=== PATIENT | male | born 1985 | race Caucasian/White ===

== ENCOUNTER 2016-05-07 09:52 | Observation (INO) ==
--- NOTE | 2016-05-07 10:03 | Emergency Department Note ---
Disposition Clinical Impression: Priapism Disposition: Admitted As Inpatient Condition: Good Referrals: Ramon Perry MD [Non-Partnered Physician] - Forms: ED Satisfaction Letter Male Urogenital HPI - General Chief complaint: ED Urogenital-Male Stated complaint: priapism Time Seen by Provider: 05/07/16 10:01 Source: patient Mode of arrival: ambulatory Limitations: no limitations Nursing Notes Reviewed: Yes Vital Signs Reviewed: Yes - History of Present Illness Pt Subjective Complaint: other (priapism) Duration: constant Location: penis Severity scale (1-10): 10 Improves with: none Worsens with: none other (multiple prior episodes) Reports: denies other symptoms - Related Data Home Medications Medication Instructions Recorded Confirmed Aripiprazole [Abilify] 15 mg PO DAILY 10/12/15 10/12/15 CarBAMazepine [Carbamazepine ER] 600 mg PO BID 10/12/15 10/12/15 Gabapentin [Neurontin] 600 mg PO TID 10/12/15 10/12/15 Ibuprofen [Motrin] 200 mg PO Q6HR PRN 10/12/15 10/12/15 Previous Rx's Medication Instructions Recorded Docusate [Colace] 100 mg PO BID #30 capsule 10/12/15 OxyCODONE/APAP 10/325 [Percocet 1 each PO Q4HR PRN #30 tablet 10/12/15 10/325 MG] Amoxicillin/Clavulanate [Augmentin] 875 mg PO BIDWM 14 Days 10/15/15 Ibuprofen [Motrin] 800 mg PO Q8HR #90 tablet 10/16/15 Ondansetron HCl [Zofran] 4 mg PO 1-3XD PRN #10 tablet 10/16/15 HYDROcodone/Acet 5/325 mg [[place] 1 tab PO Q6H PRN #12 tab 12/14/15 5-325 mg] Hydrocodone/Acetaminophen [[place] 1 tab PO Q6H PRN #10 tab 01/05/16 7.5-325 Tablet] Ibuprofen [Motrin] 600 mg PO Q8HR PRN #20 tab 02/28/16 Penicillin VK 500 mg PO QID #40 tablet 02/28/16 Tramadol HCl [Ultram] 50 mg PO TID PRN #20 tab 03/06/16 Allergies Allergy/AdvReac Type Severity Reaction Status Date / Time Bee Pollen Allergy Anaphylaxis Verified 03/06/16 08:39 All systems ED: reviewed and negative except as stated. Constitutional: Denies: fever, chills, weakness Gastrointestinal: Denies: nausea, vomiting Past Medical History - Past Medical History Source: patient, old records reviewed, nursing notes reviewed Medical history: Reports: hepatitis, hyperlipidemia, hypertension, other Surgical history: Reports: other (Priapism correction, R. wrist tendon replacement) Psychiatric history: Reports: anxiety, bipolar, depression - Social History Smoking Status: Current every day smoker Smokeless Tobacco Status: No Alcohol use: Reports: rarely Drug use: Reports: other Physical Exam - General Limitations: no limitations General appearance: alert, in no apparent distress - Head Head exam: normal inspection - Eye Eye exam: Present: normal appearance - ENT ENT exam: normal exam, normal oropharynx, mucous membranes moist, normal external ear exam - Neck Neck exam: Present: normal inspection, full ROM, trachea midline - Chest Chest inspection: Present: normal inspection, symmetric chest wall rise - Respiratory Respiratory exam: Present: normal lung sounds bilaterally - Cardiovascular Cardiovascular exam: Present: regular rate, normal rhythm, normal heart sounds - Male exam: Present: priapism - Extremities Exam Extremities exam: Present: normal inspection, full ROM - Back Exam Back exam: Present: normal inspection, full ROM - Neurological Exam Neurological exam: Present: alert, oriented X3, normal gait - Psychiatric Psychiatric exam: Present: normal affect, normal mood - Skin Skin exam: Present: warm, dry, intact, normal color Course - Reevaluation(s) Reevaluation #1: Dr. Montalvo to take him to the OR Time: 10:53 Vital Signs Temperature 97.8 F 05/07/16 10:01 Pulse Rate 92 05/07/16 10:01 Respiratory Rate 12 05/07/16 10:01 Blood Pressure 134/68 05/07/16 10:01 O2 Sat by Pulse Oximetry 100 05/07/16 10:01 Temperature 97.8 F 05/07/16 10:01 Pulse Rate 92 05/07/16 10:01 Respiratory Rate 12 05/07/16 10:01 Blood Pressure 134/68 05/07/16 10:01 O2 Sat by Pulse Oximetry 100 05/07/16 10:01 Oxygen Delivery Oxygen Delivery Room Air Urogenital-Male - Differential Diagnosis Likely: urinary tract infection, priapism, epididymitis, prostatitis, acute urinary retention, sexually tramsmitted disease - Medical Records Medical records reviewed: Yes I reviewed the patient's medical records.
[2016-05-07] MEDS ORDERED: Ondansetron 4 MG/2 ML VIAL IV ONE (10:09)
[2016-05-07] MEDS ORDERED: *HR* HYDROmorphone (PF) 1 MG/ML SYRINGE IV ONE (10:09)
[2016-05-07] MEDS ORDERED: *HR* LORazepam 2 MG/ML VIAL IVP ONE (10:39)
[2016-05-07] MEDS ORDERED: *HR* LORazepam 2 MG/ML VIAL ONE (10:40)
[2016-05-07] MEDS ORDERED: Ondansetron 4 MG/2 ML VIAL IVP ONE ×2 (10:50→12:38)
[2016-05-07] MEDS ORDERED: *HR* HYDROmorphone (PF) 1 MG/ML SYRINGE IVP ONE (10:50)
--- NOTE | 2016-05-07 11:00 | Urology History & Physical ---
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 He requires aspiration and phenylephrine injections. He states that the degree of pain at this time is too severe to proceed at the bedside. We'll proceed in the operating room within 1 hour. We discussed the risks of the procedure which includes injury to the penis, injury to the urethra, recurrent priapism, permanent erectile dysfunction, hematoma or bleeding, need for further surgery. We also discussed that he may require a distal shunt in the operating room and he accepts this possibility. History of Present Illness Chief complaint: priapism HPI: Mr. Sarabia is a 31 year old male well-known to urology service for recurrent priapism. He's had painful, 100% erection for the last 10 hours. Urinated this morning but has not urinated since. No relief in pain or decrease in the rigidity of the erection. He denies any new medications or illicit drugs Past Med Surg Social Fam HX - Past Medical History Medical history: hepatitis, hyperlipidemia, hypertension, other Psychiatric history: anxiety, bipolar, depression - Past Surgical History Surgical History: other (Priapism correction, R. wrist tendon replacement) - Social History Smoking Status: Current every day smoker Smokeless Tobacco Status: No Alcohol use: rarely Drug use: other - Family History Mother Living Status: Still Living Hx Family Cardiac Disorders: Yes Grandfather Hx Family Cardiac Disorders: Yes ([place]) Medications and Allergies Aripiprazole [Abilify] 15 mg PO DAILY 10/12/15 [History] CarBAMazepine [Carbamazepine ER] 600 mg PO BID 10/12/15 [History] Docusate [Colace] 100 mg PO BID #30 capsule 10/12/15 [Rx] Gabapentin [Neurontin] 600 mg PO TID 10/12/15 [History] Ibuprofen [Motrin] 200 mg PO Q6HR PRN 10/12/15 [History] OxyCODONE/APAP 10/325 [Percocet 10/325 MG] 1 each PO Q4HR PRN #30 tablet [Rx] Amoxicillin/Clavulanate [Augmentin] 875 mg PO BIDWM 14 Days 10/15/15 [Rx] Ibuprofen [Motrin] 800 mg PO Q8HR #90 tablet 10/16/15 [Rx] Ondansetron HCl [Zofran] 4 mg PO 1-3XD PRN #10 tablet 10/16/15 [Rx] HYDROcodone/Acet 5/325 mg [[place] 5-325 mg] 1 tab PO Q6H PRN #12 tab 12/14/15 [Rx ] Hydrocodone/Acetaminophen [[place] 7.5-325 Tablet] 1 tab PO Q6H PRN #10 tab [Rx] Ibuprofen [Motrin] 600 mg PO Q8HR PRN #20 tab 02/28/16 [Rx] Penicillin VK 500 mg PO QID #40 tablet 02/28/16 [Rx] Tramadol HCl [Ultram] 50 mg PO TID PRN #20 tab 03/06/16 [Rx] Allergies Bee Pollen Allergy (Verified 03/06/16 08:39) Anaphylaxis Review of Systems - Constitutional no fever(s) - EENT Nose, mouth and throat: no dizziness - Cardiovascular no chest pain - Respiratory no cough - Gastrointestinal abdominal pain, nausea - Genitourinary other - Musculoskeletal no back pain - Integumentary no erythema - Neurological no confusion - Psychiatric no anxiety - Hematologic/Lymphatic no easy bleeding - Allergic/Immunologic no throat swelling Exam Initial Vital Signs Temp Pulse Resp BP Pulse Ox 97.8 F 92 12 134/68 100 05/07/16 10:01 05/07/16 10:01 05/07/16 10:01 05/07/16 10:01 05/07/16 10:01 - General physical appearance Present: severe pain - Eyes Present: PERRL - ENT Present: normal nares - Neck Present: no masses - Respiratory Present: normal respiratory effort - Cardiovascular Cardiovascular exam IM: RRR - Abdomen Abdomen: Present: soft - Integumentary Present: no rash - Neurologic Present: normal coordination - Additional Findings 100% erection. No abnormal ecchymosis on the skin. Very tender to touch Urology Results - Labs All other labs normal.
--- NOTE | 2016-05-07 11:20 | Anesthesia Evaluation PreOp ---
Date of Encounter: 05/07/16 Time of Encounter: 11:18 - Past History Planned Operation: drainage priapism Cardiac History: HTN, Hyperlipidemia Pulmonary History: Smoker [employer] History: Other (anxiety, bipolar depression) Other Medical History: Hepatic (hcv), Other (h/o recurrent priapism, crohn's) Anesthesia History: No Prior Anesthetic Complications, Past Anesthesia (priapism , wrist, cholecys) Alcohol Use: rarely Drug use: other Medications and Allergies Aripiprazole [Abilify] 15 mg PO DAILY 10/12/15 [History] CarBAMazepine [Carbamazepine ER] 600 mg PO BID 10/12/15 [History] Docusate [Colace] 100 mg PO BID #30 capsule 10/12/15 [Rx] Gabapentin [Neurontin] 600 mg PO TID 10/12/15 [History] Ibuprofen [Motrin] 200 mg PO Q6HR PRN 10/12/15 [History] OxyCODONE/APAP 10/325 [Percocet 10/325 MG] 1 each PO Q4HR PRN #30 tablet [Rx] Amoxicillin/Clavulanate [Augmentin] 875 mg PO BIDWM 14 Days 10/15/15 [Rx] Ibuprofen [Motrin] 800 mg PO Q8HR #90 tablet 10/16/15 [Rx] Ondansetron HCl [Zofran] 4 mg PO 1-3XD PRN #10 tablet 10/16/15 [Rx] HYDROcodone/Acet 5/325 mg [[place] 5-325 mg] 1 tab PO Q6H PRN #12 tab 12/14/15 [Rx ] Hydrocodone/Acetaminophen [[place] 7.5-325 Tablet] 1 tab PO Q6H PRN #10 tab [Rx] Ibuprofen [Motrin] 600 mg PO Q8HR PRN #20 tab 02/28/16 [Rx] Penicillin VK 500 mg PO QID #40 tablet 02/28/16 [Rx] Tramadol HCl [Ultram] 50 mg PO TID PRN #20 tab 03/06/16 [Rx] Allergies Bee Pollen Allergy (Verified 03/06/16 08:39) Anaphylaxis - Meds/Allergy Pre-op Review Medications Reviewed: Yes Allergies Reviewed: Yes Beta Blockers on Current Med List: No Anesthesia Results - Labs Laboratory Tests 01/05/16 01/05/16 08:40 08:40 Hgb 15.6 Hct 45.2 Plt Count 271 Sodium 139 Potassium 4.4 Carbon Dioxide 25 Creatinine 0.73 Anesthesia Exam Vital Signs/O2 Sat/Glucose, Most Current Temp Pulse Resp BP Pulse Ox 05/07/16 11:07 0 132/73 05/07/16 10:01 97.8 F 92 12 134/68 100 Height: 1.88 Weight: 84 NPO (# of Hours): >8 - HEENT Pupil (Motor): Pupils equal, EOMI Mallampati: II Teeth: Poor dentition Oral Opening: Greater than 3 - [employer] LOC: Oriented [employer] Motor: Normal RUE, Normal LUE, Normal RLE, Normal LLE, Normal Face [employer] Sensory: Normal: RUE, LUE, RLE, LLE, Face - Cardiac Rhythm: Regular Murmur: None - Pulmonary Breath Sounds: bilateral Clear Respiratory Effort: Symmetrical Anesthesia Assess/Plan ASA Score: 2, E Modified [place] Scale for Level of Consciousness: Cooperative, oriented, and tranquil Anesthetic Plan: General Monitoring Plan: Standard Monitors Recovery Plan: PACU
[2016-05-07] MEDS ORDERED: *HR* Midazolam HCl 5 MG/5 ML VIAL IVP ONE (11:26)
[2016-05-07] MEDS ORDERED: Ringers Solution, Lactated 1,000 ML IVC SCH ×2 (11:30→12:45)
[2016-05-07] MEDS ORDERED: *HR* FentaNYL (PF) 100 MCG/2 ML VIAL ONE ×2 (12:00→12:10)
[2016-05-07] MEDS ORDERED: Lidocaine -MPF 2% 2 ML VIAL ONE (12:00)
[2016-05-07] MEDS ORDERED: *HR* Phenylephrine 10 MG/ML VIAL ONE (12:00)
[2016-05-07] MEDS ORDERED: *HR* Propofol 200 MG/20 ML VIAL IVP ONE (12:00)
[2016-05-07] MEDS ORDERED: Dexamethasone 4 MG/ML VIAL ONE (12:04)
[2016-05-07] MEDS ORDERED: Ondansetron 4 MG/2 ML VIAL ONE (12:04)
[2016-05-07] MEDS ORDERED: Bupivacaine-MPF 0.25% 10 ML VIAL ONE (12:35)
[2016-05-07] MEDS ORDERED: *HR* Meperidine 25 MG/ML SYRINGE IVP PRN (12:38)
[2016-05-07] MEDS ORDERED: Naloxone 0.4 MG/ML INJ IVP PRN ×3 (12:38→15:19)
[2016-05-07] MEDS ORDERED: *HR* HYDROmorphone (PF) 1 MG/ML SYRINGE IVP PRN ×3 (12:38→15:18)
[2016-05-07] MEDS ORDERED: Albuterol 2.5 MG/3 ML NEBULIZER IH ONE (12:38)
[2016-05-07] MEDS ORDERED: *HR* Labetalol 100 MG/20 ML MDV IVP PRN (12:38)
--- NOTE | 2016-05-07 13:23 | Anesthesia Evaluation Post Op ---
Date of Encounter: 05/07/16 Time of Encounter: 13:24 - Vital Signs Vital Signs: vss - Lungs Lungs: Clear Ascult./Percussion - Airway Airway: Non-obstructed - Cardiovascular Regular Rate - Mental Status Mental Status: Asleep with brisk response to light stimulation - Pain Pain Scale used: Rober (Faces) - Nausea Vomiting Nausea Vomiting: Not Present
--- NOTE | 2016-05-07 13:34 | Operative Note ---
Date of procedure: 05/07/16 Pre-op diagnosis: priapism for 10 hours Post-op diagnosis: same Procedure: aspiration and irrigation of priapism phenylephrine injection distal penile shunt Anesthesia: BENA Surgeon: Mohan Montalvo Estimated blood loss (cc): 100 Specimen: none Condition: stable Disposition: PACU Procedure in Detail: Patient was brought to the operating room position supine on the operating table. Anesthesia was applied without complication. He was noted to have 100% erection. He is prepped and draped sterile fashion. I performed a dorsal penile block using 1% lidocaine without epi. Stephenson catheter placed with return of clear urine. Butterfly needle placed in right penile shaft and a total of 1000mcg (2 separate 500mcg doses) of phenylephrine was injected with temporary reduction of the priapism. I then elected to place 2 14 gauge angiocaths through the glans penis into the tips of the corporal bodies crating a dorsal shunt. Moderate volume of dark blood was returned. Soon after began to appear more chanel red in appearance. The erection was down to 25% and not recurring. Angiocaths were removed and after observing the patient for 5 minutes there was no recurrence of the priapism. Xeroform gauze and Kerlix were placed. Catheter was left in position. No complications were noted.
[2016-05-07] MEDS ORDERED: *HR* Promethazine 25 MG/ML VIAL IVP PRN ×2 (13:40→15:20)
[2016-05-07] MEDS ORDERED: 0.9 % Sodium Chloride 1,000 ML IVC SCH ×2 (13:40→15:30)
[2016-05-07] MEDS ORDERED: *HR* Morphine 2 MG/ML SYRINGE IVP PRN ×2 (13:40→15:20)
[2016-05-07] MEDS ORDERED: Ondansetron 4 MG/2 ML VIAL IVP PRN ×2 (13:40→15:19)
[2016-05-07] MEDS ORDERED: Levofloxacin 500 MG/100 ML 500 MG/100 ML BAG IVPB SCH ×2 (13:40→16:00)
[2016-05-07] MEDS ORDERED: *HR* HYDROmorphone (PF) 1 MG/ML SYRINGE ONE (14:24)
[2016-05-07] MEDS ORDERED: *HR* HYDROcodone/Acet 5/325 mg TABLET PO SCH ×2 (16:00)
[2016-05-07 16:30] VITALS: BP 134/72
--- NOTE | 2016-05-07 16:37 | Discharge Summary ---
Date of Encounter: 05/07/16 Time of Encounter: 16:34 - Discharge Diagnosis (1) Priapism Priority: Primary Status: Resolved - Discharge Medications Prescriptions: OxyCODONE/APAP 10/325 [Percocet 10/325 MG] 1 each PO Q4HR PRN #30 tablet PRN Reason: Pain Home Medications: Aripiprazole [Abilify] 15 mg PO DAILY 10/12/15 [History] CarBAMazepine [Carbamazepine ER] 600 mg PO BID 10/12/15 [History] Docusate [Colace] 100 mg PO BID #30 capsule 10/12/15 [Rx] Gabapentin [Neurontin] 600 mg PO TID 10/12/15 [History] Ibuprofen [Motrin] 200 mg PO Q6HR PRN 10/12/15 [History] Ibuprofen [Motrin] 800 mg PO Q8HR #90 tablet 10/16/15 [Rx] Ondansetron HCl [Zofran] 4 mg PO 1-3XD PRN #10 tablet 10/16/15 [Rx] Ibuprofen [Motrin] 600 mg PO Q8HR PRN #20 tab 02/28/16 [Rx] Tramadol HCl [Ultram] 50 mg PO TID PRN #20 tab 03/06/16 [Rx] OxyCODONE/APAP 10/325 [Percocet 10/325 MG] 1 each PO Q4HR PRN #30 tablet [Rx] Allergies/Adverse Reactions: Allergies Bee Pollen Allergy (Verified 03/06/16 08:39) Anaphylaxis Date of admission: 05/07/16 13:50 Primary care physician: PCP JEANNA Discharging clinician: Mohan Montalvo Anticipated date of discharge: 05/07/16 - Patient Status Disposition: Home, Self-Care Condition: Good Functional capacity at discharge: independent ambulation Overall status at discharge: patient is progressing back to baseline - Discharge Instructions Follow Up With: JEANNA,PCP [Primary Care Provider] - Mohan Montalvo MD [Partnered Physician] - (pt needs to follow with either Alexy or Selvin in 2-4 weeks. ) Additional Instructions: ok to shower tomorrow apply antibiotic ointment to head of penis call or go to ER if recurrent priapism - Diet and Activity Activity: increase activity as tolerated Diet: advance to your usual diet - Hospital Course Hospital course: Mr. Sarabia is a 31 year old male priapism for 10 hours. s/p distal shunt and phenylephrine. complete resolution of erection postoperatively on 3a. pt wants to go home. I recommended staying overnight to monitor erection but pt declines and accepts risk of recurrent priapism. - Time Spent with Patient Total time spent providing and/or coordinating discharge services: Less than 30 minutes Exam Initial Vital Signs Temp Pulse Resp BP Pulse Ox 97.8 F 92 12 134/68 100 05/07/16 10:01 05/07/16 10:01 05/07/16 10:01 05/07/16 10:01 05/07/16 10:01 - General physical appearance Present: no distress - Additional Findings howard with clear urine. 0% erection. minimal bruising. - VTE Documentation of Mechanical Device: Intermittent pneumatic compression device
== END 2016-05-07 17:52 | disposition home or self-care (01) ==
LOC: 3ANU 09:52 → EMEROO 09:52 → 3ANU 14:30
PROVIDERS: ADMIT Urology; ATTEND Urology

== ENCOUNTER 2017-06-15 10:35 | Inpatient (IN) ==
--- NOTE | 2017-06-15 10:57 | Emergency Department Note ---
Disposition Clinical Impression: Suicidal ideations, Substance abuse Disposition: Admitted As Inpatient Condition: Fair Referrals: NONE,PCP [Primary Care Provider] - Forms: ED Satisfaction Letter Time of Disposition: 14:18 Psych HPI - General Chief Complaint: ED Psychiatric Symptoms Stated Complaint: SI Time Seen by Provider: 06/15/17 10:43 Source: patient Mode of arrival: ambulatory Limitations: no limitations Nursing Notes Reviewed: Yes Vital Signs Reviewed: Yes - History of Present Illness HPI Narrative: 32-year-old male with a history of psychiatric issues presents for evaluation of suicidal ideations. Patient states that he has a history of drug use with recent methamphetamine Suboxone use yesterday. States he has been off his psych meds for proximally 6 months. Patient does have a plan of your walking out from a traffic or using a gun or cutting his wrist. Patient denies any homicidal ideations. Patient states sometimes sees things that are not there and describes visual hallucinations. Patient states that his depression stems from his history of drug use as well as his family history and relationships. States that he cannot see his kids. States that he is from his . - Related Data Home Medications Medication Instructions Recorded Confirmed Aripiprazole [Abilify] 15 mg PO DAILY 10/12/15 10/12/15 CarBAMazepine [Carbamazepine ER] 600 mg PO BID 10/12/15 10/12/15 Gabapentin [Neurontin] 600 mg PO TID 10/12/15 10/12/15 Ibuprofen [Motrin] 200 mg PO Q6HR PRN 10/12/15 10/12/15 Previous Rx's Medication Instructions Recorded Docusate [Colace] 100 mg PO BID #30 capsule 10/12/15 Ibuprofen [Motrin] 800 mg PO Q8HR #90 tablet 10/16/15 Ondansetron HCl [Zofran] 4 mg PO 1-3XD PRN #10 tablet 10/16/15 Ibuprofen [Motrin] 600 mg PO Q8HR PRN #20 tab 02/28/16 Tramadol HCl [Ultram] 50 mg PO TID PRN #20 tab 03/06/16 OxyCODONE/APAP 10/325 [Percocet 1 each PO Q4HR PRN #30 tablet 05/07/16 10/325 MG] Oxycodone HCl/Acetaminophen 1 each PO Q4H PRN #20 tablet 05/19/16 [Percocet 10-325 mg Tablet] Oxycodone HCl/Acetaminophen 1 each PO Q6-8H PRN #10 tablet 05/25/16 [Percocet 5-325 mg Tablet] Naproxen [Naprosyn] 500 mg PO BID PRN #20 tablet 06/19/16 Cyclobenzaprine [Flexeril] 10 mg PO TID #15 tablet 07/15/16 Tramadol HCl [Ultram] 50 mg PO Q6HR PRN #20 tab 07/15/16 Naproxen [EC-Naprosyn] 500 mg PO BID #10 tablet. 07/18/16 diazePAM [Valium] 5 mg PO BID #10 tablet 07/18/16 predniSONE [PredniSONE] 60 mg PO NOW 5 Days tablet 07/18/16 OxyCODONE/APAP 5/325 [Percocet 1 each PO Q4HR PRN #30 tablet 07/25/16 5/325 MG] Penicillin VK 500 mg PO TID 7 Days tablet 03/30/17 Allergies Allergy/AdvReac Type Severity Reaction Status Date / Time Bee Pollen Allergy Anaphylaxis Verified 12/16/16 07:30 All systems ED: reviewed and negative except as stated. Constitutional: Denies: fever Cardiovascular: Denies: chest pain Respiratory: Denies: cough, dyspnea Gastrointestinal: Denies: abdominal pain, nausea, vomiting Neurological: Reports: headache Past Medical History - Past Medical History Source: patient Medical history: Reports: hepatitis, hypertension, other Surgical history: Reports: cholecystectomy, other Psychiatric history: Reports: anxiety, bipolar, depression - Social History Smoking Status: Current every day smoker Smokeless Tobacco Status: No Alcohol use: Reports: none, recent Drug use: Reports: opiates, methamphetamine, prescription drug abuse, other Physical Exam - General Limitations: no limitations General appearance: alert, in no apparent distress, other (appears unkept with poor hygiene) - Head Head exam: atraumatic, normocephalic, normal inspection - Eye Eye exam: Present: normal appearance, PERRL, EOMI. Absent: miosis, mydriasis - ENT ENT exam: normal exam - Neck Neck exam: Present: normal inspection - Chest Chest inspection: Present: normal inspection, symmetric chest wall rise - Respiratory Respiratory exam: Present: normal lung sounds bilaterally. Absent: respiratory distress - Cardiovascular Cardiovascular exam: Present: regular rate, normal rhythm. Absent: systolic murmur - Abdominal Exam Abdominal exam: Present: soft, Non-Tender - Extremities Exam Extremities exam: Present: normal inspection. Absent: pedal edema - Back Exam Back exam: Present: normal inspection - Neurological Exam Neurological exam: Present: alert, oriented X3, CN II-XII intact - Skin Skin exam: Present: warm, dry, intact, normal color Course Course Narrative: Patient will be medically cleared and disposition per psych. - Consultations Consultation #1: 1 A called. Time: 13:12 Vital Signs Temperature 97.8 F 06/15/17 10:38 Pulse Rate 93 06/15/17 10:38 Respiratory Rate 18 06/15/17 10:38 Blood Pressure 151/102 06/15/17 10:38 O2 Sat by Pulse Oximetry 99 06/15/17 10:38 Temperature 97.8 F 06/15/17 10:38 Pulse Rate 93 06/15/17 10:38 Respiratory Rate 18 06/15/17 10:38 Blood Pressure 151/102 06/15/17 10:38 O2 Sat by Pulse Oximetry 99 06/15/17 10:38 Oxygen Delivery Oxygen Delivery Room Air Psych - Lab Data Result diagrams: 06/15/17 10:52 06/15/17 10:52 Lab Results 06/15/17 06/15/17 06/15/17 Range/Units 10:52 10:52 12:46 WBC 7.4 (4.3-11.1) K/mcL RBC 5.18 (4.19-5.50) M/mcL Hgb 15.6 (12.9-16.9) g/dL Hct 47.1 (37.5-50.1) % MCV 90.9 (83.0-100.0) fL MCH 30.1 (28.0-33.3) pg MCHC 33.1 (31.6-35.5) g/dL RDW 13.1 (11.5-14.5) % Plt Count 261 (140-400) K/mcL MPV 8.9 L (9.4-12.4) fL Immature Gran % 0.3 (0-4) % Seg Neutrophils % 49.0 % Lymphocytes % 38.1 % Monocytes % 9.7 % Eosinophils % 2.4 % Basophils % 0.5 % Neutrophils # 3.6 (1.6-8.9) K/mcL Lymphocytes # 2.8 (0.6-4.6) K/mcL Monocytes # 0.7 (0.0-1.3) K/mcL Eosinophils # 0.2 (0.0-0.6) K/mcL Basophils # 0.0 (0.0-0.2) K/mcL Sodium 135 L (136-145) mEq/L Potassium 3.9 (3.5-5.1) mEq/L Chloride 101 (98-107) mEq/L Carbon Dioxide 30 H (23-29) mEq/L BUN 15 (6-20) mg/dL Creatinine 0.80 (0.70-1.30) mg/dL Est GFR ( Amer) > 60 (> 60) Est GFR (Non-Af Amer) > 60 (> 60) BUN/Creatinine Ratio 19 (6-26) Glucose 85 (70-105) mg/dL Calculated Osmolality 280 (280-300) Calcium 9.4 (8.6-10.3) mg/dL Urine Color Yellow (Yellow) Urine Clarity Clear (Clear) Urine pH 6.0 (5.0-8.0) pH Units Ur Specific Mize 1.026 H (1.010-1.025) Urine Protein Negative (Neg-Trace) mg/dL Urine Glucose (UA) Normal (Normal) mg/dL Urine Ketones Negative (Negative) mg/dL Urine Blood Negative (Negative) Urine Nitrite Negative (Negative) Urine Bilirubin Negative (Negative) Urine Urobilinogen Normal (Normal) mg/dL Ur Leukocyte Esterase Negative (Negative) Salicylates < 5.0 L (15.0-30.0) mg/dL Urine Opiates Screen (Uezxms=995) ng/mL Acetaminophen < 1.0 L (10-30) mcg/mL Ur Barbiturates Screen (Pwmjik=416) ng/mL Ur Phencyclidine Scrn (Cutoff=25) ng/mL Ur Amphetamines Screen (Urgzqy=9808) ng/mL U Benzodiazepines Scrn (Cxmiqo=167) ng/mL Urine Cocaine Screen (Cutoff= 300) ng/mL U Marijuana (THC) Screen (Cutoff = 50) ng/mL Ethyl Alcohol < 10 (0-10) mg/dL 06/15/17 Range/Units 12:46 WBC (4.3-11.1) K/mcL RBC (4.19-5.50) M/mcL Hgb (12.9-16.9) g/dL Hct (37.5-50.1) % MCV (83.0-100.0) fL MCH (28.0-33.3) pg MCHC (31.6-35.5) g/dL RDW (11.5-14.5) % Plt Count (140-400) K/mcL MPV (9.4-12.4) fL Immature Gran % (0-4) % Seg Neutrophils % % Lymphocytes % % Monocytes % % Eosinophils % % Basophils % % Neutrophils # (1.6-8.9) K/mcL Lymphocytes # (0.6-4.6) K/mcL Monocytes # (0.0-1.3) K/mcL Eosinophils # (0.0-0.6) K/mcL Basophils # (0.0-0.2) K/mcL Sodium (136-145) mEq/L Potassium (3.5-5.1) mEq/L Chloride (98-107) mEq/L Carbon Dioxide (23-29) mEq/L BUN (6-20) mg/dL Creatinine (0.70-1.30) mg/dL Est GFR ( Amer) (> 60) Est GFR (Non-Af Amer) (> 60) BUN/Creatinine Ratio (6-26) Glucose (70-105) mg/dL Calculated Osmolality (280-300) Calcium (8.6-10.3) mg/dL Urine Color (Yellow) Urine Clarity (Clear) Urine pH (5.0-8.0) pH Units Ur Specific Mize (1.010-1.025) Urine Protein (Neg-Trace) mg/dL Urine Glucose (UA) (Normal) mg/dL Urine Ketones (Negative) mg/dL Urine Blood (Negative) Urine Nitrite (Negative) Urine Bilirubin (Negative) Urine Urobilinogen (Normal) mg/dL Ur Leukocyte Esterase (Negative) Salicylates (15.0-30.0) mg/dL Urine Opiates Screen Negative (Huksdv=953) ng/mL Acetaminophen (10-30) mcg/mL Ur Barbiturates Screen Negative (Eatvai=925) ng/mL Ur Phencyclidine Scrn Negative (Cutoff=25) ng/mL Ur Amphetamines Screen Positive H (Qqlseh=4596) ng/mL U Benzodiazepines Scrn Negative (Nrbepm=529) ng/mL Urine Cocaine Screen Negative (Cutoff= 300) ng/mL U Marijuana (THC) Screen Positive H (Cutoff = 50) ng/mL Ethyl Alcohol (0-10) mg/dL Psychiatric Medical Clearance - Medical Clearance Checklist Does the patient have a NEW psychiatric condition?: No Any abnormalities indicating possible medical illness?: No Any history of medical issues?: No Medical History: Depressive disorder (Acute) Priapism (Resolved) Abdominal pain (Acute) Cholecystitis (Acute) Cholelithiasis (Acute) Hepatitis C (Chronic) Leukocytosis (Acute) Suicidal ideations (Acute) Substance abuse (Acute) Abdominal pain (Inactive) Abdominal pain (Inactive) Acute infective gastroenteritis (Inactive) Acute otitis externa (Inactive) Alcohol intoxication (Inactive) Alcohol intoxication (Inactive) Alcoholism (Inactive) Anxiety disorder (Inactive) Biliary colic (Inactive) Bipolar 1 disorder, depressed (Inactive) Bulging disc (Inactive) Cellulitis (Inactive) Closed nondisplaced fracture of fifth metacarpal bone of right hand (Inactive) Contusion of left hand (Inactive) Decreased responsiveness (Inactive) Dental caries (Inactive) Dental cavity (Inactive) Depression (Inactive) Hand fracture, right (Inactive) Hepatitis C (Inactive) History of elopement from health care facility (Inactive) History of priapism (Inactive) Induration of skin (Inactive) Lumbar radiculopathy (Inactive) Medical clearance for psychiatric admission (Inactive) Poisoning by opiate or related narcotic (Inactive) Postoperative abdominal pain (Inactive) Postoperative pain (Inactive) Priapism (Inactive) Priapism (Inactive) Priapism (Inactive) Priapism (Inactive) Priapism (Inactive) Priapism (Inactive) Priapism (Inactive) Priapism (Inactive) Priapism (Inactive) Priapism (Inactive) Priapism (Inactive) Priapism (Inactive) Priapism (Inactive) Priapism (Inactive) Radial head fracture, closed (Inactive) Strain of lumbar region (Inactive) Testicular pain (Inactive) Thoracic back pain (Inactive) Toothache (Inactive) Toothache (Inactive) Toothache (Inactive) Vision loss (Inactive) No Social History Section defined Any abnormal vital signs prior to transfer?: No Current Vitals: Last Vital Signs Temp 97.8 F 06/15/17 10:38 Pulse 93 06/15/17 10:38 Resp 18 06/15/17 10:38 BP 151/102 06/15/17 10:38 Pulse Ox 99 06/15/17 10:38 Is the patient intoxicated or cognitively impaired?: No Psychiatric Lab Panel: Drug Levels and Toxicity 06/15/17 06/15/17 10:52 12:46 Urine Opiates Screen Negative Acetaminophen < 1.0 L Ur Barbiturates Screen Negative Ur Phencyclidine Scrn Negative Ur Amphetamines Screen Positive H U Benzodiazepines Scrn Negative Urine Cocaine Screen Negative U Marijuana (THC) Screen Positive H Ethyl Alcohol < 10 Any abnormalities on the physical exam?: No Any abnormal labs?: No Abnormal Labs: Abnormal lab results MPV 8.9 fL (9.4-12.4) L 06/15/17 10:52 Sodium 135 mEq/L (136-145) L 06/15/17 10:52 Carbon Dioxide 30 mEq/L (23-29) H 06/15/17 10:52 Ur Specific Mize 1.026 (1.010-1.025) H 06/15/17 12:46 Salicylates < 5.0 mg/dL (15.0-30.0) L 06/15/17 10:52 Acetaminophen < 1.0 mcg/mL (10-30) L 06/15/17 10:52 Ur Amphetamines Screen Positive ng/mL (Dixptm=9417) H 06/15/17 12:46 U Marijuana (THC) Screen Positive ng/mL (Cutoff = 50) H 06/15/17 12:46 Does the patient require durable medical equiptment?: No Is the patient ambulatory?: No Is the patient a fall risk?: No Has the patient been medically cleared?: Yes Any acute medical condition require Tx prior to transfer?: No Attestation Statement - Attestation Attestation: Patient was seen with resident physician. I reviewed the history, physical, assessment and plan, and agree with the findings. I also personally evaluated this patient and had [id number] time with this patient. 32-year-old male presents to the emergency Department chief complaint suicidal ideation plan is to either cut wrists or step in front of a car, his been contemplating this report approximately 6 months, it has been worse over the last 2 days. Patient states that he stopped all of his psych medicines sometime ago because he did not think they are working, he is still taking however and amphetamines which have not been prescribed to him. Denies fevers or chills. He has of a headache does note that his last use of amphetamines yesterday. Also some mild abdominal discomfort. Remainder review of systems was completely and negative except as indicated above. Physical exam area vital signs are stable. ENT is unremarkable. Heart and lungs are normal. Abdomen is soft and nontender. Extremities are largely unremarkable. Neurologically alert and oriented no focal deficits. Psych patient appears depressed. ED course. We will do standard labs for medical clearance for psych department. We will contact one a and they will come do an evaluation of the patient. Ultimately his disposition will depend on their findings and treatment plan. Psych did agree that the patient required inpatient hospitalization. He is placed on an involuntary admission. Hemodynamically he remained stable and cleared to go to the psychiatry floor. I agree with the resident physician assessment and plan.
[2017-06-15 11:07] LABS: Basophils % 0.5 %; Eosinophils # 0.2 K/mcL (0.0-0.6); Eosinophils % 2.4 %; Hematocrit 47.1 % (37.5-50.1); Hemoglobin 15.6 g/dL (12.9-16.9); Immature Granulocytes % 0.3 % (0-4); Lymphocytes # 2.8 K/mcL (0.6-4.6); Lymphocytes % 38.1 %; Mean Corpuscular HGB Conc 33.1 g/dL (31.6-35.5); Mean Corpuscular Hemoglobin 30.1 pg (28.0-33.3); Mean Corpuscular Volume 90.9 fL (83.0-100.0); Mean Platelet Volume 8.9 fL (9.4-12.4); Monocytes # 0.7 K/mcL (0.0-1.3); Monocytes % 9.7 %; Neutrophils # 3.6 K/mcL (1.6-8.9); Platelet Count 261 K/mcL (140-400); Red Blood Count 5.18 M/mcL (4.19-5.50); Red Cell Distribution Width 13.1 % (11.5-14.5)
[2017-06-15 11:20] LABS: Acetaminophen < 1.0 mcg/mL (10-30); Ethanol < 10 mg/dL (0-10); Salicylate < 5.0 mg/dL (15.0-30.0)
[2017-06-15 11:22] LABS: BUN/Creatinine Ratio 19 (6-26); Blood Urea Nitrogen 15 mg/dL (6-20); Calcium 9.4 mg/dL (8.6-10.3); Carbon Dioxide 30 mEq/L (23-29); Chloride 101 mEq/L (98-107); Glucose 85 mg/dL (70-105); Osmolality,Calculated 280 (280-300); Potassium 3.9 mEq/L (3.5-5.1); Sodium 135 mEq/L (136-145); eGFR For African Americans > 60 (> 60); eGFR For Non-African Americans > 60 (> 60)
[2017-06-15 12:56] LABS: Bilirubin,Urine Negative (Negative); Blood,Urine Negative (Negative); Clarity,Urine Clear (Clear); Color,Urine Yellow (Yellow); Glucose,Urine (UA) Normal (Normal); Ketones,Urine Negative (Negative); Leukocyte Esterase,Urine Negative (Negative); Nitrite,Urine Negative (Negative); Protein,Urine Negative (Neg-Trace); Specific Gravity,Urine 1.026 (1.010-1.025); Urobilinogen,Urine Normal (Normal)
[2017-06-15 13:06] LABS: Amphetamine Screen,Urine Positive ng/mL (Cutoff=1000); Barbiturate Screen,Urine Negative ng/mL (Cutoff=200); Benzodiazepines Screen,Urine Negative ng/mL (Cutoff=200); Cannabinoid Screen,Urine Positive ng/mL (Cutoff = 50); Cocaine Screen,Urine Negative ng/mL (Cutoff= 300); Opiate Screen,Urine Negative ng/mL (Cutoff=300); Phencyclidine Screen,Urine Negative ng/mL (Cutoff=25)
[2017-06-15] MEDS ORDERED: *HR* LORazepam 2 MG/ML VIAL IM PRN (15:17)
[2017-06-15] MEDS ORDERED: hydrOXYzine pamoate 25 MG CAPSULE PO PRN (15:17)
[2017-06-15] MEDS ORDERED: Mag Hydrox/Al Hydrox/Simeth 30 ML UDC PO PRN (15:17)
[2017-06-15] MEDS ORDERED: Nicotine 2 MG GUM BC PRN (15:17)
[2017-06-15] MEDS ORDERED: MOM Conc 10 ML UD.LIQ PO PRN (15:17)
[2017-06-15] MEDS ORDERED: *HR* LORazepam 1 MG TABLET PO PRN (15:17)
[2017-06-15] MEDS ORDERED: Haloperidol Lactate 5 MG/ML VIAL IM PRN (15:17)
[2017-06-15] MEDS ORDERED: traZODone 50 MG TABLET PO PRN (15:17)
[2017-06-15] MEDS ORDERED: Ibuprofen 400 MG TABLET PO PRN (15:17)
--- NOTE | 2017-06-16 14:13 | Psychiatry History & Physical ---
Date of Encounter: 06/16/17 Time of Encounter: 14:00 History of Present Illness Patient Stated Chief Complaint: I have been off of my meds, and I was suicidal Medicare Admission Attestation: For traditional Medicare patients the provided hospital inpatient services are reasonable and necessary and in the case of services not specified as inpatient -only under 42 CFR 419.22 (n), that they are appropriately provided as inpatient services in accordance 42 CFR 412.3. For Critical Access Hospital the patient may reasonably be expected to be discharged or transferred to a hospital within 96 hours after admission to the Critical Access Hospital. Admitted From: Emergency Dept Plans for Post Hospital Care: Transfer Other History of Present Illness: Mr. Sarabia is a 32 year old male reports that he is single. The patient is unable to provide extensive history with elaboration. Chief complaint history followed at [facility] been off those medicines. History of present illness": The patient was not taking his psychiatric medicines. He had been using drugs over the 6 month period of time. He reports running and gunning. This for first to the continuous use primarily of methamphetamine. At the time of admission the patient was suicidal with an intent to shoot himself if he got a gun. run out in traffic ,or stab self. The patient had not been seen at the [facility] clinic by Dr. Pineda about 6- 7 months ago. He had done some rehabilitation by going for 1 month at [facility]. Currently he has no home he has no friends he can stay with and reports no family close by. The patient presented in a agitated state with muscle jerks and reported significant irritability he also reports some withdrawal symptoms. The patient's psychiatric history has been significant for treatment for bipolar disorder. The patient's treating medicines were probably Abilify 15 mg every morning carbamazepine 600 mg twice a day Neurontin 600 mg 3 times a day The patient is not sure that these worked very well. The patient has an extensive psychiatric history for substance abuse. He was last treated by Dr. Lon burdick in 2016 with Suboxone. The patient reports that he uses Suboxone in this 2 year period of time mostly to help calm down denies abusing alcohol. And says he has not used heroin enough to get him withdrawal. Rather he is switched to methamphetamine. He has been rather consistent. The drug screen at the time of admission was positive for marijuana and amphetamines. Past psychiatric history includes a hospitalization on 1 and a period of not been able to review this record. The patient reports currently that in addition to the mood and irritability he has visual and auditory hallucinations. He sees people that are not there and knows that they cannot be there looks away and another on. At other times he hears voices talking to him. Past medical history significant for surgery for the condition of priapism. This is include Cole. Priapism continues to occur in the past is been treated with for this. Illnesses none allergies bee stings no known drug allergies NKDA. Family history is significant for a father and a paternal uncle both by suicide. The patient's father had an alcohol problem the patient's paternal uncle and father had a drug problem. 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 Full social history could not be obtained. Review of systems significant for muscle jerks visual hallucinations headache tendinitis lungs are clear. No heart problems his muscles hurt he has no history of seizures. He has dental problems and tooth pain. The patient has a skin condition called ichthyosis Patient has no insurance and is a resident of [facility] HX - Past Medical History Source: patient Medical history: hepatitis, hypertension, other - Past Psychiatric History Psychiatric history: Reports: previous psychiatric hospitalization Family psychiatric history: Yes Family History of Suicide: Completed - Past Surgical History Surgical History: cholecystectomy, other - Social History Smoking Status: Current every day smoker Smokeless Tobacco Status: No Alcohol use: none, recent Drug use: opiates, methamphetamine, prescription drug abuse, other Occupational status: unemployed Current living situation: Homeless Activity Level: Independent ambulation Recent Out of Country Travel Within the Last 8 Weeks: No Exposure or Possible Exposure to Illness During Travel: Yes - Family History Mother Living Status: Still Living Hx Family Cardiac Disorders: Yes Grandfather Hx Family Cardiac Disorders: Yes ([place]) Medications & Allergies No Known Home Drugs 06/15/17 [History] 3 Allergy/AdvReac Type Severity Reaction Status Date / Time Bee Pollen Allergy Anaphylaxis Verified 06/15/17 14:27 Review of Systems Constitutional: Reports: weight change Ears, Nose, Throat: Reports: other Cardiovascular: Denies: chest pain, palpitations, dyspnea on exertion Respiratory: Denies: cough, dyspnea, wheezes Gastrointestinal: Reports: nausea Genitourinary male: Reports: other Musculoskeletal: Reports: myalgia Integumentary: Reports: other Neurological: Denies: headache, weakness, numbness, memory loss Psychiatric: Reports: depression, auditory hallucinations, visual hallucinations , difficulty concentrating, irritability Endocrine: Denies: fatigue, heat or cold intolerance Hematologic/Lymphatic: Reports: other Allergic/Immunologic: Reports: urticaria Exam - HEENT Head exam IM: Present: normal inspection, normocephalic Eye exam IM: Present: conjunctival injection, EOMI ENT exam IM: Present: mucous membranes dry - Neurological Neurological exam: Present: CN II-XII intact, alert, reflexes normal - Respiratory Respiratory exam IM: Present: CTAB - GI/Abdominal GI/Abdominal exam IM: Present: normal bowel sounds - Extremities Extremities exam IM: Present: joint swelling - Skin Skin exam IM: Present: dry - Constitutional Vitals: Temp Pulse Resp BP Pulse Ox 97.2 F L 103 18 136/99 99 06/16/17 08:58 06/16/17 08:58 06/16/17 08:58 06/16/17 08:58 06/15/17 10:38 General appearance: age & developmentally appropriate, thin - Musculoskeletal Gait: brisk Station: shaky Strength & Tone: normal for patient - Psychiatric Patient Orientation: Yes Person, Yes Time, Yes Place, Yes Circumstance Level of alertness: Alert Behavior: nervous, anxious Psychomotor activity: Abnormal movements Eye Contact: Minimal Contact Mood Description: Depressed, Irritable Affect description: full range Speech Volume: Normal Speech pattern: limited Language & Vocabulary: consistent with education Thought Process: Intact, Goal Oriented Thought Content: Yes Suicidal ideation, Yes Obsessive thoughts Perceptual Disturbances: Yes Auditory hallucinations, Yes Visual hallucinations Attention Span Ability: Unable to Focus Memory Description: Immediate Intact, Recent Intact, Remote Intact Patient Reliability: Questionable Historian Fund of knowledge: Yes above average Intelligence Estimate: Average Judgment: Limited Insight: Minimal Results - Labs Labs: Laboratory Last Values WBC 7.4 K/mcL (4.3-11.1) 06/15/17 10:52 RBC 5.18 M/mcL (4.19-5.50) 06/15/17 10:52 Hgb 15.6 g/dL (12.9-16.9) 06/15/17 10:52 Hct 47.1 % (37.5-50.1) 06/15/17 10:52 MCV 90.9 fL (83.0-100.0) 06/15/17 10:52 MCH 30.1 pg (28.0-33.3) 06/15/17 10:52 MCHC 33.1 g/dL (31.6-35.5) 06/15/17 10:52 RDW 13.1 % (11.5-14.5) 06/15/17 10:52 Plt Count 261 K/mcL (140-400) 06/15/17 10:52 MPV 8.9 fL (9.4-12.4) L 06/15/17 10:52 Immature Gran % 0.3 % (0-4) 06/15/17 10:52 Seg Neutrophils % 49.0 % 06/15/17 10:52 Lymphocytes % 38.1 % 06/15/17 10:52 Monocytes % 9.7 % 06/15/17 10:52 Eosinophils % 2.4 % 06/15/17 10:52 Basophils % 0.5 % 06/15/17 10:52 Neutrophils # 3.6 K/mcL (1.6-8.9) 06/15/17 10:52 Lymphocytes # 2.8 K/mcL (0.6-4.6) 06/15/17 10:52 Monocytes # 0.7 K/mcL (0.0-1.3) 06/15/17 10:52 Eosinophils # 0.2 K/mcL (0.0-0.6) 06/15/17 10:52 Basophils # 0.0 K/mcL (0.0-0.2) 06/15/17 10:52 Sodium 135 mEq/L (136-145) L 06/15/17 10:52 Potassium 3.9 mEq/L (3.5-5.1) 06/15/17 10:52 Chloride 101 mEq/L (98-107) 06/15/17 10:52 Carbon Dioxide 30 mEq/L (23-29) H 06/15/17 10:52 BUN 15 mg/dL (6-20) 06/15/17 10:52 Creatinine 0.80 mg/dL (0.70-1.30) 06/15/17 10:52 Est GFR ( Amer) > 60 (> 60) 06/15/17 10:52 Est GFR (Non-Af Amer) > 60 (> 60) 06/15/17 10:52 BUN/Creatinine Ratio 19 (6-26) 06/15/17 10:52 Glucose 85 mg/dL (70-105) 06/15/17 10:52 Calculated Osmolality 280 (280-300) 06/15/17 10:52 Calcium 9.4 mg/dL (8.6-10.3) 06/15/17 10:52 Urine Color Yellow (Yellow) 06/15/17 12:46 Urine Clarity Clear (Clear) 06/15/17 12:46 Urine pH 6.0 pH Units (5.0-8.0) 06/15/17 12:46 Ur Specific Mobile 1.026 (1.010-1.025) H 06/15/17 12:46 Urine Protein Negative mg/dL (Neg-Trace) 06/15/17 12:46 Urine Glucose (UA) Normal mg/dL (Normal) 06/15/17 12:46 Urine Ketones Negative mg/dL (Negative) 06/15/17 12:46 Urine Blood Negative (Negative) 06/15/17 12:46 Urine Nitrite Negative (Negative) 06/15/17 12:46 Urine Bilirubin Negative (Negative) 06/15/17 12:46 Urine Urobilinogen Normal mg/dL (Normal) 06/15/17 12:46 Ur Leukocyte Esterase Negative (Negative) 06/15/17 12:46 Salicylates < 5.0 mg/dL (15.0-30.0) L 06/15/17 10:52 Urine Opiates Screen Negative ng/mL (Iustpg=377) 06/15/17 12:46 Acetaminophen < 1.0 mcg/mL (10-30) L 06/15/17 10:52 Ur Barbiturates Screen Negative ng/mL (Xmcukw=233) 06/15/17 12:46 Ur Phencyclidine Scrn Negative ng/mL (Cutoff=25) 06/15/17 12:46 Ur Amphetamines Screen Positive ng/mL (Xtwthx=8502) H 06/15/17 12:46 U Benzodiazepines Scrn Negative ng/mL (Gssbig=558) 06/15/17 12:46 Urine Cocaine Screen Negative ng/mL (Cutoff= 300) 06/15/17 12:46 U Marijuana (THC) Screen Positive ng/mL (Cutoff = 50) H 06/15/17 12:46 Ethyl Alcohol < 10 mg/dL (0-10) 06/15/17 10:52 Assessment and Plan (1) Suicidal ideations Current visit: Yes Status: Acute Estimated Length of Stay (Days): 14 (2) Other bipolar disorder Current visit: Yes Status: Acute Plan: Admit inpatient for safety and stabilization, Close observation, Suicide Precautions per unit protocol Risks, benefits, side effects, alternatives discussed w/pt: Yes Patient agreeable to treatment: Yes Plans for Post Hospital Care: Transfer Other Estimated Length of Stay (Days): 14 (3) Other stimulant dependence with stimulant-induced mood disorder Current visit: Yes Status: Acute Plan: Admit inpatient for safety and stabilization, Group Therapy Risks, benefits, side effects, alternatives discussed w/pt: Yes Patient agreeable to treatment: Yes Plans for Post Hospital Care: Transfer Other Estimated Length of Stay (Days): 14 (4) 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 Current visit: Yes Status: Acute Plan: Admit inpatient for safety and stabilization, Close observation Risks, benefits, side effects, alternatives discussed w/pt: Yes Patient agreeable to treatment: Yes Plans for Post Hospital Care: Transfer Other (5) 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 Current visit: Yes Status: Acute Plan: Close observation Risks, benefits, side effects, alternatives discussed w/pt: Yes Patient agreeable to treatment: Yes Plans for Post Hospital Care: Transfer Other Estimated Length of Stay (Days): 14 (6) Other stimulant dependence with withdrawal Current visit: Yes Status: Acute Plan: Monitor sleep, Monitor appetite Risks, benefits, side effects, alternatives discussed w/pt: Yes Patient agreeable to treatment: Yes Plans for Post Hospital Care: Transfer Other Estimated Length of Stay (Days): 14 (7) Hepatitis C Current visit: No Status: Chronic Plan: Encourage participation in unit milieu Risks, benefits, side effects, alternatives discussed w/pt: Yes Patient agreeable to treatment: Yes Plans for Post Hospital Care: Transfer Other Estimated Length of Stay (Days): 14 Qualifiers: Viral hepatitis chronicity: chronic Qualified Code(s): B18.2 - Chronic viral hepatitis C (8) Priapism Current visit: No Status: Resolved Plan: Close observation Risks, benefits, side effects, alternatives discussed w/pt: Yes Patient agreeable to treatment: Yes Plans for Post Hospital Care: Transfer Other Estimated Length of Stay (Days): 14
[2017-06-16] MEDS ORDERED: Ondansetron ODT 4 MG TAB.RAPDIS SL PRN (14:36)
[2017-06-16] MEDS: Baclofen 10 MG TABLET PO SCH ×2 (14:57→21:12)
[2017-06-16] MEDS: Gabapentin 300 MG CAPSULE PO SCH ×2 (14:57→21:12)
[2017-06-16] MEDS ORDERED: hydrOXYzine pamoate 25 MG CAPSULE PO PRN (15:24)
[2017-06-16] MEDS ORDERED: Pseudoephedrine Oral Soln 30 MG/5 ML UDC PO SCH (18:00)
[2017-06-16] MEDS ORDERED: OLANZapine 10 MG TAB.RAPDIS PO SCH (21:00)
[2017-06-16] MEDS: ARIPiprazole 5 MG TABLET PO SCH (21:11)
[2017-06-17] MEDS: Gabapentin 300 MG CAPSULE PO SCH ×2 (08:03→14:38)
[2017-06-17] MEDS: Baclofen 10 MG TABLET PO SCH ×2 (08:03→14:38)
--- NOTE | 2017-06-17 12:01 | Psychiatry Progress Note ---
Date of Encounter: 06/17/17 Time of Encounter: 12:00 Subjective Interval history: The patient has been on the unit. He has dissipated in some groups. The patient is interested in rehabilitation but has limited insurance coverage. Options include [place] and a rehabilitation in [facility]. The patient has told others that he would like to leave [facility] as he has many contacts here. The patient is tolerated the medicine Abilify but he continues to see images of his children he knows that they are not real but they are distressing to him. The patient has had myoclonic jerks and restlessness. He is been irritable. The patient is also heard voices. Nonetheless he has insight into these he would like to get better. The patient is tolerated the medication thus far. When we discussed this he was willing to take additional Vistaril 25 mg 3 times a day Review of Systems Psychiatric: Reports: depression, suicidal ideation, auditory hallucinations, visual hallucinations, difficulty concentrating, irritability Results - Vital Signs Vital Signs: Temp Pulse Resp BP Pulse Ox 98.2 F 94 16 124/91 99 06/17/17 08:32 06/17/17 08:32 06/17/17 08:32 06/17/17 08:32 06/15/17 10:38 Assessment and Plan (1) Suicidal ideations Current visit: Yes Status: Acute Plan: Continue hospitalization, Close observation, Encourage participation in unit milieu (2) Other bipolar disorder Current visit: Yes Status: Acute Plan: Suicide Precautions per unit protocol, Monitor sleep, Monitor appetite Risks, benefits, side effects, alternatives discussed w/pt: Yes Patient agreeable to treatment: Yes (3) Other stimulant dependence with stimulant-induced mood disorder Current visit: Yes Status: Acute Plan: Continue hospitalization, Group Therapy, Monitor appetite Risks, benefits, side effects, alternatives discussed w/pt: Yes Patient agreeable to treatment: Yes (4) 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 Current visit: Yes Status: Acute Plan: Continue hospitalization, Close observation, Monitor sleep Risks, benefits, side effects, alternatives discussed w/pt: Yes Patient agreeable to treatment: Yes (5) 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 Current visit: Yes Status: Acute Plan: Continue hospitalization, Encourage participation in unit milieu Risks, benefits, side effects, alternatives discussed w/pt: Yes Patient agreeable to treatment: Yes (6) Other stimulant dependence with withdrawal Current visit: Yes Status: Acute Plan: Continue hospitalization, Suicide Precautions per unit protocol Risks, benefits, side effects, alternatives discussed w/pt: Yes Patient agreeable to treatment: Yes (7) Hepatitis C Current visit: No Status: Chronic Risks, benefits, side effects, alternatives discussed w/pt: Yes Patient agreeable to treatment: Yes Qualifiers: Viral hepatitis chronicity: chronic Qualified Code(s): B18.2 - Chronic viral hepatitis C (8) Priapism Current visit: No Status: Resolved Plan: Continue hospitalization Risks, benefits, side effects, alternatives discussed w/pt: Yes Patient agreeable to treatment: Yes Consult Discharge Plan - Plan Referrals: NONE,PCP [Primary Care Provider] - Psychiatry Exam - Constitutional Vitals: Temp Pulse Resp BP Pulse Ox 98.2 F 94 16 124/91 99 06/17/17 08:32 06/17/17 08:32 06/17/17 08:32 06/17/17 08:32 06/15/17 10:38 General appearance: age & developmentally appropriate, thin - Musculoskeletal Gait: brisk Station: shaky Strength & Tone: normal for patient - Psychiatric Patient Orientation: Yes Person, Yes Time, Yes Place, Yes Circumstance Level of alertness: Alert Behavior: anxious, impulsive Psychomotor activity: Increased Eye Contact: Maintains Eye Contact Affect description: full range Speech Volume: Normal Speech pattern: pressured Language & Vocabulary: consistent with education, high school level Thought Process: Intact Thought Content: Yes Suicidal ideation Perceptual Disturbances: Yes Auditory hallucinations, Yes Visual hallucinations Attention Span Ability: Capable of Sustained Attention Memory Description: Grossly Intact Patient Reliability: Questionable Historian Fund of knowledge: Yes average Intelligence Estimate: Average Judgment: Limited Insight: Minimal
[2017-06-17] MEDS: hydrOXYzine pamoate 25 MG CAPSULE PO SCH (14:38)
[2017-06-18] MEDS: Gabapentin 300 MG CAPSULE PO SCH ×4 (00:50→21:25)
[2017-06-18] MEDS: hydrOXYzine pamoate 25 MG CAPSULE PO SCH ×4 (00:50→21:25)
[2017-06-18] MEDS: Baclofen 10 MG TABLET PO SCH ×4 (00:50→21:25)
[2017-06-18] MEDS: ARIPiprazole 5 MG TABLET PO SCH ×2 (00:50→21:25)
[2017-06-18] MEDS: ARIPiprazole 10 MG TABLET PO SCH (08:35)
--- NOTE | 2017-06-18 09:17 | Psychiatry Progress Note ---
Date of Encounter: 06/18/17 Time of Encounter: 09:15 Subjective Interval history: The patient and I spoke. He has been on a 72 hour hold which will today. The patient has been irritable. He has not wanted to speak in groups. He is refused some activities. Currently the patient is resting in his room and does not wish to get out to socialize. I spoke to him about the need to continue hospitalization. He agreed that continuing is a voluntary patient will be helpful. He agreed that his rehabilitation from drugs and alcohol would be helpful for his mood. He agreed that his medicines were helpful although they did not alleviate all mood symptoms. The patient's previously stated that he had thought about suicide while on the psychiatric unit but did not name a specific plan did not take any specific actions therefore continued hospitalization as a voluntary patient was recommended. The patient agreed to sign voluntary form and participate in milieu therapy Review of Systems Psychiatric: Reports: depression, suicidal ideation, auditory hallucinations, visual hallucinations, difficulty concentrating, irritability Results - Vital Signs Vital Signs: Temp Pulse Resp BP Pulse Ox 98.2 F 127 16 142/91 99 06/17/17 21:00 06/17/17 21:00 06/17/17 21:00 06/17/17 21:00 06/15/17 10:38 Assessment and Plan (1) Suicidal ideations Current visit: Yes Status: Acute Plan: Continue hospitalization, Close observation, Suicide Precautions per unit protocol, Encourage participation in unit milieu, Secure weapons Risks, benefits, side effects, alternatives discussed w/pt: Yes Patient agreeable to treatment: Yes (2) Other bipolar disorder Current visit: Yes Status: Acute Plan: Continue hospitalization, Monitor sleep, Monitor appetite Risks, benefits, side effects, alternatives discussed w/pt: Yes Patient agreeable to treatment: Yes (3) Other stimulant dependence with stimulant-induced mood disorder Current visit: Yes Status: Acute Plan: Continue hospitalization, Group Therapy, Monitor appetite Risks, benefits, side effects, alternatives discussed w/pt: Yes Patient agreeable to treatment: Yes (4) 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 Current visit: Yes Status: Acute Plan: Continue hospitalization, Close observation Risks, benefits, side effects, alternatives discussed w/pt: Yes Patient agreeable to treatment: Yes (5) 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 Current visit: Yes Status: Acute Plan: Continue hospitalization, Close observation, Monitor appetite Risks, benefits, side effects, alternatives discussed w/pt: Yes Patient agreeable to treatment: Yes (6) Other stimulant dependence with withdrawal Current visit: Yes Status: Acute Plan: Continue hospitalization, Close observation, Monitor sleep Risks, benefits, side effects, alternatives discussed w/pt: Yes Patient agreeable to treatment: Yes (7) Hepatitis C Current visit: No Status: Chronic Plan: Monitor appetite Risks, benefits, side effects, alternatives discussed w /pt: Yes Patient agreeable to treatment: Yes Qualifiers: Viral hepatitis chronicity: chronic Hepatic coma status: without hepatic coma Qualified Code(s): B18.2 - Chronic viral hepatitis C (8) Priapism Current visit: No Status: Chronic Plan: Monitor appetite Risks, benefits, side effects, alternatives discussed w /pt: Yes Patient agreeable to treatment: Yes Consult Discharge Plan - Plan Referrals: NONE,PCP [Primary Care Provider] - Psychiatry Exam - Constitutional Vitals: Temp Pulse Resp BP Pulse Ox 98.2 F 127 16 142/91 99 06/17/17 21:00 06/17/17 21:00 06/17/17 21:00 06/17/17 21:00 06/15/17 10:38 General appearance: age & developmentally appropriate - Musculoskeletal Station: relaxed Strength & Tone: normal for patient - Psychiatric Patient Orientation: Yes Person, Yes Time, Yes Place, Yes Circumstance Level of alertness: Sedated Behavior: impulsive Psychomotor activity: Slowed Eye Contact: Minimal Contact Mood Description: Irritable Affect description: congruent with mood Speech Volume: Soft/Quiet Speech pattern: normal rate Language & Vocabulary: consistent with education Thought Process: Evasive Thought Content: Yes Preoccupation Perceptual Disturbances: Yes Auditory hallucinations, Yes Visual hallucinations Attention Span Ability: Capable of Focused Attention Memory Description: Grossly Intact Patient Reliability: Questionable Historian Fund of knowledge: Yes average Intelligence Estimate: Average Judgment: Limited Insight: Minimal
[2017-06-19] MEDS: Gabapentin 300 MG CAPSULE PO SCH ×2 (08:59→15:39)
[2017-06-19] MEDS: Baclofen 10 MG TABLET PO SCH ×3 (08:59→22:02)
[2017-06-19] MEDS: ARIPiprazole 10 MG TABLET PO SCH (08:59)
[2017-06-19] MEDS: hydrOXYzine pamoate 25 MG CAPSULE PO SCH ×3 (09:00→22:02)
--- NOTE | 2017-06-19 15:19 | Psychiatry Progress Note ---
Date of Encounter: 06/19/17 Time of Encounter: 12:45 Subjective Interval history: The patient has been less motivated. He has avoided groups he has been isolative was seen today in his room. The patient reports that he still has irritability. The medicines help take the edge especially gabapentin according however he has to enter into a residential treatment where some of these medicines will not be allowed. Specifically they are gabapentin, baclofen, Sudafed,. Patient has reported no priapism he has continued to have visual hallucinations but they are less frequent he is on Abilify he is tolerating the current dose is willing to let it continue to work the patient has suicidal ideation without specific plan is able to let us know on the unit feels as if he is going to attempt suicide Review of Systems Psychiatric: Reports: depression, suicidal ideation, auditory hallucinations, visual hallucinations, difficulty concentrating, irritability Results - Vital Signs Vital Signs: Temp Pulse Resp BP Pulse Ox 98.8 F 119 18 136/99 99 06/19/17 09:00 06/19/17 09:00 06/19/17 09:00 06/19/17 09:00 06/15/17 10:38 Assessment and Plan (1) Suicidal ideations Current visit: Yes Status: Acute Plan: Continue hospitalization, Suicide Precautions per unit protocol, Encourage participation in unit milieu Risks, benefits, side effects, alternatives discussed w/pt: Yes Patient agreeable to treatment: Yes (2) Other bipolar disorder Current visit: Yes Status: Acute Plan: Continue hospitalization, Close observation, Suicide Precautions per unit protocol Risks, benefits, side effects, alternatives discussed w/pt: Yes Patient agreeable to treatment: Yes (3) Other stimulant dependence with stimulant-induced mood disorder Current visit: Yes Status: Acute Plan: Continue hospitalization, Close observation Risks, benefits, side effects, alternatives discussed w/pt: Yes Patient agreeable to treatment: Yes (4) 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 Current visit: Yes Status: Acute Plan: Continue hospitalization, Close observation Risks, benefits, side effects, alternatives discussed w/pt: Yes Patient agreeable to treatment: Yes (5) 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 Current visit: Yes Status: Acute Plan: Suicide Precautions per unit protocol, Secure weapons Risks, benefits, side effects, alternatives discussed w/pt: Yes Patient agreeable to treatment : Yes (6) Other stimulant dependence with withdrawal Current visit: Yes Status: Acute Plan: Monitor sleep, Monitor appetite Risks, benefits, side effects, alternatives discussed w/pt: Yes Patient agreeable to treatment: Yes (7) Hepatitis C Current visit: No Status: Chronic Plan: Continue hospitalization Risks, benefits, side effects, alternatives discussed w/pt: Yes Patient agreeable to treatment: Yes Qualifiers: Viral hepatitis chronicity: chronic Hepatic coma status: without hepatic coma Qualified Code(s): B18.2 - Chronic viral hepatitis C (8) Priapism Current visit: No Status: Chronic Plan: Close observation, Encourage participation in unit milieu Risks, benefits, side effects, alternatives discussed w/pt: Yes Patient agreeable to treatment: Yes Consult Discharge Plan - Plan Referrals: NONE,PCP [Primary Care Provider] - Psychiatry Exam - Constitutional Vitals: Temp Pulse Resp BP Pulse Ox 98.8 F 119 18 136/99 99 06/19/17 09:00 06/19/17 09:00 06/19/17 09:00 06/19/17 09:00 06/15/17 10:38 General appearance: age & developmentally appropriate, well-groomed, well- nourished, thin - Musculoskeletal Gait: normal Station: relaxed Strength & Tone: normal for patient - Psychiatric Patient Orientation: Yes Person, Yes Time, Yes Place Level of alertness: Alert Behavior: calm, uncooperative, guarded, withdrawn Psychomotor activity: Normal Mood Description: Euthymic/stable Affect description: congruent with mood, full range Speech Volume: Normal Speech pattern: normal rate, normal rhythm, normal tone, fluent, spontaneous Language & Vocabulary: consistent with education Thought Process: Linear, Goal Oriented Thought Content: Yes Suicidal ideation, No Homicidal ideation, No Overt delusions Perceptual Disturbances: No Auditory hallucinations, No Visual hallucinations Attention Span Ability: Capable of Focused Attention Memory Description: Grossly Intact Patient Reliability: Reliable Historian Fund of knowledge: Yes abstraction ability, Yes aware of current events Intelligence Estimate: Average Judgment: Limited Insight: Minimal
[2017-06-19] MEDS: ARIPiprazole 5 MG TABLET PO SCH (22:02)
[2017-06-19] MEDS: Gabapentin 400 MG CAPSULE PO SCH (22:02)
[2017-06-20] MEDS: Gabapentin 400 MG CAPSULE PO SCH ×2 (09:33→14:41)
[2017-06-20] MEDS: ARIPiprazole 10 MG TABLET PO SCH (09:33)
[2017-06-20] MEDS: hydrOXYzine pamoate 25 MG CAPSULE PO SCH ×3 (09:34→20:59)
[2017-06-20] MEDS: Baclofen 10 MG TABLET PO SCH ×3 (09:34→20:59)
--- NOTE | 2017-06-20 16:22 | Psychiatry Progress Note ---
Date of Encounter: 06/20/17 Time of Encounter: 16:30 Subjective Interval history: The patient remains isolative. Efforts were made to try and call for rehabilitation but they have not called back. The patient has a history of hepatitis C and is undergoing a taper of his medicines. Review of Systems Psychiatric: Reports: depression, suicidal ideation, auditory hallucinations, visual hallucinations, difficulty concentrating, irritability Results - Vital Signs Vital Signs: Temp Pulse Resp BP Pulse Ox 98.2 F 94 16 131/94 99 06/20/17 09:15 06/20/17 09:15 06/20/17 09:15 06/20/17 09:15 06/15/17 10:38 Assessment and Plan (1) Suicidal ideations Current visit: Yes Status: Acute Risks, benefits, side effects, alternatives discussed w/pt: Yes Patient agreeable to treatment: Yes (2) Other bipolar disorder Current visit: Yes Status: Acute Risks, benefits, side effects, alternatives discussed w/pt: Yes Patient agreeable to treatment: Yes (3) Other stimulant dependence with stimulant-induced mood disorder Current visit: Yes Status: Acute Risks, benefits, side effects, alternatives discussed w/pt: Yes Patient agreeable to treatment: Yes (4) 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 Current visit: Yes Status: Acute Risks, benefits, side effects, alternatives discussed w/pt: Yes Patient agreeable to treatment: Yes (5) 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 Current visit: Yes Status: Acute Risks, benefits, side effects, alternatives discussed w/pt: Yes Patient agreeable to treatment: Yes (6) Other stimulant dependence with withdrawal Current visit: Yes Status: Acute Risks, benefits, side effects, alternatives discussed w/pt: Yes Patient agreeable to treatment: Yes (7) Hepatitis C Current visit: No Status: Chronic Risks, benefits, side effects, alternatives discussed w/pt: Yes Patient agreeable to treatment: Yes Qualifiers: Viral hepatitis chronicity: chronic Hepatic coma status: without hepatic coma Qualified Code(s): B18.2 - Chronic viral hepatitis C (8) Priapism Current visit: No Status: Chronic Risks, benefits, side effects, alternatives discussed w/pt: Yes Patient agreeable to treatment: Yes Consult Discharge Plan - Plan Referrals: NONE,PCP [Primary Care Provider] - Psychiatry Exam - Constitutional Vitals: Temp Pulse Resp BP Pulse Ox 98.2 F 94 16 131/94 99 06/20/17 09:15 06/20/17 09:15 06/20/17 09:15 06/20/17 09:15 06/15/17 10:38 General appearance: age & developmentally appropriate, well-groomed, well- nourished - Musculoskeletal Gait: slow Station: stooped Strength & Tone: normal for patient - Psychiatric Patient Orientation: Yes Person, Yes Time, Yes Place Level of alertness: Alert Behavior: withdrawn Psychomotor activity: Slowed Mood Description: Depressed, Irritable Affect description: congruent with mood, blunted Speech Volume: Soft/Quiet Speech pattern: normal rate Language & Vocabulary: consistent with education Thought Process: Evasive Thought Content: Yes Suicidal ideation Perceptual Disturbances: Yes Auditory hallucinations, Yes Visual hallucinations Attention Span Ability: Capable of Focused Attention Memory Description: Grossly Intact Patient Reliability: Questionable Historian Intelligence Estimate: Average Judgment: Fair Insight: Partial
[2017-06-20] MEDS: Gabapentin 300 MG CAPSULE PO SCH ×2 (17:48→20:59)
[2017-06-20] MEDS: ARIPiprazole 5 MG TABLET PO SCH (20:58)
[2017-06-21] MEDS: Baclofen 10 MG TABLET PO SCH (09:00)
[2017-06-21] MEDS: ARIPiprazole 10 MG TABLET PO SCH (09:00)
[2017-06-21] MEDS: Gabapentin 300 MG CAPSULE PO SCH (09:01)
[2017-06-21] MEDS: hydrOXYzine pamoate 25 MG CAPSULE PO SCH (09:01)
[2017-06-21 09:19] VITALS: BP 149/89
[2017-06-21 09:19] LABS: Albumin 3.9 g/dL (3.5-5.7); Albumin/Globulin Ratio 1.2 (1.1-2.2); Bilirubin,Direct 0.1 mg/dL (0.0-0.2); Bilirubin,Indirect 0.3 mg/dL (0.0-1.2); Bilirubin,Total 0.4 mg/dL (0.3-1.0); Globulin 3.2 g/dL (2.4-3.5); Total Protein 7.1 g/dL (6.4-8.9)
--- NOTE | 2017-06-21 10:25 | Event Note ---
Date of Encounter: 06/21/17 Time of Encounter: 10:23 Discussed with Nurse on 1A. Consult for priapism. Advised to call Urology. Will sign off.
--- NOTE | 2017-06-21 11:43 | Urology - Consult Note ---
Date of Encounter: 06/21/17 Time of Encounter: 11:41 - Assessment and Plan (1) Priapism Current Visit: No Status: Chronic Assessment and plan: I discussed with the patient at length regarding treatment options for his recurrent stuttering priapism. Patient has failed irrigation and phenylephrine in the past. I feel the best course of action would be to take the patient to the operating room and irrigate the patient's penis as well as dilate the corpora. I did inform the patient that this could potentially leave him impotent. He does understand this risk and agreed to be scheduled for the above procedure. The informed consent was signed by the patient and witnessed appropriately. All other risks, benefits, alternatives to procedure were discussed with the patient and witnessed by multiple nursing staff on the floor. Patient states that he will keep his follow-up appointments with [facility] for possible implantable penile prosthesis surgery. Patient has been up and a rectal for greater than 12 hours and Aleve this constitutes an emergency surgery. Urology CN:HPI Consult date: 06/21/17 Reason for consult Urology: Other (priapism) Requesting physician: Elizabeth Cormier History of present illness: Paco is a 32-year-old male with a history of recurrent stuttering priapism. Patient has had greater than 20+ episodes of recurrent priapism over the past few years. Patient has been evaluated multiple times by providers in our group. He has failed to be compliant as an outpatient. Patient was most recently sent to [facility] for similar problem. He was treated in the emergency department then scheduled for penile prosthesis placement in the operating room the patient failed to keep that visit. Patient now presents back to the psych [facility] secondary to suicidal ideation, substance abuse and homelessness. Patient has had a persistent erection since last night at approximately 10 PM. Patient admits to severe tenderness 10 pain in his penis. No voiding problems at this time. Past Med Surg Social Fam HX - Past Medical History Medical history: hepatitis, hypertension, other Psychiatric history: previous psychiatric hospitalization - Past Surgical History Surgical History: cholecystectomy, other - Social History Smoking Status: Current every day smoker Smokeless Tobacco Status: No Alcohol use: none, recent Drug use: opiates, methamphetamine, prescription drug abuse, other - Family History Mother Living Status: Still Living Hx Family Cardiac Disorders: Yes Grandfather Hx Family Cardiac Disorders: Yes ([place] [place]) Medications and Allergies No Known Home Drugs 06/15/17 [History] 3 Allergy/AdvReac Type Severity Reaction Status Date / Time Bee Pollen Allergy Anaphylaxis Verified 06/15/17 14:27 Review of Systems - Constitutional no chills, no fever(s) - EENT Nose, mouth and throat: no dizziness, no sore throat - Cardiovascular no chest pain - Respiratory no cough - Gastrointestinal no abdominal pain - Genitourinary as per HPI - Musculoskeletal no back pain, no muscle weakness - Integumentary no erythema Exam Initial Vital Signs Temp Pulse Resp BP Pulse Ox 97.8 F 93 18 151/102 99 06/15/17 10:38 06/15/17 10:38 06/15/17 10:38 06/15/17 10:38 06/15/17 10:38 General/Neuological: alert and oriented x 3 Eyes: normal pupils, non-icteric Neck: no lymphadenopathy noted, supple to touch Cardiovascular: RRR, no murmurs Respiratory: normal respiratory effort, clear bilaterally ABD: soft, nontender, no masses palpated, good bowel sounds Back: no pain on percussion bilaterally : Firm erect phallus with normal scrotum and testicles bilaterally. Perineum normal. Skin: no rashes noted Musculoskeletal: normal gait, FROMx4 Urology Results - Labs 06/15/17 10:52 06/15/17 10:52 Abnormal lab results MPV 8.9 fL (9.4-12.4) L 06/15/17 10:52 Sodium 135 mEq/L (136-145) L 06/15/17 10:52 Carbon Dioxide 30 mEq/L (23-29) H 06/15/17 10:52 Ur Specific Golden 1.026 (1.010-1.025) H 06/15/17 12:46 Salicylates < 5.0 mg/dL (15.0-30.0) L 06/15/17 10:52 Acetaminophen < 1.0 mcg/mL (10-30) L 06/15/17 10:52 Ur Amphetamines Screen Positive ng/mL (Fspfrd=4327) H 06/15/17 12:46 U Marijuana (THC) Screen Positive ng/mL (Cutoff = 50) H 06/15/17 12:46 Diabetes panel 06/21/17 Range/Units 08:13 AST 18 (13-39) Units/L ALT 19 (7-52) Units/L Alkaline Phosphatase 65 (34-104) Units/L Albumin 3.9 (3.5-5.7) g/dL Calcium panel 06/21/17 Range/Units 08:13 Albumin 3.9 (3.5-5.7) g/dL Adrenal panel 06/21/17 Range/Units 08:13 Total Bilirubin 0.4 (0.3-1.0) mg/dL AST 18 (13-39) Units/L ALT 19 (7-52) Units/L Alkaline Phosphatase 65 (34-104) Units/L Albumin 3.9 (3.5-5.7) g/dL All other labs normal. Consult Discharge Plan - Plan Referrals: NONE,PCP [Primary Care Provider] -
--- NOTE | 2017-06-21 12:06 | Anesthesia Evaluation PreOp ---
Date of Encounter: 06/21/17 Time of Encounter: 12:04 - Past History Planned Operation: I & D Priapism Cardiac History: Denies any Significant Hx Pulmonary History: Smoker (23 years) [employer] History: Denies Any Significant HX Other Medical History: Hepatic (hepatitis C), Other (anxiety, bipolar) Anesthesia History: No Prior Anesthetic Complications, Past Anesthesia Alcohol Use: none, recent Drug use: opiates, methamphetamine, prescription drug abuse, other Medications and Allergies No Known Home Drugs 06/15/17 [History] 3 Allergy/AdvReac Type Severity Reaction Status Date / Time Bee Pollen Allergy Anaphylaxis Verified 06/15/17 14:27 - Meds/Allergy Pre-op Review Medications Reviewed: Yes Allergies Reviewed: Yes Beta Blockers on Current Med List: No Anesthesia Results - Labs 06/15/17 10:52 06/15/17 10:52 Anesthesia Exam Vital Signs/O2 Sat, Most Current Temp Pulse Resp BP Pulse Ox 98.5 F 94 20 149/89 99 06/21/17 09:00 06/21/17 09:00 06/21/17 09:00 06/21/17 09:00 06/15/17 10:38 Height: 6'2''/1.88 m Weight: 170 lbs/77.1 kg NPO (# of Hours): 8 Pain Scale: 0 Pain Scale Used: Numeric (1 - 10) - HEENT Pupil (Motor): EOMI Mallampati: II Teeth: Poor dentition Oral Opening: Greater than 3 - [employer] LOC: Oriented [employer] Motor: Normal RUE, Normal LUE, Normal RLE, Normal LLE, Normal Face [employer] Sensory: Normal: RUE, LUE, Face, Deficit: RLE, LLE - Cardiac Rhythm: Regular Murmur: None - Pulmonary Breath Sounds: bilateral Clear Respiratory Effort: Symmetrical Anesthesia Assess/Plan ASA Score: 2, E Modified Hamburg Scale for Level of Consciousness: Cooperative, oriented, and tranquil Anesthetic Plan: General Monitoring Plan: Standard Monitors Recovery Plan: PACU
[2017-06-21] MEDS ORDERED: *HR* FentaNYL (PF) 100 MCG/2 ML VIAL ONE (12:16)
[2017-06-21] MEDS ORDERED: *HR* Propofol 200 MG/20 ML VIAL IVP ONE (12:16)
[2017-06-21] MEDS ORDERED: *HR* Midazolam HCl 2 MG/2 ML VIAL ONE (12:16)
[2017-06-21] MEDS ORDERED: *HR* Succinylcholine 200 MG/10 ML VIAL IVP ONE (12:18)
[2017-06-21] MEDS ORDERED: Lidocaine -MPF 2% 2 ML VIAL ONE (12:18)
[2017-06-21] MEDS ORDERED: MORPHINE SUL Oral CONC 10 MG/0.5 ML ORAL.SYG SL PRN (12:33)
[2017-06-21] MEDS ORDERED: Albuterol 2.5 MG/3 ML NEBULIZER IH ONE (12:35)
[2017-06-21] MEDS ORDERED: Dexamethasone 4 MG/ML VIAL ONE (13:23)
[2017-06-21] MEDS ORDERED: Ondansetron 4 MG/2 ML VIAL ONE (13:23)
--- NOTE | 2017-06-21 18:06 | Psychiatry Progress Note ---
Date of Encounter: 06/21/17 Time of Encounter: 13:00 Subjective Interval history: Pateint transferred to Surgery after evaluation for priapism unresolving to medication management. Review of Systems Constitutional: Denies: fever, chills, weakness, weight change Eyes: Denies: eye pain, vision change Ears, Nose, Throat: Denies: ear pain, throat pain, dental pain, hearing loss, congestion Cardiovascular: Denies: chest pain, palpitations, dyspnea on exertion Respiratory: Denies: cough, dyspnea, wheezes Gastrointestinal: Denies: abdominal pain, nausea, vomiting, diarrhea, constipation Musculoskeletal: Denies: joint swelling, joint pain Neurological: Denies: headache, weakness, numbness, memory loss Psychiatric: Reports: depression, suicidal ideation, auditory hallucinations, visual hallucinations, difficulty concentrating, irritability Results - Vital Signs Vital Signs: Temp Pulse Resp BP Pulse Ox 98.5 F 94 20 149/89 99 06/21/17 09:00 06/21/17 09:00 06/21/17 09:00 06/21/17 09:00 06/15/17 10:38 - Labs Labs: Laboratory Results - last 24 hr 06/21/17 08:13 Total Bilirubin 0.4 Direct Bilirubin 0.1 Indirect Bilirubin 0.3 AST 18 ALT 19 Alkaline Phosphatase 65 Serum Total Protein 7.1 Albumin 3.9 Globulin 3.2 Albumin/Globulin Ratio 1.2 Assessment and Plan (1) Priapism Status: Acute Risks, benefits, side effects, alternatives discussed w/pt: Yes Patient agreeable to treatment: Yes (2) Depressive disorder Status: Acute Consult Discharge Plan - Plan Instructions: Bipolar Disorder (DC) Referrals: NONE,PCP [Primary Care Provider] - (1A to set up follow up when patient returns ) Psychiatry Exam - Constitutional Vitals: Temp Pulse Resp BP Pulse Ox 98.5 F 94 20 149/89 99 06/21/17 09:00 06/21/17 09:00 06/21/17 09:00 06/21/17 09:00 06/15/17 10:38 General appearance: age & developmentally appropriate - Musculoskeletal Gait: normal - Psychiatric Patient Orientation: Yes Person, Yes Time Level of alertness: Alert Behavior: calm, cooperative Psychomotor activity: Abnormal movements Mood Description: Depressed Affect description: flat Speech Volume: Normal Speech pattern: normal rate Language & Vocabulary: consistent with education Thought Process: Linear, Goal Oriented Thought Content: No Suicidal ideation, No Homicidal ideation, No Overt delusions Perceptual Disturbances: No Auditory hallucinations, No Visual hallucinations Attention Span Ability: Capable of Focused Attention Memory Description: Grossly Intact Patient Reliability: Reliable Historian Intelligence Estimate: Average Judgment: Limited Insight: Partial
--- NOTE | 2017-07-27 22:46 | Discharge Summary ---
Date of Encounter: 06/21/17 Time of Encounter: 09:00 Diagnosis - Discharge Diagnosis (1) Priapism Status: Resolved (2) Depressive disorder Status: Acute Medications - Discharge Medications Nicotine Patch [Nicoderm] 21 mg TD DAILY patch.td24 06/22/17 [Rx] ARIPiprazole [Abilify] 10 mg PO DAILY #30 tablet 06/25/17 [Rx] 3 Allergy/AdvReac Type Severity Reaction Status Date / Time Bee Pollen Allergy Anaphylaxis Verified 06/15/17 14:27 Results Procedures and tests throughout hospitalization: Completed Lab Orders Category Date Time Status liver [Hepatic Panel] AM 0400 Lab 06/21/17 08:13 Completed Provider Date of admission: 06/15/17 14:53 Primary care physician: PCP NONE Consults: 06/21/17 08:20 Consult to Hospitalist [CONS] Stat Consulting Provider: Hospitalist Femi Reason for Consult: Priaprism Time Notified: 08:29 Call Completed: Yes Consult to Urology [CONS] Stat Consulting Provider: Urology Gabi Reason for Consult: Priaprism Call Completed: No Psychiatry Exam - Constitutional Vitals: Temp Pulse Resp BP Pulse Ox 98.5 F 94 20 149/89 99 06/21/17 09:00 06/21/17 09:00 06/21/17 09:00 06/21/17 09:00 06/15/17 10:38 General appearance: age & developmentally appropriate - Musculoskeletal Gait: normal Strength & Tone: normal for patient - Psychiatric Patient Orientation: Yes Time, Yes Place Level of alertness: Alert Behavior: cooperative Psychomotor activity: Slowed Eye Contact: Maintains Eye Contact Mood Description: Depressed Affect description: tearful Speech Volume: Soft/Quiet Speech pattern: normal rate Language & Vocabulary: consistent with education Thought Process: Logical, Goal Oriented Thought Content: Yes Intact Perceptual Disturbances: No Auditory hallucinations, No Visual hallucinations Attention Span Ability: Unable to Focus Memory Description: Grossly Intact Patient Reliability: Reliable Historian Fund of knowledge: Yes average Intelligence Estimate: Average Judgment: Limited Insight: Minimal Hospital Course Hospital course: Mr. Sarabia is a 32 year old male, single, homeless, unemployed, with a h/o bipolar d/o and anxiety, h/o multiple inpatient hospitalizations, h/o polysubstance use disorder ,medical hx signficant for HTN, priapism, HCV, admitted to the hospital on account of worsening depression and suicidal ideation with a plan and intent. Patient is being discharged to the surgical unit for an emergency surgery on account of persistent priapism non responsive to medication management after being seen and evaluated by urologist. - Time Spent with Patient Total time spent providing and/or coordinating discharge services: Assessment and Plan - Follow up Plan Follow up with: NONE,PCP [Primary Care Provider] - (1A to set up follow up when patient returns ) Disposition: Transfer Short-Term Hosp Quality - Multiple Antipsychotics Patient discharged on 2 or more antipsychotic medications: No
== END 2017-06-21 12:40 | disposition short-term general hospital (02) | DRG 754 ==
LOC: EMEROO 10:35 → 1ANU 14:53 → SUATTDRO 14:53 → 1ANU 15:05
PROVIDERS: ADMIT Psychiatry & Neurology Psychiatry; ATTEND Psychiatry & Neurology Psychiatry

== ENCOUNTER 2017-06-22 15:38 | Inpatient (IN) ==
[~2017-06-22 15:38] MED LIST: Albuterol 2.5 MG/3 ML NEBULIZER ONE
[2017-06-22] MEDS ORDERED: Ibuprofen 400 MG TABLET PO PRN (16:54)
[2017-06-22] MEDS ORDERED: MOM Conc 10 ML UD.LIQ PO PRN (16:54)
[2017-06-22] MEDS ORDERED: *HR* LORazepam 1 MG TABLET PO PRN (16:54)
[2017-06-22] MEDS ORDERED: *HR* LORazepam 2 MG/ML VIAL IM PRN (16:54)
[2017-06-22] MEDS ORDERED: hydrOXYzine pamoate 25 MG CAPSULE PO PRN (16:54)
[2017-06-22] MEDS ORDERED: Haloperidol Lactate 5 MG/ML VIAL IM PRN (16:54)
[2017-06-22] MEDS ORDERED: Mag Hydrox/Al Hydrox/Simeth 30 ML UDC PO PRN (16:54)
[2017-06-22] MEDS ORDERED: *HR* HYDROcodone/Acet 5/325 mg TABLET PO PRN (16:57)
[2017-06-22] MEDS: *HR* HYDROcodone/Acet 5/325 mg TABLET PO PRN (17:35)
[2017-06-22] MEDS: *HR* OxyCODONE Immed Rel 5 MG TABLET PO PRN (22:05)
[2017-06-22] MEDS ORDERED: Ondansetron ODT 4 MG TAB.RAPDIS SL PRN (23:19)
[2017-06-23] MEDS: *HR* OxyCODONE Immed Rel 5 MG TABLET PO PRN ×3 (06:45→19:53)
[2017-06-23] MEDS: ARIPiprazole 10 MG TABLET PO SCH (08:22)
[2017-06-23] MEDS: Gabapentin 300 MG CAPSULE PO SCH ×2 (08:23→14:38)
[2017-06-23] MEDS: *HR* HYDROcodone/Acet 5/325 mg TABLET PO PRN (08:31)
[2017-06-23] MEDS: Nicotine 21 MG PATCH.TD24 TD SCH (08:31)
[2017-06-23] MEDS ORDERED: Baclofen 10 MG TABLET PO SCH (09:00)
--- NOTE | 2017-06-23 15:08 | Psychiatry History & Physical ---
Date of Encounter: 06/23/17 Time of Encounter: 14:45 History of Present Illness Patient Stated Chief Complaint: i want to go from here to rehab. Medicare Admission Attestation: For traditional Medicare patients the provided hospital inpatient services are reasonable and necessary and in the case of services not specified as inpatient -only under 42 CFR 419.22 (n), that they are appropriately provided as inpatient services in accordance 42 CFR 412.3. For Critical Access Hospital the patient may reasonably be expected to be discharged or transferred to a hospital within 96 hours after admission to the Critical Access Hospital. Admitted From: Emergency Dept Plans for Post Hospital Care: Transfer Inp Rehab Fac History of Present Illness: Mr. Sarabia is a 32 year old male with h/o Bipolar , PTSD ,ADHD . READMIT FROM MEDICAL FLOOR. He was admitted to [facility] for depression and suicidal ideation , psychosis, agitated and irritated and using street drugs and no medications. he was then transfered to medical floor as had priapism and h/o priapism for 2.5 yrs after seroquel and took long to go to ER , since then no treatment states when it happens he knows what to do. He had surgery done and had shunt put it and given pain medications and sudafed ( pseudoepedrine) he has to get prosthesis as per recomendation. he wants to first do the inpatient rehab . he has been on multiple medication in past and long psych and substance abuse history . he was started on abilify and gabapentin , while inpatient here , and feels medicine helping, he is still having dreams about meth and having cravings but is motivated and wants to do rehab. inpATIENT. depression is better, denies psychosis and denies paranoia, no suicidal or homicidal thoughts. EATING BETTER, IS SOCIALIZING AND ATTENDING GROUPS. pLAN TO GIVE 10 MG ABILIFY , DECREASE GABAPENTIN TO 100 MG TID WILL NEED T DC IF GOING TO REHAB. BACLOFEN DC FOR REHAB. REGARDINGSUDAFED WILL CHANGE TO ADVIL ALLERGY and sinus as that has psuedo epehdrine and patient can afford it and can take to rehab. pain medications will be dc , given prn . start discharge planning. Past Med Surg Social Fam HX - Past Medical History Medical history: hepatitis, hypertension, other - Past Psychiatric History Psychiatric history: Reports: bipolar, depression, PTSD, prior suicide attempt, previous psychiatric hospitalization Family psychiatric history: Yes Family History of Suicide: Completed Family Suicide History Details: father and uncle commited suicide, dad drink himself to . uncle od on heroin. - Past Surgical History Surgical History: cholecystectomy, other - Social History Smoking Status: Current every day smoker Smokeless Tobacco Status: No Alcohol use: none, recent Drug use: opiates, methamphetamine, prescription drug abuse, other Occupational status: unemployed Current living situation: Homeless Activity Level: Independent ambulation Recent Out of Country Travel Within the Last 8 Weeks: No Exposure or Possible Exposure to Illness During Travel: No - Family History Mother History Unknown: Yes Living Status: Still Living Hx Family Cardiac Disorders: Yes Grandfather Hx Family Cardiac Disorders: Yes ([place]) Medications & Allergies HYDROcodone/Acet 5/325 mg [[place] 5-325 mg] 1 tab PO Q6HR PRN 5 Days #20 tablet 06/22/17 [Rx] Nicotine Patch [Nicoderm] 21 mg TD DAILY patch.td24 06/22/17 [Rx] 3 Allergy/AdvReac Type Severity Reaction Status Date / Time Bee Pollen Allergy Anaphylaxis Verified 06/15/17 14:27 Review of Systems Psychiatric: Reports: depression, anxiety, mood swings Exam - HEENT Head exam IM: Present: atraumatic, normal inspection, normocephalic Eye exam IM: Present: normal appearance ENT exam IM: Present: normal exam - Neurological Neurological exam: Present: CN II-XII intact, alert - Respiratory Respiratory exam IM: Present: CTAB - GI/Abdominal GI/Abdominal exam IM: Present: normal bowel sounds, soft. Absent: tenderness - Extremities Extremities exam IM: Present: full ROM - Skin Skin exam IM: Present: warm - Constitutional Vitals: Temp Pulse Resp BP 98 F 84 16 123/70 06/23/17 09:00 06/23/17 09:00 06/23/17 09:00 06/23/17 09:00 General appearance: age & developmentally appropriate - Musculoskeletal Gait: normal Station: relaxed Strength & Tone: normal for patient - Psychiatric Patient Orientation: Yes Person, Yes Time, Yes Place Level of alertness: Alert Behavior: calm, cooperative Psychomotor activity: Normal Eye Contact: Maintains Eye Contact Mood Description: Anxious Affect description: congruent with mood Speech Volume: Normal Speech pattern: normal rate, normal rhythm, normal tone Language & Vocabulary: consistent with education Thought Process: Intact Thought Content: Yes Intact Attention Span Ability: Capable of Focused Attention Memory Description: Grossly Intact Patient Reliability: Reliable Historian Intelligence Estimate: Average Judgment: Fair Insight: Partial Assessment and Plan (1) Suicidal ideations Current visit: No Status: Resolved Plan: Admit inpatient for safety and stabilization, Close observation, Suicide Precautions per unit protocol, Encourage participation in unit milieu, Group Therapy, Monitor sleep, Monitor appetite, Family/Supportive other meeting Risks, benefits, side effects, alternatives discussed w/pt: Yes Patient agreeable to treatment: Yes Plans for Post Hospital Care: Transfer In Rehab Fac (2) Other bipolar disorder Current visit: No Status: Acute Plan: Admit inpatient for safety and stabilization, Close observation, Suicide Precautions per unit protocol, Encourage participation in unit milieu, Group Therapy, Monitor sleep, Monitor appetite Risks, benefits, side effects, alternatives discussed w/pt: Yes Patient agreeable to treatment: Yes Plans for Post Hospital Care: Transfer In Rehab [facility] (3) Other stimulant dependence with stimulant-induced mood disorder Current visit: No Status: Acute Plan: Admit inpatient for safety and stabilization, Close observation, Suicide Precautions per unit protocol, Encourage participation in unit milieu, Monitor appetite, Family/Supportive other meeting Risks, benefits, side effects, alternatives discussed w/pt: Yes Patient agreeable to treatment: Yes Plans for Post Hospital Care: Transfer In Rehab [facility] (4) 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
[2017-06-23] MEDS ORDERED: ARIPiprazole 5 MG TABLET PO SCH (21:00)
[2017-06-23] MEDS: Gabapentin 100 MG CAPSULE PO SCH (21:02)
[2017-06-24] MEDS: *HR* OxyCODONE Immed Rel 5 MG TABLET PO PRN ×2 (06:49→15:13)
[2017-06-24] MEDS: Nicotine 21 MG PATCH.TD24 TD SCH (08:25)
[2017-06-24] MEDS: Gabapentin 100 MG CAPSULE PO SCH ×3 (08:25→20:23)
[2017-06-24] MEDS: ARIPiprazole 10 MG TABLET PO SCH (08:25)
[2017-06-24] MEDS: *HR* HYDROcodone/Acet 5/325 mg TABLET PO PRN ×2 (13:11→20:24)
--- NOTE | 2017-06-24 13:47 | Psychiatry Progress Note ---
Date of Encounter: 06/24/17 Time of Encounter: 13:30 Subjective Interval history: Patient seen today, case d/w treatment team and patient has been compliant with medications. he is c/o pain today , denies any problem with urination and no other complain except pain. he slept well ,moods are better except tired , no suicidal or homicidal thoughts. discharge planning in progress , patient need placement in in patient rehab. denies side effects. Review of Systems Psychiatric: Reports: depression, anxiety, mood swings Results - Vital Signs Vital Signs: Temp Pulse Resp BP 97.8 F 94 16 129/85 06/24/17 08:26 06/24/17 08:26 06/24/17 08:26 06/24/17 08:26 Assessment and Plan (1) Suicidal ideations Current visit: No Status: Resolved Plan: Continue hospitalization, Close observation, Suicide Precautions per unit protocol, Group Therapy, Monitor sleep Risks, benefits, side effects, alternatives discussed w/pt: Yes Patient agreeable to treatment: Yes (2) Other bipolar disorder Current visit: No Status: Acute Plan: Continue hospitalization, Close observation, Suicide Precautions per unit protocol, Encourage participation in unit milieu, Group Therapy, Monitor sleep, Monitor appetite, Family/Supportive other meeting Risks, benefits, side effects, alternatives discussed w/pt: Yes Patient agreeable to treatment: Yes (3) Other stimulant dependence with stimulant-induced mood disorder Current visit: No Status: Acute Plan: Continue hospitalization, Close observation, Suicide Precautions per unit protocol, Encourage participation in unit milieu, Group Therapy, Monitor sleep, Monitor appetite, Family/Supportive other meeting Risks, benefits, side effects, alternatives discussed w/pt: Yes Patient agreeable to treatment: Yes (4) 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 Current visit: No Status: Acute Risks, benefits, side effects, alternatives discussed w/pt: Yes Patient agreeable to treatment: Yes (5) Priapism Current visit: No Status: Resolved Plan: Continue hospitalization, Close observation Risks, benefits, side effects, alternatives discussed w/pt: Yes Patient agreeable to treatment: Yes Consult Discharge Plan - Plan Referrals: NONE,PCP [Primary Care Provider] - Psychiatry Exam - Constitutional Vitals: Temp Pulse Resp BP 97.8 F 94 16 129/85 06/24/17 08:26 06/24/17 08:26 06/24/17 08:26 06/24/17 08:26 General appearance: age & developmentally appropriate, unkempt - Musculoskeletal Gait: slow Station: other Strength & Tone: normal for patient - Psychiatric Patient Orientation: Yes Person, Yes Time, Yes Place, Yes Circumstance Level of alertness: Alert Behavior: cooperative, withdrawn Psychomotor activity: Slowed Eye Contact: Maintains Eye Contact Mood Description: Anxious Affect description: congruent with mood Speech Volume: Normal Speech pattern: normal rate, normal rhythm, normal tone, coherent Language & Vocabulary: consistent with education Thought Process: Intact Thought Content: Yes Intact Attention Span Ability: Capable of Focused Attention Memory Description: Grossly Intact Patient Reliability: Reliable Historian Fund of knowledge: Yes average Intelligence Estimate: Average Judgment: Fair Insight: Partial
[2017-06-25] MEDS: *HR* OxyCODONE Immed Rel 5 MG TABLET PO PRN (07:31)
[2017-06-25] MEDS: ARIPiprazole 10 MG TABLET PO SCH (08:23)
[2017-06-25] MEDS: Nicotine 21 MG PATCH.TD24 TD SCH (08:23)
[2017-06-25] MEDS: Gabapentin 100 MG CAPSULE PO SCH (08:23)
[2017-06-25 09:05] VITALS: BP 132/84
--- NOTE | 2017-06-25 10:39 | Discharge Summary ---
Date of Encounter: 06/25/17 Time of Encounter: 10:32 Diagnosis - Discharge Diagnosis (1) Suicidal ideations Status: Resolved Comments: patient at present not suicidal/homicidal, he will be discharged to inpatient rehab for continuity of care and to maintain soberity. (2) Other bipolar disorder Status: Acute Comments: patient is stable, moods better, and no impulsivity or anger. 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 Medications - Discharge Medications Prescriptions: ARIPiprazole [Abilify] 10 mg PO DAILY #30 tablet Nicotine Patch [Nicoderm] 21 mg TD DAILY patch.td24 06/22/17 [Rx] ARIPiprazole [Abilify] 10 mg PO DAILY #30 tablet 06/25/17 [Rx] 3 Allergy/AdvReac Type Severity Reaction Status Date / Time Bee Pollen Allergy Anaphylaxis Verified 06/15/17 14:27 Provider Date of admission: 06/22/17 15:38 Primary care physician: PCP NONE Consults: 06/22/17 17:20 Consult to Pastoral Services [CONS] Routine Comment: Psychiatry Exam - Constitutional Vitals: Temp Pulse Resp BP 98.2 F 101 16 132/84 06/25/17 09:00 06/25/17 09:00 06/25/17 09:00 06/25/17 09:00 General appearance: age & developmentally appropriate - Musculoskeletal Gait: normal Station: relaxed Strength & Tone: normal for patient - Psychiatric Patient Orientation: Yes Person, Yes Time, Yes Place, Yes Circumstance Level of alertness: Alert Behavior: calm, cooperative Psychomotor activity: Normal Eye Contact: Maintains Eye Contact Mood Description: Euthymic/stable Affect description: constricted Speech Volume: Normal Speech pattern: normal rate, normal rhythm, normal tone, coherent Language & Vocabulary: consistent with education Thought Process: Intact Thought Content: Yes Intact Attention Span Ability: Capable of Focused Attention Memory Description: Grossly Intact Patient Reliability: Reliable Historian Fund of knowledge: Yes average Intelligence Estimate: Average Judgment: Fair Insight: Partial Hospital Course Hospital course: Mr. Sarabia is a 32 year old male who was admitted from ED. He was admitted to [facility] for depression and suicidal ideation , psychosis, agitated and irritated and using street drugs and no medications. history of Bipolar Affective Disorder unspecified/Substance use disorder. He was then transfered to medical floor as had priapism , he has h/o priapism for 2.5 yrs , since then no treatment states when it happens he knows what to do. He was transfered to medical floor and had shunt placed then re admitted to 1A. he is to follow up for prosthesis , which as per him he will once he is done with rehab. During his course of hospitalization. Patient has been compliant with medications, secondary to his h/i priapism only certain medications can be given , he is stable on abilify 10 mg and gabapentin was decreased and tapered off as going to rehab. he is sleeping better, moods are tired but euthymic and no suicidal/homicidal ideation, denies psychosis, compliant with treatment and unit milieu. denies side effects. at present stable to transfer to inpatient rehab. Time spent discussing smoking cessation with patient: 3 to 10 minutes Does patient wish to continue nicotine replacement upon disc: Yes (he would like to continue patches.) - Time Spent with Patient Total time spent providing and/or coordinating discharge services: Less than 30 minutes Assessment and Plan - Patient/Caregiver Discharge Instructions Activity: resume usual activities as tolerated Diet: regular diet Additional Instructions: You are going to [facility] at [address] [place] [address], . All physical health and mental health follow-up will be arranged for you by [facility] staff after your arrival. The 21/10 mental health crisis line for [facility] is Crisis [phone]. - Follow up Plan Follow up with: NONE,PCP [Primary Care Provider] - Overall status at discharge: Stable Disposition: Transfer Inpatient Rehab Fac Quality - Multiple Antipsychotics Patient discharged on 2 or more antipsychotic medications: No Procedures - Procedures Procedures: Medication Management, Crisis Stabilization, Supportive Therapy, Group Therapy, Psychoeducational Therapy
== END 2017-06-25 13:15 | DRG 753 ==
LOC: 1ANU 15:38 → SUATTDRO 15:38
PROVIDERS: ADMIT Psychiatry & Neurology Psychiatry; ATTEND Psychiatry & Neurology Psychiatry

== ENCOUNTER 2018-10-16 14:43 | Observation (INO) ==
[2018-10-16] MEDS ORDERED: *HR* LORazepam 2 MG/ML VIAL IM ONE (15:15)
[2018-10-16 15:36] LABS: Basophils % 0.3 %; Eosinophils # 0.1 K/mcL (0.0-0.6); Eosinophils % 0.8 %; Hematocrit 44.7 % (37.5-50.1); Immature Granulocytes % 0.5 % (0-4); Lymphocytes # 2.5 K/mcL (0.6-4.6); Lymphocytes % 28.9 %; Mean Corpuscular HGB Conc 33.6 g/dL (31.6-35.5); Mean Corpuscular Hemoglobin 31.8 pg (28.0-33.3); Mean Corpuscular Volume 94.7 fL (83.0-100.0); Mean Platelet Volume 9.3 fL (9.4-12.4); Monocytes # 0.8 K/mcL (0.0-1.3); Monocytes % 9.8 %; Neutrophils # 5.1 K/mcL (1.6-8.9); Platelet Count 309 K/mcL (140-400); Red Blood Count 4.72 M/mcL (4.19-5.50); Red Cell Distribution Width 12.2 % (11.5-14.5); Segmented Neutrophils % 59.7 %; White Blood Count 8.6 K/mcL (4.3-11.1)
[2018-10-16 15:38] LABS: Amphetamine Screen,Urine Positive ng/mL (Cutoff=1000); Barbiturate Screen,Urine Negative ng/mL (Cutoff=200); Benzodiazepines Screen,Urine Negative ng/mL (Cutoff=200); Cannabinoid Screen,Urine Negative ng/mL (Cutoff = 50); Cocaine Screen,Urine Negative ng/mL (Cutoff= 300); Opiate Screen,Urine Negative ng/mL (Cutoff=300); Phencyclidine Screen,Urine Negative ng/mL (Cutoff=25)
[2018-10-16 15:41] LABS: Bilirubin,Urine Negative (Negative); Blood,Urine Negative (Negative); Clarity,Urine Cloudy (Clear); Color,Urine Yellow (Yellow); Glucose,Urine (UA) Normal (Normal); Ketones,Urine Negative (Negative); Leukocyte Esterase,Urine Negative (Negative); Nitrite,Urine Negative (Negative); Protein,Urine Negative (Neg-Trace); Specific Gravity,Urine 1.014 (1.010-1.025); Urobilinogen,Urine Normal (Normal)
[2018-10-16 15:44] LABS: Bacteria,Urine None Seen per hpf (None-Few); Hyaline Casts,Urine None Seen per lpf (None-Few); RBC,Urine 0-3 per hpf (0-3); Squamous Epithelial Cell,Urine Moderate per lpf (None-Few); WBC,Urine 0-3 per hpf (0-3)
--- NOTE | 2018-10-16 15:48 | Emergency Department Note ---
Disposition Clinical Impression: Suicidal ideation, Homicidal ideation Disposition: Still a Patient Time of Disposition: 15:53 General Adult HPI - General Chief complaint: ED Psychiatric Symptoms Stated complaint: SI / HI Time Seen by Provider: 10/16/18 14:50 Source: patient Limitations: no limitations Nursing Notes Reviewed: Yes Vital Signs Reviewed: Yes - History of Present Illness HPI Narrative: 33-year-old male comes in to spontaneous with homicidal and suicidal ideations by EMS. Patient has history of suicidal ideations in the past has attempted to cut himself several times declined to be anything today just woke up this gir lfriend today is very despondent and feels he might hurt his girlfriend and kill himself with a knife. No firearms in the house as when questioned. Patient denied any toxic ingestions today. He has been out of his meds for approximately a month since he missed an appointment negative mildly one refill from his mental health provider. Patient denies shortness breath, chest pain, dysuria back pain weakness numbness fever or headache photophobia and nausea or vomiting. Pain Scale: 8 - Related Data Previous Rx's Medication Instructions Recorded Nicotine Patch [Nicoderm] 21 mg TD DAILY patch.td24 06/22/17 ARIPiprazole [Abilify] 10 mg PO DAILY #30 tablet 06/25/17 methylPREDNISolone [Medrol] 1 each PO DAILY #1 pack 08/01/18 Allergies Allergy/AdvReac Type Severity Reaction Status Date / Time Bee Pollen Allergy Anaphylaxis Verified 08/01/18 06:23 All systems ED: reviewed and negative except as stated. Psychiatric: Reports: anxiety, depression, suicidal thoughts, homicidal thoughts Past Medical History - Past Medical History Attestation: Yes The following information was validated with the patient. Source: patient Medical history: Reports: hepatitis, hypertension, other Surgical history: Reports: cholecystectomy, other Psychiatric history: Reports: bipolar, depression, PTSD, prior suicide attempt, previous psychiatric hospitalization - Social History Smoking Status: Current every day smoker Smokeless Tobacco Status: No Alcohol use: Reports: occasionally Drug use: Reports: opiates, methamphetamine, prescription drug abuse, other Physical Exam - General Limitations: no limitations General appearance: alert, in no apparent distress - Head Head exam: atraumatic, normocephalic - Eye Eye exam: Present: normal appearance, PERRL, EOMI - ENT ENT exam: normal exam, normal oropharynx - Neck Neck exam: Present: normal inspection, full ROM - Chest Chest inspection: Present: normal inspection, symmetric chest wall rise - Respiratory Respiratory exam: Present: normal lung sounds bilaterally - Cardiovascular Cardiovascular exam: Present: regular rate, normal rhythm - Abdominal Exam Abdominal exam: Present: soft, Non-Tender - Extremities Exam Extremities exam: Present: normal inspection, full ROM. Absent: pedal edema - Expanded Lower Extremity Exam Neurovascular/Tendon exam: Present: normal capillary refill Gait: observed and normal - Neurological Exam Neurological exam: Present: alert, oriented X3, CN II-XII intact - Psychiatric Psychiatric exam: Present: depressed, anxious - Skin Skin exam: Present: warm, dry, intact Course - Reevaluation(s) Reevaluation #1: Patient's physical examination is benign pink slip has been executed and is on chart. Patient has been here before for mental health issues and admitted understands the workup. Awaiting results of the urinalysis and blood work patient will then be medically cleared and evaluated by mental health services. Disposition pending Time: 15:52 Vital Signs Temperature 99.0 F 10/16/18 14:52 Pulse Rate 114 10/16/18 14:52 Respiratory Rate 19 10/16/18 14:52 Blood Pressure 120/77 10/16/18 14:52 O2 Sat by Pulse Oximetry 97 10/16/18 14:52 Temperature 99.0 F 10/16/18 14:52 Pulse Rate 114 10/16/18 14:52 Respiratory Rate 19 10/16/18 14:52 Blood Pressure 120/77 10/16/18 14:52 O2 Sat by Pulse Oximetry 97 10/16/18 14:52 Oxygen Delivery Oxygen Delivery Room Air Medical Decision Making - Lab Data Result diagrams: 10/16/18 15:19 Lab Results 10/16/18 10/16/18 10/16/18 Range/Units 14:50 15:12 15:19 WBC 8.6 (4.3-11.1) K/mcL RBC 4.72 (4.19-5.50) M/mcL Hgb 15.0 (12.9-16.9) g/dL Hct 44.7 (37.5-50.1) % MCV 94.7 (83.0-100.0) fL MCH 31.8 (28.0-33.3) pg MCHC 33.6 (31.6-35.5) g/dL RDW 12.2 (11.5-14.5) % Plt Count 309 (140-400) K/mcL MPV 9.3 L (9.4-12.4) fL Immature Gran % 0.5 (0-4) % Seg Neutrophils % 59.7 % Lymphocytes % 28.9 % Monocytes % 9.8 % Eosinophils % 0.8 % Basophils % 0.3 % Neutrophils # 5.1 (1.6-8.9) K/mcL Lymphocytes # 2.5 (0.6-4.6) K/mcL Monocytes # 0.8 (0.0-1.3) K/mcL Eosinophils # 0.1 (0.0-0.6) K/mcL Basophils # 0.0 (0.0-0.2) K/mcL Urine Color Yellow (Yellow) Urine Clarity Cloudy A (Clear) Urine pH 6.0 (5.0-8.0) pH Units Ur Specific [place] 1.014 (1.010-1.025) Urine Protein Negative (Neg-Trace) mg/dL Urine Glucose (UA) Normal (Normal) mg/dL Urine Ketones Negative (Negative) mg/dL Urine Blood Negative (Negative) Urine Nitrite Negative (Negative) Urine Bilirubin Negative (Negative) Urine Urobilinogen Normal (Normal) mg/dL Ur Leukocyte Esterase Negative (Negative) Urine Opiates Screen Negative (Sbjhia=674) ng/mL Ur Buprenorphine Scrn Negative (Cutoff=5) ng/mL Ur Barbiturates Screen Negative (Ocjjif=016) ng/mL Ur Phencyclidine Scrn Negative (Cutoff=25) ng/mL Ur Amphetamines Screen Positive H (Nwycgo=3600) ng/mL U Benzodiazepines Scrn Negative (Jpqqvy=303) ng/mL Urine Cocaine Screen Negative (Cutoff= 300) ng/mL U Marijuana (THC) Screen Negative (Cutoff = 50) ng/mL Ur Drug Screen Interp See Below
[2018-10-16 15:57] LABS: Acetaminophen < 10 mcg/mL (10-20); BUN/Creatinine Ratio 11 (6-26); Blood Urea Nitrogen 11 mg/dL (6-20); Calcium 9.3 mg/dL (8.6-10.3); Carbon Dioxide 29 mEq/L (23-29); Chloride 103 mEq/L (98-107); Ethanol 85 mg/dL (Less than 10); Glucose 94 mg/dL (70-105); Osmolality,Calculated 297 (280-300); Potassium 4.6 mEq/L (3.5-5.1); Salicylate < 2.5 mg/dL (15.0-30.0); Sodium 144 mEq/L (136-145); eGFR For African Americans > 60 (> 60); eGFR For Non-African Americans > 60 (> 60)
--- NOTE | 2018-10-16 16:37 | Emergency Department Note ---
Disposition Clinical Impression: Suicidal ideation, Homicidal ideation, Seizures, Seizure secondary to subtherapeutic anticonvulsant medication Disposition: Admitted As Inpatient Condition: Fair Referrals: NONE,PCP [Primary Care Provider] - Forms: ED Satisfaction Letter Time of Disposition: 22:15 General Adult HPI - General Chief complaint: ED Psychiatric Symptoms Stated complaint: SI / HI Time Seen by Provider: 10/16/18 14:50 Source: patient Limitations: no limitations - History of Present Illness Pain Scale: 8 - Related Data Home Medications Medication Instructions Recorded Confirmed Atomoxetine [Strattera] 40 mg PO DAILY 10/16/18 10/16/18 Benztropine [Cogentin] 0.5 mg PO DAILY 10/16/18 10/16/18 Divalproex (12 HR) [Depakote (12 2,000 mg PO DAILY 10/16/18 10/16/18 HR)] Lisinopril [Zestril] 5 mg PO DAILY 10/16/18 10/16/18 OLANZapine [Zyprexa] 25 mg PO DAILY 10/16/18 10/16/18 Allergies Allergy/AdvReac Type Severity Reaction Status Date / Time Bee Pollen Allergy Anaphylaxis Verified 08/01/18 06:23 Psychiatric: Reports: anxiety, depression, suicidal thoughts, homicidal thoughts Past Medical History - Past Medical History Medical history: Reports: hepatitis, hypertension, other Surgical history: Reports: cholecystectomy, other Psychiatric history: Reports: bipolar, depression, PTSD, prior suicide attempt, previous psychiatric hospitalization - Social History Smoking Status: Current every day smoker Smokeless Tobacco Status: No Alcohol use: Reports: occasionally Drug use: Reports: opiates, methamphetamine, prescription drug abuse, other Physical Exam - General Limitations: no limitations General appearance: alert, in no apparent distress Course Vital Signs Temperature 99.0 F 10/16/18 14:52 Pulse Rate 114 10/16/18 14:52 Respiratory Rate 10/16/18 14:52 Blood Pressure 120/77 10/16/18 14:52 O2 Sat by Pulse Oximetry 97 10/16/18 14:52 Temperature 99.0 F 10/16/18 14:52 Pulse Rate 114 10/16/18 14:52 Respiratory Rate 10/16/18 14:52 Blood Pressure 120/77 10/16/18 14:52 O2 Sat by Pulse Oximetry 97 10/16/18 14:52 Oxygen Delivery Oxygen Delivery Room Air Medical Decision Making - Lab Data Result diagrams: 10/16/18 15:19 10/16/18 15:19 Lab Results 10/16/18 10/16/18 10/16/18 Range/Units 14:50 15:12 15:19 WBC 8.6 (4.3-11.1) K/mcL RBC 4.72 (4.19-5.50) M/mcL Hgb 15.0 (12.9-16.9) g/dL Hct 44.7 (37.5-50.1) % MCV 94.7 (83.0-100.0) fL MCH 31.8 (28.0-33.3) pg MCHC 33.6 (31.6-35.5) g/dL RDW 12.2 (11.5-14.5) % Plt Count 309 (140-400) K/mcL MPV 9.3 L (9.4-12.4) fL Immature Gran % 0.5 (0-4) % Seg Neutrophils % 59.7 % Lymphocytes % 28.9 % Monocytes % 9.8 % Eosinophils % 0.8 % Basophils % 0.3 % Neutrophils # 5.1 (1.6-8.9) K/mcL Lymphocytes # 2.5 (0.6-4.6) K/mcL Monocytes # 0.8 (0.0-1.3) K/mcL Eosinophils # 0.1 (0.0-0.6) K/mcL Basophils # 0.0 (0.0-0.2) K/mcL Sodium (136-145) mEq/L Potassium (3.5-5.1) mEq/L Chloride (98-107) mEq/L Carbon Dioxide (23-29) mEq/L BUN (6-20) mg/dL Creatinine (0.70-1.30) mg/dL Est GFR ( Amer) (> 60) Est GFR (Non-Af Amer) (> 60) BUN/Creatinine Ratio (6-26) Glucose (70-105) mg/dL Calculated Osmolality (280-300) Calcium (8.6-10.3) mg/dL Urine Color Yellow (Yellow) Urine Clarity Cloudy A (Clear) Urine pH 6.0 (5.0-8.0) pH Units Ur Specific [place] 1.014 (1.010-1.025) Urine Protein Negative (Neg-Trace) mg/dL Urine Glucose (UA) Normal (Normal) mg/dL Urine Ketones Negative (Negative) mg/dL Urine Blood Negative (Negative) Urine Nitrite Negative (Negative) Urine Bilirubin Negative (Negative) Urine Urobilinogen Normal (Normal) mg/dL Ur Leukocyte Esterase Negative (Negative) Urine Microscopic RBC 0-3 (0-3) per hpf Urine Microscopic WBC 0-3 (0-3) per hpf Ur Squamous Epith Cells Moderate H (None-Few) per lpf Urine Bacteria None Seen (None-Few) per hpf Hyaline Casts None Seen (None-Few) per lpf Salicylates (15.0-30.0) mg/dL Urine Opiates Screen Negative (Zkibsi=317) ng/mL Ur Buprenorphine Scrn Negative (Cutoff=5) ng/mL Acetaminophen (10-20) mcg/mL Ur Barbiturates Screen Negative (Yuqshm=812) ng/mL Valproic Acid (50-100) mcg/mL Ur Phencyclidine Scrn Negative (Cutoff=25) ng/mL Ur Amphetamines Screen Positive H (Nlxghj=2916) ng/mL U Benzodiazepines Scrn Negative (Ngxlce=328) ng/mL Urine Cocaine Screen Negative (Cutoff= 300) ng/mL U Marijuana (THC) Screen Negative (Cutoff = 50) ng/mL Ur Drug Screen Interp See Below Ethyl Alcohol (Less than 10) mg/dL 10/16/18 10/16/18 Range/Units 15:19 17:07 WBC (4.3-11.1) K/mcL RBC (4.19-5.50) M/mcL Hgb (12.9-16.9) g/dL Hct (37.5-50.1) % MCV (83.0-100.0) fL MCH (28.0-33.3) pg MCHC (31.6-35.5) g/dL RDW (11.5-14.5) % Plt Count (140-400) K/mcL MPV (9.4-12.4) fL Immature Gran % (0-4) % Seg Neutrophils % % Lymphocytes % % Monocytes % % Eosinophils % % Basophils % % Neutrophils # (1.6-8.9) K/mcL Lymphocytes # (0.6-4.6) K/mcL Monocytes # (0.0-1.3) K/mcL Eosinophils # (0.0-0.6) K/mcL Basophils # (0.0-0.2) K/mcL Sodium 144 (136-145) mEq/L Potassium 4.6 (3.5-5.1) mEq/L Chloride 103 (98-107) mEq/L Carbon Dioxide 29 (23-29) mEq/L BUN 11 (6-20) mg/dL Creatinine 0.97 (0.70-1.30) mg/dL Est GFR ( Amer) > 60 (> 60) Est GFR (Non-Af Amer) > 60 (> 60) BUN/Creatinine Ratio 11 (6-26) Glucose 94 (70-105) mg/dL Calculated Osmolality 297 (280-300) Calcium 9.3 (8.6-10.3) mg/dL Urine Color (Yellow) Urine Clarity (Clear) Urine pH (5.0-8.0) pH Units Ur Specific [place] (1.010-1.025) Urine Protein (Neg-Trace) mg/dL Urine Glucose (UA) (Normal) mg/dL Urine Ketones (Negative) mg/dL Urine Blood (Negative) Urine Nitrite (Negative) Urine Bilirubin (Negative) Urine Urobilinogen (Normal) mg/dL Ur Leukocyte Esterase (Negative) Urine Microscopic RBC (0-3) per hpf Urine Microscopic WBC (0-3) per hpf Ur Squamous Epith Cells (None-Few) per lpf Urine Bacteria (None-Few) per hpf Hyaline Casts (None-Few) per lpf Salicylates < 2.5 L (15.0-30.0) mg/dL Urine Opiates Screen (Bdkjju=395) ng/mL Ur Buprenorphine Scrn (Cutoff=5) ng/mL Acetaminophen < 10 L (10-20) mcg/mL Ur Barbiturates Screen (Metnsp=576) ng/mL Valproic Acid < 4 L (50-100) mcg/mL Ur Phencyclidine Scrn (Cutoff=25) ng/mL Ur Amphetamines Screen (Dkvevr=4781) ng/mL U Benzodiazepines Scrn (Hwuela=282) ng/mL Urine Cocaine Screen (Cutoff= 300) ng/mL U Marijuana (THC) Screen (Cutoff = 50) ng/mL Ur Drug Screen Interp Ethyl Alcohol 85 H 46 H (Less than 10) mg/dL Attestation Statement - Attestation Attestation: Care assumed from Dr. Pitt at 16:30 pending repeat alcohol level and mental health assessment. Patient presented feeling suicidal. He has known history of mental health issues. Labs as drawn by the previous team reviewed by me 22:13: Repeat blood alcohol level was within an acceptable range. [facility] has evaluated this patient and it is the psychiatrist's recommendation and the mental health units managers accommodation that the patient be admitted to the medicine service for observation given his history of seizures and his subtherapeutic Depakote level. I will attempt to admit this patient to the medicine service
[2018-10-16 17:37] LABS: Ethanol 46 mg/dL (Less than 10)
[2018-10-16] MEDS ORDERED: Ibuprofen 800 MG TABLET PO ONE (20:25)
[2018-10-16 20:49] LABS: Valproate < 4 mcg/mL (50-100)
[2018-10-16] MEDS ORDERED: Divalproex (12 HR) 500 MG TABLET PO ONE (21:45)
[2018-10-17] MEDS ORDERED: Gadolinium Contrast Agent (WT Based) IV PRN (00:05)
[2018-10-17] MEDS ORDERED: *HR* LORazepam 2 MG/ML VIAL IVP PRN ×3 (00:09)
[2018-10-17] MEDS ORDERED: *HR* Promethazine 25 MG/ML VIAL IVP PRN (00:09)
[2018-10-17] MEDS ORDERED: tiZANidine 4 MG TABLET PO ONE (00:21)
[2018-10-17] MEDS ORDERED: Acetaminophen 325 MG TABLET PO PRN (00:24)
[2018-10-17] MEDS ORDERED: Naloxone 0.4 MG/ML INJ IVP PRN (00:24)
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
[2018-10-17] MEDS: Nicotine 21 MG PATCH.TD24 TD SCH (01:08)
[2018-10-17 01:21] LABS: Hematocrit 41.7 % (37.5-50.1); Hemoglobin 14.1 g/dL (12.9-16.9); Mean Corpuscular HGB Conc 33.8 g/dL (31.6-35.5); Mean Corpuscular Hemoglobin 31.8 pg (28.0-33.3); Mean Corpuscular Volume 94.1 fL (83.0-100.0); Mean Platelet Volume 9.3 fL (9.4-12.4); Platelet Count 295 K/mcL (140-400); Red Blood Count 4.43 M/mcL (4.19-5.50); White Blood Count 9.3 K/mcL (4.3-11.1)
[2018-10-17 01:38] LABS: Amylase 35 Units/L (29-103); Lipase 36 Units/L (11-82)
[2018-10-17 01:41] LABS: BUN/Creatinine Ratio 16 (6-26); Blood Urea Nitrogen 15 mg/dL (6-20); Calcium 8.6 mg/dL (8.6-10.3); Carbon Dioxide 25 mEq/L (23-29); Chloride 106 mEq/L (98-107); Chol/HDL Ratio 3.5 (0-4.9); Cholesterol 146 mg/dL (< 200); Glucose 107 mg/dL (70-105); HDL Cholesterol 42 mg/dL (40-59); LDL Cholesterol,Calculated 82 mg/dL (0-99); Magnesium 2.1 mg/dL (1.6-2.6); Osmolality,Calculated 287 (280-300); Sodium 138 mEq/L (136-145); Triglycerides 109 mg/dL (< 150); eGFR For African Americans > 60 (> 60); eGFR For Non-African Americans > 60 (> 60)
[2018-10-17] MEDS: *HR* Heparin 5,000 UNIT/ML VIAL SQ SCH ×3 (05:32→22:22)
[2018-10-17] MEDS: traMADol 50 MG TABLET PO PRN (09:29)
[2018-10-17] MEDS: Divalproex (12 HR) 500 MG TABLET PO SCH (09:29)
[2018-10-17] MEDS: OLANZapine 10 MG TAB.RAPDIS PO SCH (09:29)
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
--- NOTE | 2018-10-17 12:42 | Consult Note ---
Date of Encounter: 10/17/18 Time of Encounter: 12:38 Assessment & Recommendation (1) Depressive disorder Current visit: No Status: Acute Assessment & Recommendation: Unable to fully assess client today as he kept falling asleep during the interview. Not taking any mental health medications in the community so would not worry about starting anything now. Continues to endorse SI and will need transferred to an inpatient mental health unit once medically cleared. Will assess for medication management after transfer. History of Present Illness Requesting Physician: Akila Lewis Reason for consult: SI/HI History of present illness: Mr. Sarabia is a 33 year old male who presented to the ER with SI/HI but was admitted medically secondary to client endorsing multiple seizures a day and not taking his antiepileptics as prescribed. Client is suspected of having pseudoseizures but may have epileptic seizure activity as well. On eval today client is sedated and repeatedly fell asleep during the interview. Unable to give much history. He did endorse SI which he states is secondary to breaking up with his girlfriend. Denies any further HI. Has a history of mental health hospitalizations and prior suicide attempts but noncompliant as an outpatient. Claims he is not currently on any medications or linked with a psychiatrist. Will need stabilized prior to discharge. CC: Akila Lewis Past Med Surg Social Fam HX - Past Medical History Medical history: hepatitis (C), hypertension, seizures, other - Past Psychiatric History Psychiatric history: Reports: prior suicide attempt, previous psychiatric hospitalization Family psychiatric history: Unknown Family History of Suicide: Unknown - Past Surgical History Surgical History: cholecystectomy, other - Social History Smoking Status: Current every day smoker Smokeless Tobacco Status: No Alcohol use: occasionally Drug use: opiates, methamphetamine, prescription drug abuse, other - Family History Father Race: Family Member Ethnicity: Non- Living Status: Age at : 35 Cause of : Suicide Hx Family Psychosocial Disorders: Yes (Suicide) Brother Race: Family Member Ethnicity: Non- Living Status: Still Living Hx Family Medical Disorders: No Mother Race: Family Member Ethnicity: Non- Living Status: Still Living Hx Family Cardiac Disorders: Yes (CAD, Stents x4, HTN) Grandfather Race: Family Member Ethnicity: Non- Living Status: Hx Family Cardiac Disorders: Yes ([place]) Medications & Allergies Atomoxetine [Strattera] 40 mg PO DAILY 10/16/18 [History] Benztropine [Cogentin] 0.5 mg PO DAILY 10/16/18 [History] Divalproex (12 HR) [Depakote (12 HR)] 2,000 mg PO DAILY 10/16/18 [History] Lisinopril [Zestril] 5 mg PO DAILY 10/16/18 [History] OLANZapine [Zyprexa] 25 mg PO DAILY 10/16/18 [History] Allergy/AdvReac Type Severity Reaction Status Date / Time Bee Pollen Allergy Anaphylaxis Verified 08/01/18 06:23 Review of Systems Constitutional: Denies: fever, chills, weakness, weight change Eyes: Denies: eye pain, vision change Ears, Nose, Throat: Denies: ear pain, throat pain, dental pain, hearing loss, congestion Cardiovascular: Denies: chest pain, palpitations, dyspnea on exertion Respiratory: Denies: cough, dyspnea, wheezes Gastrointestinal: Denies: abdominal pain, nausea, vomiting, diarrhea, constipation Genitourinary male: Denies: urgency, dysuria, frequency, genital lesions Musculoskeletal: Reports: back pain Integumentary: Denies: rash, lesions, pruritus Neurological: Reports: other Endocrine: Denies: fatigue, heat or cold intolerance Hematologic/Lymphatic: Denies: easy bruising, lymphadenopathy Allergic/Immunologic: Denies: urticaria, itchy eyes Psychiatry Exam - Constitutional Vitals: Temp Pulse Resp BP Pulse Ox 97.5 F L 87 16 131/80 95 10/17/18 09:14 10/17/18 09:14 10/17/18 09:14 10/17/18 09:14 10/17/18 09:14 General appearance: age & developmentally appropriate, well-groomed, well-nourished - Musculoskeletal Station: relaxed Strength & Tone: normal for patient - Psychiatric Patient Orientation: Yes Person, Yes Time, Yes Place Level of alertness: Sedated Behavior: uncooperative Psychomotor activity: Normal Eye Contact: No Eye Contact Mood Description: Depressed Affect description: congruent with mood Speech Volume: Soft/Quiet Speech pattern: mumbled Language & Vocabulary: consistent with education Thought Process: Linear Thought Content: Yes Suicidal ideation, No Homicidal ideation, No Overt delusions Perceptual Disturbances: No Auditory hallucinations, No Visual hallucinations Attention Span Ability: Unable to Focus Memory Description: Grossly Intact Patient Reliability: Questionable Historian Fund of knowledge: Yes abstraction ability Intelligence Estimate: Average Judgment: Limited Insight: Minimal Results - Drug Levels and Toxicology Drug Levels and Toxicology: Drug Levels and Toxicity 10/16/18 10/16/18 10/16/18 15:12 15:19 17:07 Urine Opiates Screen Negative Acetaminophen < 10 L Ur Barbiturates Screen Negative Ur Phencyclidine Scrn Negative Ur Amphetamines Screen Positive H U Benzodiazepines Scrn Negative Urine Cocaine Screen Negative U Marijuana (THC) Screen Negative Ethyl Alcohol 85 H 46 H - Labs Labs: Laboratory Last Values WBC 9.3 K/mcL (4.3-11.1) 10/17/18 01:08 RBC 4.43 M/mcL (4.19-5.50) 10/17/18 01:08 Hgb 14.1 g/dL (12.9-16.9) 10/17/18 01:08 Hct 41.7 % (37.5-50.1) 10/17/18 01:08 MCV 94.1 fL (83.0-100.0) 10/17/18 01:08 MCH 31.8 pg (28.0-33.3) 10/17/18 01:08 MCHC 33.8 g/dL (31.6-35.5) 10/17/18 01:08 RDW 12.0 % (11.5-14.5) 10/17/18 01:08 Plt Count 295 K/mcL (140-400) 10/17/18 01:08 MPV 9.3 fL (9.4-12.4) L 10/17/18 01:08 Immature Gran % 0.5 % (0-4) 10/16/18 15:19 Seg Neutrophils % 59.7 % 10/16/18 15:19 Lymphocytes % 28.9 % 10/16/18 15:19 Monocytes % 9.8 % 10/16/18 15:19 Eosinophils % 0.8 % 10/16/18 15:19 Basophils % 0.3 % 10/16/18 15:19 Neutrophils # 5.1 K/mcL (1.6-8.9) 10/16/18 15:19 Lymphocytes # 2.5 K/mcL (0.6-4.6) 10/16/18 15:19 Monocytes # 0.8 K/mcL (0.0-1.3) 10/16/18 15:19 Eosinophils # 0.1 K/mcL (0.0-0.6) 10/16/18 15:19 Basophils # 0.0 K/mcL (0.0-0.2) 10/16/18 15:19 Sodium 138 mEq/L (136-145) 10/17/18 01:08 Potassium 4.0 mEq/L (3.5-5.1) 10/17/18 01:08 Chloride 106 mEq/L (98-107) 10/17/18 01:08 Carbon Dioxide 25 mEq/L (23-29) 10/17/18 01:08 BUN 15 mg/dL (6-20) 10/17/18 01:08 Creatinine 0.95 mg/dL (0.70-1.30) 10/17/18 01:08 Est GFR ( Amer) > 60 (> 60) 10/17/18 01:08 Est GFR (Non-Af Amer) > 60 (> 60) 10/17/18 01:08 BUN/Creatinine Ratio 16 (6-26) 10/17/18 01:08 Glucose 107 mg/dL (70-105) H 10/17/18 01:08 Calculated Osmolality 287 (280-300) 10/17/18 01:08 Calcium 8.6 mg/dL (8.6-10.3) 10/17/18 01:08 Magnesium 2.1 mg/dL (1.6-2.6) 10/17/18 01:08 Triglycerides 109 mg/dL (< 150) 10/17/18 01:08 Cholesterol 146 mg/dL (< 200) 10/17/18 01:08 LDL Cholesterol, Calc 82 mg/dL (0-99) 10/17/18 01:08 VLDL Cholesterol, Calc 22 mg/dL (< 31) 10/17/18 01:08 HDL Cholesterol 42 mg/dL (40-59) 10/17/18 01:08 Cholesterol/HDL Ratio 3.5 (0-4.9) 10/17/18 01:08 Amylase 35 Units/L (29-103) 10/17/18 01:08 Lipase 36 Units/L (11-82) 10/17/18 01:08 Urine Color Yellow (Yellow) 10/16/18 14:50 Urine Clarity Cloudy (Clear) A 10/16/18 14:50 Urine pH 6.0 pH Units (5.0-8.0) 10/16/18 14:50 Ur Specific [place] 1.014 (1.010-1.025) 10/16/18 14:50 Urine Protein Negative mg/dL (Neg-Trace) 10/16/18 14:50 Urine Glucose (UA) Normal mg/dL (Normal) 10/16/18 14:50 Urine Ketones Negative mg/dL (Negative) 10/16/18 14:50 Urine Blood Negative (Negative) 10/16/18 14:50 Urine Nitrite Negative (Negative) 10/16/18 14:50 Urine Bilirubin Negative (Negative) 10/16/18 14:50 Urine Urobilinogen Normal mg/dL (Normal) 10/16/18 14:50 Ur Leukocyte Esterase Negative (Negative) 10/16/18 14:50 Urine Microscopic RBC 0-3 per hpf (0-3) 10/16/18 14:50 Urine Microscopic WBC 0-3 per hpf (0-3) 10/16/18 14:50 Ur Squamous Epith Cells Moderate per lpf (None-Few) H 10/16/18 14:50 Urine Bacteria None Seen per hpf (None-Few) 10/16/18 14:50 Hyaline Casts None Seen per lpf (None-Few) 10/16/18 14:50 Salicylates < 2.5 mg/dL (15.0-30.0) L 10/16/18 15:19 Urine Opiates Screen Negative ng/mL (Tnoqty=277) 10/16/18 15:12 Ur Buprenorphine Scrn Negative ng/mL (Cutoff=5) 10/16/18 15:12 Acetaminophen < 10 mcg/mL (10-20) L 10/16/18 15:19 Ur Barbiturates Screen Negative ng/mL (Ivilhv=215) 10/16/18 15:12 Valproic Acid < 4 mcg/mL (50-100) L 10/16/18 17:07 Ur Phencyclidine Scrn Negative ng/mL (Cutoff=25) 10/16/18 15:12 Ur Amphetamines Screen Positive ng/mL (Ytzimb=7095) H 10/16/18 15:12 U Benzodiazepines Scrn Negative ng/mL (Vwypnc=666) 10/16/18 15:12 Urine Cocaine Screen Negative ng/mL (Cutoff= 300) 10/16/18 15:12 U Marijuana (THC) Screen Negative ng/mL (Cutoff = 50) 10/16/18 15:12 Ur Drug Screen Interp See Below 10/16/18 15:12 Ethyl Alcohol 46 mg/dL (Less than 10) H 10/16/18 17:07 - Impressions Impressions Lumbar Spine MRI 10/17/18 00:05 IMPRESSION: No evidence of lumbar spine infection on motion degraded exam. L5-S1 disc protrusion abutting the right S1 nerve roots. D/ / Gonzalo Sinclair MD / Gonzalo Sincliar MD Interpreting Provider: Gonzalo Sinclair MD Thoracic Spine MRI 10/17/18 00:05 IMPRESSION: No evidence of thoracic spine infection on motion degraded exam. D/ / Gonzalo Sinclair MD / Gonzalo Sinclair MD Interpreting Provider: Gonzalo Sinclair MD Consult Discharge Plan - Plan Referrals: NONE,PCP [Primary Care Provider] -
[2018-10-18] MEDS: Nicotine 21 MG PATCH.TD24 TD SCH (00:29)
[2018-10-18] MEDS: *HR* Heparin 5,000 UNIT/ML VIAL SQ SCH ×2 (05:20→12:48)
[2018-10-18] MEDS: traMADol 50 MG TABLET PO PRN (06:36)
[2018-10-18 07:13] LABS: Hematocrit 44.2 % (37.5-50.1); Hemoglobin 14.7 g/dL (12.9-16.9); Mean Corpuscular HGB Conc 33.3 g/dL (31.6-35.5); Mean Corpuscular Hemoglobin 32.5 pg (28.0-33.3); Mean Corpuscular Volume 97.6 fL (83.0-100.0); Mean Platelet Volume 9.6 fL (9.4-12.4); Platelet Count 307 K/mcL (140-400); Red Blood Count 4.53 M/mcL (4.19-5.50); Red Cell Distribution Width 12.3 % (11.5-14.5); White Blood Count 8.6 K/mcL (4.3-11.1)
[2018-10-18 07:57] LABS: BUN/Creatinine Ratio 16 (6-26); Blood Urea Nitrogen 15 mg/dL (6-20); Calcium 8.8 mg/dL (8.6-10.3); Carbon Dioxide 27 mEq/L (23-29); Chloride 105 mEq/L (98-107); Glucose 105 mg/dL (70-105); Osmolality,Calculated 287 (280-300); Potassium 4.1 mEq/L (3.5-5.1); Sodium 138 mEq/L (136-145); eGFR For African Americans > 60 (> 60); eGFR For Non-African Americans > 60 (> 60)
[2018-10-18] MEDS: OLANZapine 10 MG TAB.RAPDIS PO SCH (10:00)
[2018-10-18] MEDS: Divalproex (12 HR) 500 MG TABLET PO SCH (10:00)
--- NOTE | 2018-10-18 10:05 | Internal Med Progress Note ---
Hospitalist Progress Note - Encounter Date of Encounter: 10/18/18 Time of Encounter: 10:04 - Exam Vitals: Temp Pulse Resp BP Pulse Ox 97.9 F 58 16 121/76 98 10/18/18 06:35 10/18/18 06:35 10/18/18 06:35 10/18/18 06:35 10/18/18 06:35 - Assessment and Plan (1) Priapism Current Visit: Yes Status: Resolved (2) Hepatitis C Current Visit: Yes Status: Chronic (3) Substance abuse Current Visit: Yes Status: Chronic (4) Suicidal ideation Current Visit: Yes Status: Acute (5) Seizures Current Visit: Yes Status: Chronic (6) Chronic back pain Current Visit: Yes Status: Chronic (7) Right sciatic nerve pain Current Visit: Yes Status: Chronic (8) HTN (hypertension) Current Visit: Yes Status: Chronic (9) Anxiety and depression Current Visit: Yes Status: Chronic (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 (11) Tobacco abuse Current Visit: Yes Status: Chronic (12) DVT prophylaxis Current Visit: Yes Status: Acute (13) Alcohol abuse Current Visit: Yes Status: Chronic - Time Spent with Patient Total time spent is greater than 50% in coordination of care (as documented) at patient's floor/unit and/or counseling patient: Internal Medicine: Result - Labs CBC & Chem 7: 10/18/18 06:29 10/18/18 06:29 Labs: Short CBC 10/18/18 Range/Units 06:29 WBC 8.6 (4.3-11.1) K/mcL Hgb 14.7 (12.9-16.9) g/dL Hct 44.2 (37.5-50.1) % Plt Count 307 (140-400) K/mcL BMP 10/18/18 06:29 Sodium 138 Potassium 4.1 Chloride 105 Carbon Dioxide 27 BUN 15 Creatinine 0.96 Glucose 105 Calcium 8.8 - Impressions Impressions Lumbar Spine MRI 10/17/18 00:05 IMPRESSION: No evidence of lumbar spine infection on motion degraded exam. L5-S1 disc protrusion abutting the right S1 nerve roots. D/ / Gonzalo Sinclair MD / Gonzalo Sinclair MD Interpreting Provider: Gonzalo Sinclair MD Thoracic Spine MRI 10/17/18 00:05 IMPRESSION: No evidence of thoracic spine infection on motion degraded exam. D/ / Gonzalo Sinclair MD / Gonzalo Sinclair MD Interpreting Provider: Gonzalo Sinclair MD Consult Discharge Plan - Plan Referrals: NONE,PCP [Primary Care Provider] - (2) Hepatitis C Qualifiers: Viral hepatitis chronicity: chronic Hepatic coma status: without hepatic coma Qualified Code(s): B18.2 - Chronic viral hepatitis C (6) Chronic back pain Qualifiers: Back pain location: low back pain Back pain laterality: midline Sciatica presence: with sciatica Sciatica laterality: sciatica of right side Qualified Code(s): M54.41 - Lumbago with sciatica, right side; G89.29 - Other chronic pain (8) HTN (hypertension) Qualifiers: Hypertension type: essential hypertension Qualified Code(s): I10 - Essential (primary) hypertension
[2018-10-18] MEDS ORDERED: *HR* HYDROcodone/Acet 5/325 mg TABLET PO PRN (10:09)
[2018-10-18 11:01] VITALS: BP 119/73
--- NOTE | 2018-10-18 11:27 | Discharge Summary ---
- NOTES TO OUTPATIENT PROVIDER Notes to Outpatient Provider: SI has not been taking medications- had pseudoseizure in ED has not been taking medications- positive for amphetamines Orders not resulted at time of discharge: Pending orders 10/19/18 04:00 Basic Metabolic Panel AM 0400 Complete Blood Count w/o Diff [HEME] AM 0400 Date of Encounter: 10/18/18 Time of Encounter: 11:23 - Discharge Diagnosis (1) Priapism Priority: Secondary Status: Resolved (2) Hepatitis C Priority: Secondary Status: Chronic Qualifiers: Viral hepatitis chronicity: chronic Hepatic coma status: without hepatic coma Qualified Code(s): B18.2 - Chronic viral hepatitis C (3) Substance abuse Priority: Secondary Status: Chronic (4) Suicidal ideation Priority: Primary Status: Acute (5) Seizures Priority: Secondary Status: Chronic (6) Chronic back pain Priority: Secondary Status: Chronic Qualifiers: Back pain location: low back pain Back pain laterality: midline Sciatica presence: with sciatica Sciatica laterality: sciatica of right side Qualified Code(s): M54.41 - Lumbago with sciatica, right side; G89.29 - Other chronic pain (7) Right sciatic nerve pain Priority: Secondary Status: Chronic (8) HTN (hypertension) Priority: Secondary Status: Chronic Qualifiers: Hypertension type: essential hypertension Qualified Code(s): I10 - Essential (primary) hypertension (9) Anxiety and depression Priority: Secondary Status: Chronic (10) Dysfunctional grieving Priority: Secondary Status: Chronic (11) Tobacco abuse Priority: Secondary Status: Chronic (12) Alcohol abuse Priority: Secondary Status: Chronic Hospital course: Mr. Sarabia is a 33 year old male medical history of hypertension hepatitis C seizures bipolar depression PTSD prior suicide attempts with previous psychiatric hospitalization current tobacco abuse alcohol abuse and drug abuse presented to [facility] ED with complaints of suicidal ideations. Patient has been feeling suicidal for the past week however he has had feelings of increased hopelessness over the past few days after he broke up with his girlfriend. Originally had planned to slit his wrist. Presented to the ER with the above complaints. In the ER lab work was unremarkable patient's tox screen was positive for amphetamines alcohol level was elevated as well. While in the ER patient did have an episode of pseudoseizure is Depakote level was low and patient does state that he has not been taking any of his medications. Patient was pink slipped and has been admitted for further evaluation. During this admission patient has not demonstrated any more seizure activity or signs and symptoms of withdrawal. He continued to express ideals of harming himself however he did not express a plan. He was seen by psychiatry who recommended further inpatient psychiatric treatment. He is hemodynamically stable and is ready for discharged to at this time. - Time Spent with Patient Total time spent providing and/or coordinating discharge services: - Discharge Medications Prescriptions: Continued Divalproex (12 HR) [Depakote (12 HR)] 2,000 mg PO DAILY Atomoxetine [Strattera] 40 mg PO DAILY Benztropine [Cogentin] 0.5 mg PO DAILY Lisinopril [Zestril] 5 mg PO DAILY OLANZapine [Zyprexa] 25 mg PO DAILY Home Medications: Atomoxetine [Strattera] 40 mg PO DAILY 10/16/18 [History] Benztropine [Cogentin] 0.5 mg PO DAILY 10/16/18 [History] Divalproex (12 HR) [Depakote (12 HR)] 2,000 mg PO DAILY 10/16/18 [History] Lisinopril [Zestril] 5 mg PO DAILY 10/16/18 [History] OLANZapine [Zyprexa] 25 mg PO DAILY 10/16/18 [History] Allergies/Adverse Reactions: Allergy/AdvReac Type Severity Reaction Status Date / Time Bee Pollen Allergy Anaphylaxis Verified 08/01/18 06:23 Date of admission: 10/16/18 22:26 Primary care physician: PCP NONE Consults: 10/16/18 23:59 Consult to Psychiatry [CONS] Routine Consulting Provider: Psychiatry [place] Reason consult: [place] slip on chart Sitter/1:1 Other Other reason and/or additional details: Extremely suicidal [place] Slip initiated date and time: 10/16/18 at 15:23 Call Completed: Yes 10/17/18 00:09 Consult to Associate Creative Director [CONS] Routine Reason for SW Consult: Patient is severely depressed and suicidal. Blood alcohol level is high in ED. Please assess for possible home/rehabilitation/counseling/support services for post-discharge planning. 10/17/18 00:16 Consult to Occupational Therapy [CONS] Routine Comment: Evaluate, develop and implement POC Reason for Consult: Patient suffers from severe back pain r/t bulging and herniated discs. Patient also has sciatic pain down right leg. Please assess patient for ambulation strength, stability, safety, and possible rehabilitation needs for post-discharge planning. Does patient have active BEDREST order?: No Is patient medically & hemodynamically stable?: Yes Patient assessed for mobility or mobilized this visit?: No Consult to Physical Therapy [CONS] Routine Comment: Evaluate, develop and implement POC Reason for Consult: Patient suffers from severe back pain r/t bulging and herniated discs. Patient also has sciatic pain down right leg. Please assess patient for ambulation strength, stability, safety, and possible rehabilitation needs for post-discharge planning. Does patient have active BEDREST order?: No Is patient medically & hemodynamically stable?: Yes Patient assessed for mobility or mobilized this visit?: No Discharging clinician: Raysa Wagner Anticipated date of discharge: 10/18/18 - Constitutional Vitals: Temp Pulse Resp BP Pulse Ox 98.4 F 88 14 119/73 96 10/18/18 11:00 10/18/18 11:00 10/18/18 11:00 10/18/18 11:00 10/18/18 11:00 General appearance: Present: cooperative, A&O X 3, obese, severe distress (Emotional distress w/suicidal ideation and hopelessness), answers questions appropriately Exam: Skin: Free of rash and discoloration. Eyes: Sclera is white. There is no discharge from eyes. ENMT: Oral/pharyngeal mucosa is normal in appearance. There is no discharge f rom nose or ears. Respiratory: Normal breath sounds with no crackles and wheezes bilaterally. CV: Heart is regular with no gallop or murmur. GI: Abdomen is flat and soft with no palpable mass or visceromegaly. : There is no tenderness in patient's flanks bilaterally. Neuro exam: He has good strength in upper and lower extremities. He has normal eye movements. Psychiatric: He has normal affect. His thought process is appropriate to the situation. - Patient Status Disposition: Transfer Psychiatric Hosp Condition: Fair Functional capacity at discharge: independent ambulation Overall status at discharge: patient is back to baseline - Discharge Instructions Follow Up With: NONE,PCP [Primary Care Provider] - - Diet and Activity Activity: increase activity as tolerated Diet: advance to your usual diet
--- NOTE | 2018-10-19 11:09 | Electrocardiograph Report ---
[address] [address] Test Date: 2018-10-18 Pat Name: Paco Sarabia Department: 113 Room: 3B33 Gender: M Head Of Biology: : 1985 Requested By: Raysa Wagner Order Number: [id number] Reading MD: Tien Martinez Measurements Intervals Sandy Rate: 76 P: 37 KS: 139 QRS: 61 QRSD: 93 T: 41 QT: 359 QTc: 389 Interpretive Statements SINUS RHYTHM Electronically Signed On 10-19-2018 11:07:54 EDT by Tien Martinez
== END 2018-10-18 14:32 ==
LOC: 3BNU 14:43 → EMEROOARM 14:43 → 3BNU 23:30
PROVIDERS: ADMIT Internal Medicine Nephrology; ATTEND Internal Medicine Nephrology

== ENCOUNTER 2018-10-18 14:33 | Inpatient (IN) ==
[2018-10-18] MEDS ORDERED: Haloperidol Lactate 5 MG/ML VIAL IM PRN (15:45)
[2018-10-18] MEDS ORDERED: MOM Conc 10 ML UD.LIQ PO PRN (15:45)
[2018-10-18] MEDS ORDERED: *HR* LORazepam 1 MG TABLET PO PRN (15:45)
[2018-10-18] MEDS ORDERED: Mag Hydrox/Al Hydrox/Simeth 30 ML UDC PO PRN (15:45)
[2018-10-18] MEDS ORDERED: *HR* LORazepam 2 MG/ML VIAL IM PRN (15:45)
[2018-10-18] MEDS ORDERED: *HR* HYDROcodone/Acet 5/325 mg TABLET PO PRN (15:53)
[2018-10-18] MEDS: OLANZapine 10 MG TAB.RAPDIS PO SCH (22:23)
[2018-10-19] MEDS: Divalproex (12 HR) 500 MG TABLET PO SCH (09:50)
[2018-10-19] MEDS: Vitamin B Complex/Vit C/Vit E 1 EACH TABLET PO SCH (09:50)
[2018-10-19] MEDS: Nicotine 21 MG PATCH.TD24 TD SCH (09:50)
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
[2018-10-19] MEDS: Acetaminophen 325 MG TABLET PO PRN (16:39)
[2018-10-19] MEDS: hydrOXYzine pamoate 25 MG CAPSULE PO PRN ×2 (16:58→20:30)
[2018-10-19] MEDS: OLANZapine 10 MG TAB.RAPDIS PO SCH (20:30)
[2018-10-20] MEDS: Nicotine 21 MG PATCH.TD24 TD SCH (08:49)
[2018-10-20] MEDS: Divalproex (12 HR) 500 MG TABLET PO SCH (08:49)
[2018-10-20] MEDS: Vitamin B Complex/Vit C/Vit E 1 EACH TABLET PO SCH (08:49)
--- NOTE | 2018-10-20 09:38 | Psychiatry Progress Note ---
Date of Encounter: 10/20/18 Time of Encounter: 09:30 Subjective Interval history: Mr. Sarabia was seen today in his room resting comfortably. He reports that he did not sleep well last night and was "up and down" all night. Staff reports he was in his bed throughout much of the day yesterday which may be contributing to his difficulty sleeping through the night. He admits to SI without any plan or intent at this time. He denies HI, AH or VH. He states he has not noticed any benefit from restarting his home medications and was inquiring about other medications for his depression. We discussed augmentation strategies including wellbutrin and Sertraline. Given patients history of possible seizure activity, he was agreeable to trial of Sertraline over Wellbutrin. His 72 hour hold is up today and he has agreed to sign in voluntarily. Review of Systems Psychiatric: Reports: depression, suicidal ideation, hopelessness. Denies: anxiety, abnormal sleep pattern, homicidal ideation, auditory hallucinations, visual hallucinations Results - Vital Signs Vital Signs: Temp Pulse Resp BP Pulse Ox 98.3 F 95 18 120/83 98 10/20/18 09:00 10/20/18 09:00 10/20/18 09:00 10/20/18 09:00 10/20/18 09:00 Assessment and Plan (1) Bipolar disorder Current visit: Yes Status: Acute Plan: Continue hospitalization, Suicide Precautions per unit protocol, Encourage participation in unit milieu, Group Therapy, Monitor sleep, Monitor appetite Additional Plan: Depakote level checked. Also ordered lipid panel and hemoglobin A1C as patient is on zyprexa. Will start Sertraline 25mg for augmentation of depression. Risks, benefits, side effects, alternatives discussed w/pt: Yes Patient agreeable to treatment: Yes Qualifiers: Active/Remission status: currently active Current bipolar episode type: depressed Current episode severity: severe Psychotic features: without psychotic features Qualified Code(s): F31.4 - Bipolar disorder, current episode depressed, severe, without psychotic features (2) Suicidal ideations Current visit: Yes Status: Acute Plan: Continue hospitalization, Suicide Precautions per unit protocol, Encourage participation in unit milieu, Group Therapy, Monitor sleep, Monitor appetite Risks, benefits, side effects, alternatives discussed w/pt: Yes Patient agreeable to treatment: Yes Consult Discharge Plan - Plan Referrals: NONE,PCP [Primary Care Provider] - - Attending Attestation I examined this patient and my medical decision-making was reviewed with the Resident Physician. I agree with the documented findings, disposition and treatment plan as described except to the extent set forth below. Agree with mental status Agree with Plan Psychiatry Exam - Constitutional Vitals: Temp Pulse Resp BP Pulse Ox 98.3 F 95 18 120/83 98 10/20/18 09:00 10/20/18 09:00 10/20/18 09:00 10/20/18 09:00 10/20/18 09:00 General appearance: age & developmentally appropriate, unkempt - Musculoskeletal Gait: normal Station: relaxed Strength & Tone: normal for patient - Psychiatric Patient Orientation: Yes Person, Yes Time, Yes Place, Yes Circumstance Level of alertness: Alert Behavior: calm, cooperative Psychomotor activity: Normal Eye Contact: Maintains Eye Contact Mood Description: Depressed Patient description of mood: "depressed" Affect description: congruent with mood, blunted Speech Volume: Normal Speech pattern: normal rate, normal rhythm, normal tone Language & Vocabulary: consistent with education Thought Process: Intact, Logical, Linear, Goal Oriented Thought Content: Yes Suicidal ideation, No Homicidal ideation, No Paranoid delusion Perceptual Disturbances: No Reacting to internal stimuli, No Auditory hallucinations, No Visual hallucinations Attention Span Ability: Capable of Focused Attention, Capable of Sustained Attention Memory Description: Grossly Intact Patient Reliability: Reliable Historian Fund of knowledge: Yes average Intelligence Estimate: Average Judgment: Limited Insight: Minimal
[2018-10-20 10:46] LABS: Chol/HDL Ratio 4.3 (0-4.9)
[2018-10-20 11:16] LABS: Estimated Average Glucose 123 mg/dl
[2018-10-20] MEDS: Acetaminophen 325 MG TABLET PO PRN (15:45)
[2018-10-20] MEDS: hydrOXYzine pamoate 25 MG CAPSULE PO PRN ×2 (17:26→20:44)
[2018-10-20] MEDS: OLANZapine 10 MG TAB.RAPDIS PO SCH (20:42)
[2018-10-21] MEDS: Divalproex (12 HR) 500 MG TABLET PO SCH (09:28)
[2018-10-21] MEDS: Nicotine 21 MG PATCH.TD24 TD SCH (09:29)
[2018-10-21] MEDS: Vitamin B Complex/Vit C/Vit E 1 EACH TABLET PO SCH (09:29)
--- NOTE | 2018-10-21 10:26 | Psychiatry Progress Note ---
Date of Encounter: 10/21/18 Time of Encounter: 09:00 Subjective Interval history: Mr. Sarabia was seen up and walking around the unit this morning socializing appropriately. He states that he did not sleep well last night saying "I tossed and turned." When asked about history of difficulty sleeping he admits to restless sleep for the past 6 months but does not know of any inciting event contributing to this restlessness. He was given Benadryl 50mg last night for sleep. Mr. Sarabia continues to describe having back pain which is worse when seated. He describes his mood today as "a little better" but requests to be switched off the Sertraline as he said "I've never noticed any difference on it. " He requests to start Wellbutrin but after discussing risks and benefits given his possible history of seizures, he opted to try Duloxetine instead. He denies SI, HI, AH or VH. He reports he has been working on reconciliation with his girlfriend but still remains hopeful to discharge to [facility] if possible as things with his girlfriend are still unstable. Given his current unstable housing situation and fleeting SI which he reported to staff yesterday evening, Mr. Sarabia would benefit from continued inpatient hospitalization on this unit. Review of Systems Psychiatric: Reports: depression, suicidal ideation, hopelessness. Denies: anxiety, abnormal sleep pattern, homicidal ideation, auditory hallucinations, visual hallucinations Results - Vital Signs Vital Signs: Temp Pulse Resp BP Pulse Ox 97.9 F 88 18 118/85 98 10/21/18 08:55 10/21/18 08:55 10/21/18 08:55 10/21/18 08:55 10/21/18 08:55 - Labs Labs: Laboratory Results - last 24 hr 10/20/18 10/20/18 10/20/18 10:05 10:05 10:05 Est Mean Plasma Glucose 123 Hemoglobin A1c 5.9 H Triglycerides 172 H Cholesterol 167 LDL Cholesterol, Calc 94 VLDL Cholesterol, Calc 34 H HDL Cholesterol 39 L Cholesterol/HDL Ratio 4.3 Valproic Acid 104 H* Assessment and Plan (1) Bipolar disorder Current visit: Yes Status: Acute Plan: Continue hospitalization, Encourage participation in unit milieu, Group Therapy, Monitor sleep, Monitor appetite Risks, benefits, side effects, alternatives discussed w/pt: Yes Patient agreeable to treatment: Yes Qualifiers: Active/Remission status: currently active Current bipolar episode type: depressed Current episode severity: severe Psychotic features: without psychotic features Qualified Code(s): F31.4 - Bipolar disorder, current episode depressed, severe, without psychotic features (2) Suicidal ideations Current visit: Yes Status: Acute Plan: Continue hospitalization, Suicide Precautions per unit protocol, Encourage participation in unit milieu, Group Therapy, Monitor sleep, Monitor appetite Additional Plan: Discontinue Sertraline 25mg per patient request. Start Duloxetine 30mg with hopes of improving patients depression and added benefit of addressing some of his underlying neuropathic pain. Patient was informed of risks and benefits of Duloxetine as well as most common side effects including and has agreed to trial of Duloxetine. Will monitor for side effects. Risks, benefits, side effects, alternatives discussed w/pt: Yes Patient agreeable to treatment: Yes Consult Discharge Plan - Plan Referrals: NONE,PCP [Primary Care Provider] - - Attending Attestation I examined this patient and my medical decision-making was reviewed with the Resident Physician. I agree with the documented findings, disposition and treatment plan as described except to the extent set forth below. Agree with mental status Agree with Plan Psychiatry Exam - Constitutional Vitals: Temp Pulse Resp BP Pulse Ox 97.9 F 88 18 118/85 98 10/21/18 08:55 10/21/18 08:55 10/21/18 08:55 10/21/18 08:55 10/21/18 08:55 General appearance: age & developmentally appropriate, well-nourished, unkempt - Musculoskeletal Gait: normal Station: relaxed Strength & Tone: normal for patient - Psychiatric Patient Orientation: Yes Person, Yes Time, Yes Place, Yes Circumstance Level of alertness: Alert Behavior: cooperative (minimally cooperative to interview) Psychomotor activity: Normal Eye Contact: Maintains Eye Contact Mood Description: Depressed Patient description of mood: "a little better" Affect description: blunted Speech Volume: Normal Speech pattern: normal rate, normal rhythm, normal tone, spontaneous Language & Vocabulary: consistent with education Thought Process: Intact, Logical, Linear, Goal Oriented Thought Content: Yes Intact, No Suicidal ideation, No Homicidal ideation, No Paranoid delusion Perceptual Disturbances: No Reacting to internal stimuli, No Auditory hallucinations, No Visual hallucinations Attention Span Ability: Capable of Focused Attention, Capable of Sustained Attention Memory Description: Grossly Intact Patient Reliability: Reliable Historian Fund of knowledge: Yes average Intelligence Estimate: Average Judgment: Limited Insight: Partial
[2018-10-21] MEDS: Acetaminophen 325 MG TABLET PO PRN (14:21)
[2018-10-21] MEDS: Ibuprofen 400 MG TABLET PO PRN (18:31)
[2018-10-21] MEDS: OLANZapine 10 MG TAB.RAPDIS PO SCH (20:52)
[2018-10-21] MEDS: hydrOXYzine pamoate 25 MG CAPSULE PO PRN (20:52)
[2018-10-22] MEDS: Divalproex (12 HR) 500 MG TABLET PO SCH (08:52)
[2018-10-22] MEDS: Vitamin B Complex/Vit C/Vit E 1 EACH TABLET PO SCH (08:53)
[2018-10-22] MEDS: Nicotine 21 MG PATCH.TD24 TD SCH (08:53)
--- NOTE | 2018-10-22 09:28 | Psychiatry Progress Note ---
Date of Encounter: 10/22/18 Time of Encounter: 07:25 Subjective Interval history: Patient is doing better. His mood is more stable. He reports he is tolerating the new medications well. He denies current suicidal or homicidal thoughts ideations or plans. He is not having any psychotic symptoms. Review of Systems Psychiatric: Reports: depression, hopelessness. Denies: anxiety, abnormal sleep pattern, suicidal ideation, homicidal ideation, auditory hallucinations, visual hallucinations Results - Vital Signs Vital Signs: Temp Pulse Resp BP Pulse Ox 97.6 F 84 16 116/81 98 10/22/18 08:57 10/22/18 08:57 10/22/18 08:57 10/22/18 08:57 10/22/18 08:57 Assessment and Plan (1) Bipolar disorder Current visit: Yes Status: Acute Plan: Continue hospitalization, Close observation, Suicide Precautions per unit protocol, Encourage participation in unit milieu, Group Therapy, Monitor sleep, Monitor appetite Additional Plan: He should be seen today by [facility] for possible placement there. Encourage group attendance. Continue medications. Risks, benefits, side effects, alternatives discussed w/pt: Yes Patient agreeable to treatment: Yes Qualifiers: Active/Remission status: currently active Current bipolar episode type: depressed Current episode severity: severe Psychotic features: without psychotic features Qualified Code(s): F31.4 - Bipolar disorder, current episode depressed, severe, without psychotic features (2) Suicidal ideations Current visit: Yes Status: Acute Risks, benefits, side effects, alternatives discussed w/pt: Yes Patient agreeable to treatment: Yes Consult Discharge Plan - Plan Referrals: NONE,PCP [Primary Care Provider] - Psychiatry Exam - Constitutional Vitals: Temp Pulse Resp BP Pulse Ox 97.6 F 84 16 116/81 98 10/22/18 08:57 10/22/18 08:57 10/22/18 08:57 10/22/18 08:57 10/22/18 08:57 General appearance: age & developmentally appropriate, well-groomed, well- nourished - Musculoskeletal Gait: normal Station: relaxed Strength & Tone: normal for patient - Psychiatric Patient Orientation: Yes Person, Yes Time, Yes Place, Yes Circumstance Level of alertness: Alert Behavior: calm, cooperative Psychomotor activity: Normal Eye Contact: Maintains Eye Contact Mood Description: Depressed Patient description of mood: A little better Affect description: congruent with mood, full range Speech Volume: Normal Speech pattern: normal rate, normal rhythm, normal tone, fluent, spontaneous Language & Vocabulary: consistent with education Thought Process: Linear, Goal Oriented Thought Content: No Suicidal ideation, No Homicidal ideation, No Overt delusions Perceptual Disturbances: No Auditory hallucinations, No Visual hallucinations Attention Span Ability: Capable of Focused Attention Memory Description: Grossly Intact Patient Reliability: Reliable Historian Fund of knowledge: Yes abstraction ability, Yes aware of current events Intelligence Estimate: Average Judgment: Good Insight: Full
[2018-10-22] MEDS: Ibuprofen 400 MG TABLET PO PRN (12:09)
[2018-10-22] MEDS: Acetaminophen 325 MG TABLET PO PRN ×2 (15:52→20:03)
[2018-10-22] MEDS: hydrOXYzine pamoate 25 MG CAPSULE PO PRN (15:53)
[2018-10-22] MEDS: OLANZapine 10 MG TAB.RAPDIS PO SCH (20:03)
[2018-10-23] MEDS: Divalproex (12 HR) 500 MG TABLET PO SCH (08:25)
[2018-10-23] MEDS: Vitamin B Complex/Vit C/Vit E 1 EACH TABLET PO SCH (08:25)
[2018-10-23] MEDS: Ibuprofen 400 MG TABLET PO PRN ×2 (08:26→17:53)
[2018-10-23] MEDS: Nicotine 21 MG PATCH.TD24 TD SCH (08:27)
--- NOTE | 2018-10-23 10:21 | Psychiatry Progress Note ---
Date of Encounter: 10/23/18 Time of Encounter: 09:00 Subjective Interval history: Mr. Sarabia was seen today in Dr. Baker office. He reports his mood has been improving but continues to endorse suicidal ideations without current plan. He denies noticing any side effects associated with his medications. [facility] has declined Mr. Sarabia at this time, so we discussed the possiblity of [facility] for rehab. He is interested in [facility] and would like to pursue admission. He reports he has reconciled with his girlfriend but is not wanting to move back in with her at this time. Review of Systems Psychiatric: Reports: depression, suicidal ideation. Denies: anxiety, abnormal sleep pattern, homicidal ideation, auditory hallucinations, visual hallucinations Results - Vital Signs Vital Signs: Temp Pulse Resp BP Pulse Ox 98.5 F 89 16 114/81 89 10/23/18 08:37 10/23/18 08:37 10/23/18 08:37 10/23/18 08:37 10/23/18 08:37 Assessment and Plan (1) Bipolar disorder Current visit: Yes Status: Acute Plan: Continue hospitalization, Encourage participation in unit milieu, Group Therapy, Monitor sleep, Monitor appetite Additional Plan: Continue to work with social work to get patient placed at [facility]. Patient still endorsing SI and would be unsafe to discharge at this time, will benefit from continued inpatient hospitalization. Risks, benefits, side effects, alternatives discussed w/pt: Yes Patient agreeable to treatment: Yes Qualifiers: Active/Remission status: currently active Current bipolar episode type: depressed Current episode severity: severe Psychotic features: without psychotic features Qualified Code(s): F31.4 - Bipolar disorder, current episode depressed, severe, without psychotic features (2) Suicidal ideations Current visit: Yes Status: Acute Plan: Continue hospitalization, Suicide Precautions per unit protocol, Encourage participation in unit milieu, Group Therapy, Monitor sleep, Monitor appetite Risks, benefits, side effects, alternatives discussed w/pt: Yes Patient agreeable to treatment: Yes Consult Discharge Plan - Plan Referrals: NONE,PCP [Primary Care Provider] - - Attending Attestation I examined this patient and my medical decision-making was reviewed with the Resident Physician. I agree with the documented findings, disposition and treatment plan as described except to the extent set forth below. Agree with above. Referral made to [facility] since [facility] turned him down. Psychiatry Exam - Constitutional Vitals: Temp Pulse Resp BP Pulse Ox 98.5 F 89 16 114/81 89 10/23/18 08:37 10/23/18 08:37 10/23/18 08:37 10/23/18 08:37 10/23/18 08:37 General appearance: age & developmentally appropriate, well-groomed, well- nourished - Musculoskeletal Gait: normal Station: relaxed Strength & Tone: normal for patient - Psychiatric Patient Orientation: Yes Person, Yes Time, Yes Place, Yes Circumstance Level of alertness: Alert Behavior: calm, cooperative Psychomotor activity: Normal Eye Contact: Maintains Eye Contact Mood Description: Euthymic/stable Patient description of mood: "Alright" Affect description: euthymic Speech Volume: Normal Speech pattern: normal rate, normal rhythm, normal tone, fluent Language & Vocabulary: consistent with education Thought Process: Intact, Logical, Linear, Goal Oriented Thought Content: Yes Intact, Yes Suicidal ideation, No Homicidal ideation, No Paranoid delusion Perceptual Disturbances: No Reacting to internal stimuli, No Auditory hallucinations, No Visual hallucinations Attention Span Ability: Capable of Focused Attention, Capable of Sustained Attention Memory Description: Grossly Intact Patient Reliability: Reliable Historian Fund of knowledge: Yes average Intelligence Estimate: Average Judgment: Limited Insight: Partial
[2018-10-23] MEDS: Acetaminophen 325 MG TABLET PO PRN ×2 (12:35→20:31)
[2018-10-23] MEDS: hydrOXYzine pamoate 25 MG CAPSULE PO PRN (13:54)
[2018-10-23] MEDS: OLANZapine 10 MG TAB.RAPDIS PO SCH (20:31)
[2018-10-24] MEDS: Nicotine 21 MG PATCH.TD24 TD SCH (08:45)
[2018-10-24] MEDS: Vitamin B Complex/Vit C/Vit E 1 EACH TABLET PO SCH (08:46)
[2018-10-24] MEDS: Ibuprofen 400 MG TABLET PO PRN ×2 (08:46→17:55)
[2018-10-24] MEDS: Divalproex (12 HR) 500 MG TABLET PO SCH (08:46)
--- NOTE | 2018-10-24 10:22 | Psychiatry Progress Note ---
Date of Encounter: 10/24/18 Time of Encounter: 09:55 Subjective Interval history: Patient says he is feeling better. He reports less suicidal ideations. He denies auditory or visual hallucinations. He is tolerating the medications. His pain is somewhat controlled with the Cymbalta. He is hopeful [facility] will accept him. Review of Systems Psychiatric: Reports: depression. Denies: anxiety, abnormal sleep pattern, homicidal ideation, auditory hallucinations, visual hallucinations Results - Vital Signs Vital Signs: Temp Pulse Resp BP Pulse Ox 97.8 F 95 18 117/79 97 10/24/18 09:00 10/24/18 09:00 10/24/18 09:00 10/24/18 09:00 10/24/18 09:00 Assessment and Plan (1) Bipolar disorder Current visit: Yes Status: Acute Plan: Continue hospitalization, Close observation, Suicide Precautions per unit protocol, Encourage participation in unit milieu, Group Therapy, Monitor sleep, Monitor appetite Additional Plan: Continue current medications, encourage group therapy, therapist working on discharge planning. Risks, benefits, side effects, alternatives discussed w/pt: Yes Patient agreeable to treatment: Yes Qualifiers: Active/Remission status: currently active Current bipolar episode type: depressed Current episode severity: severe Psychotic features: without psychotic features Qualified Code(s): F31.4 - Bipolar disorder, current episode depressed, severe, without psychotic features (2) Suicidal ideations Current visit: Yes Status: Acute Risks, benefits, side effects, alternatives discussed w/pt: Yes Patient agreeable to treatment: Yes Consult Discharge Plan - Plan Referrals: NONE,PCP [Primary Care Provider] - Psychiatry Exam - Constitutional Vitals: Temp Pulse Resp BP Pulse Ox 97.8 F 95 18 117/79 97 10/24/18 09:00 10/24/18 09:00 10/24/18 09:00 10/24/18 09:00 10/24/18 09:00 General appearance: age & developmentally appropriate, well-groomed, well- nourished - Musculoskeletal Gait: normal Station: relaxed Strength & Tone: normal for patient - Psychiatric Patient Orientation: Yes Person, Yes Time, Yes Place Level of alertness: Alert Behavior: calm, cooperative Psychomotor activity: Normal Eye Contact: Maintains Eye Contact Mood Description: Depressed Patient description of mood: Better Affect description: blunted Speech Volume: Normal Speech pattern: normal rate, normal rhythm, normal tone, fluent, spontaneous Language & Vocabulary: consistent with education Thought Process: Linear, Goal Oriented Thought Content: No Suicidal ideation, No Homicidal ideation, No Overt delusions Perceptual Disturbances: No Auditory hallucinations, No Visual hallucinations Attention Span Ability: Capable of Focused Attention Memory Description: Grossly Intact Patient Reliability: Reliable Historian Fund of knowledge: Yes abstraction ability, Yes aware of current events Intelligence Estimate: Average Judgment: Fair Insight: Partial
[2018-10-24] MEDS: Acetaminophen 325 MG TABLET PO PRN ×2 (13:02→21:04)
[2018-10-24] MEDS: hydrOXYzine pamoate 25 MG CAPSULE PO PRN (16:07)
[2018-10-24] MEDS: OLANZapine 10 MG TAB.RAPDIS PO SCH (21:04)
[2018-10-25] MEDS: Nicotine 21 MG PATCH.TD24 TD SCH (09:00)
[2018-10-25] MEDS: Divalproex (12 HR) 500 MG TABLET PO SCH (09:01)
[2018-10-25] MEDS: Ibuprofen 400 MG TABLET PO PRN ×2 (09:01→17:32)
[2018-10-25] MEDS: Vitamin B Complex/Vit C/Vit E 1 EACH TABLET PO SCH (09:01)
--- NOTE | 2018-10-25 09:19 | Psychiatry Progress Note ---
Date of Encounter: 10/25/18 Time of Encounter: 08:20 Subjective Interval history: Patient reports that he is doing better with his mental health. He denies any current suicidal ideations. He said his mood is more stable. He feels more hopeful. He denies anxiety. He does report ongoing back pain. Review of Systems Psychiatric: Reports: depression. Denies: anxiety, abnormal sleep pattern, homicidal ideation, auditory hallucinations, visual hallucinations Results - Vital Signs Vital Signs: Temp Pulse Resp BP Pulse Ox 98.4 F 86 18 120/71 97 10/24/18 20:34 10/24/18 20:34 10/24/18 20:34 10/24/18 20:34 10/24/18 20:34 Assessment and Plan (1) Bipolar disorder Current visit: Yes Status: Acute Plan: Continue hospitalization, Close observation, Suicide Precautions per unit protocol, Encourage participation in unit milieu, Group Therapy, Monitor sleep, Monitor appetite Additional Plan: Continue current medication. Encourage group therapy. Will place a medical consult for his ongoing back pain. Risks, benefits, side effects, alternatives discussed w/pt: Yes Patient agreeable to treatment: Yes Qualifiers: Active/Remission status: currently active Current bipolar episode type: depressed Current episode severity: severe Psychotic features: without psychotic features Qualified Code(s): F31.4 - Bipolar disorder, current episode depressed, severe, without psychotic features (2) Suicidal ideations Current visit: Yes Status: Acute Risks, benefits, side effects, alternatives discussed w/pt: Yes Patient agreeable to treatment: Yes Consult Discharge Plan - Plan Referrals: NONE,PCP [Primary Care Provider] - Psychiatry Exam - Constitutional Vitals: Temp Pulse Resp BP Pulse Ox 98.4 F 86 18 120/71 97 10/24/18 20:34 10/24/18 20:34 10/24/18 20:34 10/24/18 20:34 10/24/18 20:34 General appearance: age & developmentally appropriate, well-groomed, well- nourished - Musculoskeletal Gait: normal Station: relaxed Strength & Tone: normal for patient - Psychiatric Patient Orientation: Yes Person, Yes Time, Yes Place Level of alertness: Alert Behavior: calm, cooperative Psychomotor activity: Normal Eye Contact: Maintains Eye Contact Mood Description: Euthymic/stable Patient description of mood: Better Affect description: congruent with mood, full range Speech Volume: Normal Speech pattern: normal rate, normal rhythm, normal tone, fluent, spontaneous Language & Vocabulary: consistent with education Thought Process: Linear, Goal Oriented Thought Content: No Suicidal ideation, No Homicidal ideation, No Overt delusions Perceptual Disturbances: No Auditory hallucinations, No Visual hallucinations Attention Span Ability: Capable of Focused Attention Memory Description: Grossly Intact Patient Reliability: Reliable Historian Fund of knowledge: Yes abstraction ability, Yes aware of current events Intelligence Estimate: Average Judgment: Fair Insight: Partial
[2018-10-25] MEDS: Acetaminophen 325 MG TABLET PO PRN ×2 (12:46→20:59)
[2018-10-25] MEDS: hydrOXYzine pamoate 25 MG CAPSULE PO PRN ×3 (13:44→21:00)
[2018-10-25] MEDS: OLANZapine 10 MG TAB.RAPDIS PO SCH (20:59)
[2018-10-26] MEDS: Vitamin B Complex/Vit C/Vit E 1 EACH TABLET PO SCH (08:49)
[2018-10-26] MEDS: Divalproex (12 HR) 500 MG TABLET PO SCH (08:49)
[2018-10-26] MEDS: Nicotine 21 MG PATCH.TD24 TD SCH (08:50)
[2018-10-26] MEDS: Ibuprofen 400 MG TABLET PO PRN ×2 (09:33→17:27)
--- NOTE | 2018-10-26 09:52 | Psychiatry Progress Note ---
Date of Encounter: 10/26/18 Time of Encounter: 09:48 Subjective Interval history: Client states he is doing pretty well but that his anxiety is still really bad. Claims Vistaril is not helping him. Cannot take benzos as he is hopefully going to the [facility]. Has tried Buspar in the past. Discussed restarting this but he would prefer to try going up on the Cymbalta first. Has a history of priapism with multiple meds. An increase in the dose of Cymbalta puts him at increased risk of this but so does starting new meds. Seems to be tolerating current dose of Cymbalta without issue so safest move would likely be adjusting dose of this med first. Client is aware of the risks but states he needs something more for anxiety. Mood is otherwise doing well. Denies SI/HI. Plan is to discharge to the [facility] pending acceptance and bed availability. Review of Systems Constitutional: Denies: fever, chills, weakness, weight change Eyes: Denies: eye pain, vision change Ears, Nose, Throat: Denies: ear pain, throat pain, dental pain, hearing loss, congestion Cardiovascular: Denies: chest pain, palpitations, dyspnea on exertion Respiratory: Denies: cough, dyspnea, wheezes Gastrointestinal: Denies: abdominal pain, nausea, vomiting, diarrhea, constipation Musculoskeletal: Denies: joint swelling, joint pain Neurological: Denies: headache, weakness, numbness, memory loss Psychiatric: Reports: depression. Denies: anxiety, abnormal sleep pattern, homicidal ideation, auditory hallucinations, visual hallucinations Results - Vital Signs Vital Signs: Temp Pulse Resp BP Pulse Ox 98.7 F 85 18 123/76 97 10/25/18 21:00 10/25/18 21:00 10/25/18 21:00 10/25/18 21:00 10/25/18 21:00 Assessment and Plan (1) Bipolar disorder Current visit: Yes Status: Acute Plan: Continue hospitalization, Close observation, Suicide Precautions per unit protocol, Encourage participation in unit milieu, Group Therapy, Monitor sleep, Monitor appetite Risks, benefits, side effects, alternatives discussed w/pt: Yes Patient agreeable to treatment: Yes Qualifiers: Active/Remission status: currently active Current bipolar episode type: depressed Current episode severity: severe Psychotic features: without psychotic features Qualified Code(s): F31.4 - Bipolar disorder, current episode depressed, severe, without psychotic features Consult Discharge Plan - Plan Referrals: NONE,PCP [Primary Care Provider] - Psychiatry Exam - Constitutional Vitals: Temp Pulse Resp BP Pulse Ox 98.7 F 85 18 123/76 97 10/25/18 21:00 10/25/18 21:00 10/25/18 21:00 10/25/18 21:00 10/25/18 21:00 General appearance: age & developmentally appropriate, well-groomed, well- nourished - Musculoskeletal Gait: normal Station: relaxed Strength & Tone: normal for patient - Psychiatric Patient Orientation: Yes Person, Yes Time, Yes Place Level of alertness: Alert Behavior: calm, cooperative Psychomotor activity: Increased Eye Contact: Maintains Eye Contact Mood Description: Anxious Affect description: congruent with mood Speech Volume: Normal Speech pattern: normal rate, normal rhythm, normal tone, fluent, spontaneous Language & Vocabulary: consistent with education Thought Process: Linear Thought Content: No Suicidal ideation, No Homicidal ideation, No Overt delusions Perceptual Disturbances: No Auditory hallucinations, No Visual hallucinations Attention Span Ability: Capable of Focused Attention Memory Description: Grossly Intact Patient Reliability: Reliable Historian Fund of knowledge: Yes abstraction ability, Yes aware of current events Intelligence Estimate: Average Judgment: Fair Insight: Partial
[2018-10-26] MEDS: Acetaminophen 325 MG TABLET PO PRN ×2 (10:56→22:17)
[2018-10-26] MEDS: hydrOXYzine pamoate 25 MG CAPSULE PO PRN (18:32)
[2018-10-26] MEDS: OLANZapine 10 MG TAB.RAPDIS PO SCH (21:05)
[2018-10-27] MEDS: Vitamin B Complex/Vit C/Vit E 1 EACH TABLET PO SCH (08:50)
[2018-10-27] MEDS: Divalproex (12 HR) 500 MG TABLET PO SCH (08:50)
[2018-10-27] MEDS: Nicotine 21 MG PATCH.TD24 TD SCH (08:51)
[2018-10-27] MEDS: Ibuprofen 400 MG TABLET PO PRN (08:53)
--- NOTE | 2018-10-27 09:39 | Discharge Summary ---
Date of Encounter: 10/27/18 Time of Encounter: 09:32 Diagnosis - Discharge Diagnosis (1) Bipolar disorder Status: Acute Qualifiers: Active/Remission status: currently active Current bipolar episode type: depressed Current episode severity: severe Psychotic features: without psychotic features Qualified Code(s): F31.4 - Bipolar disorder, current episode depressed, severe, without psychotic features Medications - Discharge Medications Prescriptions: Benztropine [Cogentin] 0.5 mg PO DAILY #30 tablet DULoxetine [Cymbalta] 60 mg PO DAILY #60 capsule. Divalproex (12 HR) [Depakote (12 HR)] 2,000 mg PO DAILY #120 tablet. Atomoxetine [Strattera] 40 mg PO DAILY #30 capsule Lisinopril [Zestril] 5 mg PO DAILY #30 tablet OLANZapine [Zyprexa Zydis] 25 mg PO HS #90 tab.rapdis Ibuprofen [Ibu-200] 800 mg PO TID PRN 10/19/18 [History] Atomoxetine [Strattera] 40 mg PO DAILY #30 capsule 10/27/18 [Rx] Benztropine [Cogentin] 0.5 mg PO DAILY #30 tablet 10/27/18 [Rx] DULoxetine [Cymbalta] 60 mg PO DAILY #60 capsule. 10/27/18 [Rx] Divalproex (12 HR) [Depakote (12 HR)] 2,000 mg PO DAILY #120 tablet. 10/27/18 [Rx] Lisinopril [Zestril] 5 mg PO DAILY #30 tablet 10/27/18 [Rx] OLANZapine [Zyprexa Zydis] 25 mg PO HS #90 tab.rapdis 10/27/18 [Rx] Vitamin B Complex/Vit C/Vit E [Stresstab] 1 each PO DAILY tablet 10/27/18 [Rx] Allergy/AdvReac Type Severity Reaction Status Date / Time Bee Pollen Allergy Anaphylaxis Verified 10/19/18 22:04 Results Procedures and tests throughout hospitalization: Completed Lab Orders Category Date Time Status A1C [Hgb A1C] Routine Lab 10/20/18 10:05 Completed Lipid Panel Routine Lab 10/20/18 10:05 Completed Valproate Routine Lab 10/20/18 10:05 Completed Provider Date of admission: 10/18/18 14:33 Primary care physician: PCP NONE Consults: 10/25/18 09:19 Consult to Hospitalist [CONS] Routine Consulting Provider: Hospitalist Femi Reason for Consult: severe back pain. Call Completed: No Discharging clinician: Dulce Hu Psychiatry Exam - Constitutional Vitals: Temp Pulse Resp BP Pulse Ox 98.6 F 79 16 121/83 98 10/26/18 21:00 10/26/18 21:00 10/26/18 21:00 10/26/18 21:00 10/26/18 21:00 General appearance: age & developmentally appropriate, well-groomed, well- nourished - Musculoskeletal Gait: normal Station: relaxed Strength & Tone: normal for patient - Psychiatric Patient Orientation: Yes Person, Yes Time, Yes Place Level of alertness: Alert Behavior: calm, cooperative Psychomotor activity: Normal Eye Contact: Maintains Eye Contact Mood Description: Anxious Affect description: congruent with mood Speech Volume: Normal Speech pattern: normal rate, normal rhythm, normal tone, fluent, spontaneous Language & Vocabulary: consistent with education Thought Process: Linear, Goal Oriented Thought Content: No Suicidal ideation, No Homicidal ideation, No Overt delusions Perceptual Disturbances: No Auditory hallucinations, No Visual hallucinations Attention Span Ability: Capable of Focused Attention Memory Description: Grossly Intact Patient Reliability: Reliable Historian Fund of knowledge: Yes abstraction ability, Yes aware of current events Intelligence Estimate: Average Judgment: Fair Insight: Partial Hospital Course Hospital course: Mr. Sarabia is a 33 year old male who was admitted secondary to SI. He had been off of his mental health medications at the time of admission and was depressed after a break up with his girlfriend. He had also been abusing alcohol and was initially admitted to the medical floor to manage withdrawals. Once transferred to he was stabilized on a combination of medications including Depakote and Cymbalta with good clinical effect. Client has a long history of priapism with mental health medications and is aware of the risks of taking mental health medications. He understands when he needs to seek medical treatment and so far he is tolerating his current regimen without issue. Today he is being discharged to the [facility] for inpatient AOD treatment. Client is anxious but looking forward to taking this next step. He is future oriented. He is denying SI, intent, or plan and has been for the past few days. He has mostly been waiting on a rehab bed to become available. He is denying HI/AH/VH and feels safe for discharge. He has been eating and sleeping well. He has been attending groups. He has been cooperative with staff and his peers. A particularly manic, intrusive patient was admitted last night and client has been handling him well given his level of baseline anxiety. Total time spent with client greater than 30 minutes. Patient was educated of his diagnosis and the risks, benefits, and side effects of this treatment and alternative treatment options and was monitored for responsiveness and side effects. Mood, anxiety, sleep, appetite, and interest improved, as did future orientation. Self-harm thoughts subsided, thinking cleared, psychosis resolved, and mood stabilized. Patient was able to attend both individual and group therapy sessions as well as meeting with the psychiatrist daily and urged to discuss any medication or treatment issues or other concerns. The patient was educated primarily by verbal means about their diagnosis and manifestations in their life. The option for treatment including group and individual therapy programming was offered to the patient in the use of medications with all their potential risks, benefits, and side effects were discussed with the patient at length. The patient was given the opportunity to ask questions and was noted to participate in the treatment in the planning process. The patient felt ready and eager to be discharged from the inpatient psychiatric unit to continue on with treatment as an outpatient. The patient agreed that he is safe for this disposition. The patient was considered to be able to participate in informed consent and decision making with respect to medical, legal, and financial issues of the time of discharge. At the time of discharge the patient adamantly denied any concerns for lethality including suicidal or homicidal thoughts ideations or plans and was future oriented toward ongoing mental health care, medical follow-up and sobriety. - Time Spent with Patient Total time spent providing and/or coordinating discharge services: Greater than 30 minutes Assessment and Plan - Patient/Caregiver Discharge Instructions Activity: resume usual activities as tolerated Diet: regular diet - Follow up Plan Follow up with: [facility] [Other] (You have indicated that you are interested in residential substance abuse treatment and have been referred to [facility] for further treatment. [facility] is a 36-bed residential drug treatment facility for men. You will be receiving both group and individual counseling services specific to the treatment of substance abuse. Along with substance abuse treatment, you will be receiving mental health and case management services by Center staff. Medically assisted treatment via Naltrexone (Vivitrol) injections are available to interested individuals. He will be expected to participate in Recovery related activities including 12 step meetings, exercise and programs here towards a healthy lifestyle. A major focus at this program is the early development and adoption of positive behaviors to replace negative and maladaptive behaviors.) Functional capacity at discharge: independent ambulation Overall status at discharge: Stable Disposition: Home, Self-Care Quality - Multiple Antipsychotics Patient discharged on 2 or more antipsychotic medications: No Procedures - Procedures Procedures: Medication Management, Crisis Stabilization, Supportive Therapy, Group Therapy
[2018-10-27] MEDS: hydrOXYzine pamoate 25 MG CAPSULE PO PRN (09:45)
[2018-10-27 12:12] VITALS: BP 121/88
== END 2018-10-27 10:20 | disposition home or self-care (01) | DRG 753 ==
LOC: SUATTDRO 14:33 → 1ANU 14:33
PROVIDERS: ADMIT Psychiatry & Neurology Psychiatry; ATTEND Psychiatry & Neurology Psychiatry

== ENCOUNTER 2018-12-01 15:18 | Observation (INO) ==
[2018-12-01 15:58] LABS: Basophils # 0.1 K/mcL (0.0-0.2); Basophils % 0.6 %; Eosinophils # 0.2 K/mcL (0.0-0.6); Eosinophils % 2.4 %; Hematocrit 44.1 % (37.5-50.1); Hemoglobin 14.8 g/dL (12.9-16.9); Immature Granulocytes % 0.8 % (0-4); Lymphocytes # 3.4 K/mcL (0.6-4.6); Lymphocytes % 40.4 %; Mean Corpuscular HGB Conc 33.6 g/dL (31.6-35.5); Mean Corpuscular Hemoglobin 32.3 pg (28.0-33.3); Mean Corpuscular Volume 96.3 fL (83.0-100.0); Mean Platelet Volume 9.4 fL (9.4-12.4); Monocytes # 0.8 K/mcL (0.0-1.3); Monocytes % 9.3 %; Neutrophils # 3.9 K/mcL (1.6-8.9); Platelet Count 245 K/mcL (140-400); Red Blood Count 4.58 M/mcL (4.19-5.50); Red Cell Distribution Width 12.6 % (11.5-14.5); Segmented Neutrophils % 46.5 %; White Blood Count 8.3 K/mcL (4.3-11.1)
[2018-12-01 16:00] LABS: Bilirubin,Urine Negative (Negative); Blood,Urine Negative (Negative); Clarity,Urine Clear (Clear); Color,Urine Yellow (Yellow); Glucose,Urine (UA) Normal (Normal); Ketones,Urine Negative (Negative); Leukocyte Esterase,Urine Negative (Negative); Nitrite,Urine Negative (Negative); Protein,Urine Negative (Neg-Trace); Specific Gravity,Urine 1.021 (1.010-1.025); Urobilinogen,Urine Normal (Normal)
[2018-12-01 16:11] LABS: Amphetamine Screen,Urine Negative ng/mL (Cutoff=1000); Barbiturate Screen,Urine Negative ng/mL (Cutoff=200); Benzodiazepines Screen,Urine Negative ng/mL (Cutoff=200); Cannabinoid Screen,Urine Negative ng/mL (Cutoff = 50); Cocaine Screen,Urine Negative ng/mL (Cutoff= 300); Opiate Screen,Urine Negative ng/mL (Cutoff=300); Phencyclidine Screen,Urine Negative ng/mL (Cutoff=25)
--- NOTE | 2018-12-01 16:14 | Emergency Department Note ---
Disposition Clinical Impression: Suicidal ideation, Homicidal ideation Disposition: Admitted As Inpatient Condition: Good Referrals: Ramon Perry MD [Primary Care Provider] - Forms: ED Satisfaction Letter Time of Disposition: 16:41 Psych HPI - General Chief Complaint: ED Medical Clearance Stated Complaint: A1, S/I and H/I Time Seen by Provider: 12/01/18 15:25 Source: patient Mode of arrival: private vehicle Limitations: no limitations Nursing Notes Reviewed: Yes Vital Signs Reviewed: Yes - History of Present Illness HPI Narrative: This is a 33-year-old male who presents for medical clearance for psychiatric evaluation. The patient was pink slipped at [facility] prior to arrival. He tells me that he has had prior suicide attempts by cutting. States that he currently has a plan to cut himself. Both his father and another relative killed themselves. He is on several medications which she says he has been compliant with. He denies any auditory or visual hallucinations. He does report homicidal ideation with no particular person and mind. Denies any alcohol or drug use. No other complaints. Pt complaint: suicidal ideation Onset (ago): day(s) Duration: constant History of similar episodes: Yes Improves with: none Worsens with: none Associated Psychiatric Symptoms: suicidal ideation, homicidal ideation Associated symptoms: Reports: denies other symptoms Traumatic symptoms: denies traumatic injury Self harm or harm to others: admits thoughts of self harm, has plan, admits thoughts of harming others - Related Data Home Medications Medication Instructions Recorded Confirmed Ibuprofen [Ibu-200] 800 mg PO TID PRN 10/19/18 10/19/18 Previous Rx's Medication Instructions Recorded Atomoxetine [Strattera] 40 mg PO DAILY #30 capsule 10/27/18 Benztropine [Cogentin] 0.5 mg PO DAILY #30 tablet 10/27/18 DULoxetine [Cymbalta] 60 mg PO DAILY #60 capsule. 10/27/18 Divalproex (12 HR) [Depakote (12 2,000 mg PO DAILY #120 tablet. 10/27/18 HR)] Lisinopril [Zestril] 5 mg PO DAILY #30 tablet 10/27/18 OLANZapine [Zyprexa Zydis] 25 mg PO HS #90 tab.rapdis 10/27/18 Vitamin B Complex/Vit C/Vit E 1 each PO DAILY tablet 10/27/18 [Stresstab] Allergies Allergy/AdvReac Type Severity Reaction Status Date / Time Bee Pollen Allergy Anaphylaxis Verified 10/19/18 22:04 All systems ED: reviewed and negative except as stated. Psychiatric: Reports: depression, suicidal thoughts, homicidal thoughts. Denies: anxiety, auditory hallucinations, visual hallucinations Past Medical History - Past Medical History Attestation: Yes The following information was validated with the patient. Source: patient Medical history: Reports: hepatitis, hypertension, seizures, other Surgical history: Reports: cholecystectomy, other Psychiatric history: Reports: ADHD, bipolar, PTSD - Social History Smoking Status: Current every day smoker Smokeless Tobacco Status: No Alcohol use: Reports: none Drug use: Reports: methamphetamine Physical Exam - General Limitations: no limitations General appearance: alert, in no apparent distress - Head Head exam: atraumatic, normocephalic, normal inspection - Eye Eye exam: Present: normal appearance - ENT ENT exam: normal exam - Neck Neck exam: Present: normal inspection - Chest Chest inspection: Present: normal inspection, symmetric chest wall rise - Respiratory Respiratory exam: Present: normal lung sounds bilaterally - Cardiovascular Cardiovascular exam: Present: regular rate, normal rhythm, irregular rhythm - Extremities Exam Extremities exam: Present: normal inspection - Expanded Upper Extremity Exam Shoulder exam: Present: normal inspection Arm exam: Present: normal inspection Elbow exam: Present: normal inspection Forearm/Wrist exam: Present: normal inspection Hand exam: Present: normal inspection - Expanded Lower Extremity Exam Hip/Pelvis exam: Present: normal inspection Upper leg exam: Present: normal inspection Knee exam: Present: normal inspection Lower leg exam: Present: normal inspection Ankle exam: Present: normal inspection Foot/toe exam: Present: normal inspection - Neurological Exam Neurological exam: Present: alert, other (Alert, GCS 15, no focal deficits.) - Psychiatric Psychiatric exam: Present: homicidal ideation, suicidal ideation - Skin Skin exam: Present: warm, dry Course Course Narrative: Seen and examined. The patient was pink slipped prior to arrival. Plan for lab s for medical clearance and then admission to the psychiatric unit. - Reevaluation(s) Reevaluation #1: Patient medically cleared. Accepted to [facility]. Vital Signs Temperature 97.6 F 12/01/18 15:22 Pulse Rate 80 12/01/18 15:22 Respiratory Rate 18 12/01/18 15:22 Blood Pressure 109/76 12/01/18 15:22 O2 Sat by Pulse Oximetry 98 12/01/18 15:22 Temperature 97.6 F 12/01/18 15:22 Pulse Rate 80 12/01/18 15:22 Respiratory Rate 18 12/01/18 15:22 Blood Pressure 109/76 12/01/18 15:22 O2 Sat by Pulse Oximetry 98 12/01/18 15:22 Oxygen Delivery Oxygen Delivery Room Air Psych - MDM Narrative Medical decision making narrative: 33-year-old male presenting with suicidal and homicidal ideations. He is pink slipped. Patient was medically cleared. He is admitted to the psychiatric unit. - Lab Data Lab results reviewed: Yes I reviewed the patient's lab results. Result diagrams: 12/01/18 15:38 12/01/18 15:38 Lab Results 12/01/18 12/01/18 12/01/18 Range/Units 15:37 15:38 15:38 WBC 8.3 (4.3-11.1) K/mcL RBC 4.58 (4.19-5.50) M/mcL Hgb 14.8 (12.9-16.9) g/dL Hct 44.1 (37.5-50.1) % MCV 96.3 (83.0-100.0) fL MCH 32.3 (28.0-33.3) pg MCHC 33.6 (31.6-35.5) g/dL RDW 12.6 (11.5-14.5) % Plt Count 245 (140-400) K/mcL MPV 9.4 (9.4-12.4) fL Immature Gran % 0.8 (0-4) % Seg Neutrophils % 46.5 % Lymphocytes % 40.4 % Monocytes % 9.3 % Eosinophils % 2.4 % Basophils % 0.6 % Neutrophils # 3.9 (1.6-8.9) K/mcL Lymphocytes # 3.4 (0.6-4.6) K/mcL Monocytes # 0.8 (0.0-1.3) K/mcL Eosinophils # 0.2 (0.0-0.6) K/mcL Basophils # 0.1 (0.0-0.2) K/mcL Sodium 137 (136-145) mEq/L Potassium 4.7 (3.5-5.1) mEq/L Chloride 99 (98-107) mEq/L Carbon Dioxide 33 H (23-29) mEq/L BUN 21 H (6-20) mg/dL Creatinine 0.96 (0.70-1.30) mg/dL Est GFR ( Amer) > 60 (> 60) Est GFR (Non-Af Amer) > 60 (> 60) BUN/Creatinine Ratio 22 (6-26) Glucose 103 (70-105) mg/dL Calculated Osmolality 287 (280-300) Calcium 8.9 (8.6-10.3) mg/dL TSH 2.220 (0.340-5.600) mcIU/mL Urine Color (Yellow) Urine Clarity (Clear) Urine pH (5.0-8.0) pH Units Ur Specific [place] (1.010-1.025) Urine Protein (Neg-Trace) mg/dL Urine Glucose (UA) (Normal) mg/dL Urine Ketones (Negative) mg/dL Urine Blood (Negative) Urine Nitrite (Negative) Urine Bilirubin (Negative) Urine Urobilinogen (Normal) mg/dL Ur Leukocyte Esterase (Negative) Salicylates < 2.5 L (15.0-30.0) mg/dL Urine Opiates Screen Negative (Jozths=296) ng/mL Ur Buprenorphine Scrn Negative (Cutoff=5) ng/mL Acetaminophen < 10 L (10-20) mcg/mL Ur Barbiturates Screen Negative (Zixhxu=182) ng/mL Valproic Acid 89 (50-100) mcg/mL Ur Phencyclidine Scrn Negative (Cutoff=25) ng/mL Ur Amphetamines Screen Negative (Jmsygh=7153) ng/mL U Benzodiazepines Scrn Negative (Moxhsf=287) ng/mL Urine Cocaine Screen Negative (Cutoff= 300) ng/mL U Marijuana (THC) Screen Negative (Cutoff = 50) ng/mL Ur Drug Screen Interp See Below Ethyl Alcohol < 10 (Less than 10) mg/dL 12/01/18 Range/Units 15:46 WBC (4.3-11.1) K/mcL RBC (4.19-5.50) M/mcL Hgb (12.9-16.9) g/dL Hct (37.5-50.1) % MCV (83.0-100.0) fL MCH (28.0-33.3) pg MCHC (31.6-35.5) g/dL RDW (11.5-14.5) % Plt Count (140-400) K/mcL MPV (9.4-12.4) fL Immature Gran % (0-4) % Seg Neutrophils % % Lymphocytes % % Monocytes % % Eosinophils % % Basophils % % Neutrophils # (1.6-8.9) K/mcL Lymphocytes # (0.6-4.6) K/mcL Monocytes # (0.0-1.3) K/mcL Eosinophils # (0.0-0.6) K/mcL Basophils # (0.0-0.2) K/mcL Sodium (136-145) mEq/L Potassium (3.5-5.1) mEq/L Chloride (98-107) mEq/L Carbon Dioxide (23-29) mEq/L BUN (6-20) mg/dL Creatinine (0.70-1.30) mg/dL Est GFR ( Amer) (> 60) Est GFR (Non-Af Amer) (> 60) BUN/Creatinine Ratio (6-26) Glucose (70-105) mg/dL Calculated Osmolality (280-300) Calcium (8.6-10.3) mg/dL TSH (0.340-5.600) mcIU/mL Urine Color Yellow (Yellow) Urine Clarity Clear (Clear) Urine pH 7.0 (5.0-8.0) pH Units Ur Specific [place] 1.021 (1.010-1.025) Urine Protein Negative (Neg-Trace) mg/dL Urine Glucose (UA) Normal (Normal) mg/dL Urine Ketones Negative (Negative) mg/dL Urine Blood Negative (Negative) Urine Nitrite Negative (Negative) Urine Bilirubin Negative (Negative) Urine Urobilinogen Normal (Normal) mg/dL Ur Leukocyte Esterase Negative (Negative) Salicylates (15.0-30.0) mg/dL Urine Opiates Screen (Neyexw=499) ng/mL Ur Buprenorphine Scrn (Cutoff=5) ng/mL Acetaminophen (10-20) mcg/mL Ur Barbiturates Screen (Brywye=105) ng/mL Valproic Acid (50-100) mcg/mL Ur Phencyclidine Scrn (Cutoff=25) ng/mL Ur Amphetamines Screen (Nbtjya=8913) ng/mL U Benzodiazepines Scrn (Gkflhv=467) ng/mL Urine Cocaine Screen (Cutoff= 300) ng/mL U Marijuana (THC) Screen (Cutoff = 50) ng/mL Ur Drug Screen Interp Ethyl Alcohol (Less than 10) mg/dL Psychiatric Medical Clearance - Medical Clearance Checklist Medical History: No Social History Section defined Current Vitals: Last Vital Signs Temp 97.6 F 12/01/18 15:22 Pulse 80 12/01/18 15:22 Resp 18 12/01/18 15:22 BP 109/76 12/01/18 15:22 Pulse Ox 98 12/01/18 15:22 Psychiatric Lab Panel: Drug Levels and Toxicity 12/01/18 12/01/18 15:37 15:38 Urine Opiates Screen Negative Acetaminophen < 10 L Ur Barbiturates Screen Negative Ur Phencyclidine Scrn Negative Ur Amphetamines Screen Negative U Benzodiazepines Scrn Negative Urine Cocaine Screen Negative U Marijuana (THC) Screen Negative Ethyl Alcohol < 10 Abnormal Labs: Abnormal lab results Carbon Dioxide 33 mEq/L (23-29) H 12/01/18 15:38 BUN 21 mg/dL (6-20) H 12/01/18 15:38 Salicylates < 2.5 mg/dL (15.0-30.0) L 12/01/18 15:38 Acetaminophen < 10 mcg/mL (10-20) L 12/01/18 15:38 Statement of Medical Clearance: I have evaluated the patient, reviewed diagnostic information, and certify that the patient's medical condition is sufficiently stable that transfer to the psychiatric unit does not pose a significant risk of deterioration.
[2018-12-01 16:17] LABS: Acetaminophen < 10 mcg/mL (10-20); BUN/Creatinine Ratio 22 (6-26); Blood Urea Nitrogen 21 mg/dL (6-20); Calcium 8.9 mg/dL (8.6-10.3); Carbon Dioxide 33 mEq/L (23-29); Chloride 99 mEq/L (98-107); Ethanol < 10 mg/dL (Less than 10); Glucose 103 mg/dL (70-105); Osmolality,Calculated 287 (280-300); Potassium 4.7 mEq/L (3.5-5.1); Salicylate < 2.5 mg/dL (15.0-30.0); Sodium 137 mEq/L (136-145); Valproate 89 mcg/mL (50-100); eGFR For African Americans > 60 (> 60); eGFR For Non-African Americans > 60 (> 60)
[2018-12-01] MEDS ORDERED: Acetaminophen 325 MG TABLET PO PRN (17:13)
[2018-12-01] MEDS ORDERED: hydrOXYzine pamoate 25 MG CAPSULE PO PRN (17:13)
[2018-12-01] MEDS ORDERED: MOM Conc 10 ML UD.LIQ PO PRN (17:13)
[2018-12-01] MEDS ORDERED: Mag Hydrox/Al Hydrox/Simeth 30 ML UDC PO PRN (17:13)
[2018-12-01] MEDS ORDERED: Haloperidol Lactate 5 MG/ML VIAL IM PRN (17:13)
[2018-12-01] MEDS ORDERED: *HR* LORazepam 1 MG TABLET PO PRN (17:13)
[2018-12-01] MEDS ORDERED: *HR* LORazepam 2 MG/ML VIAL IM PRN (17:13)
--- NOTE | 2018-12-02 09:22 | Discharge Summary ---
<Rosita Holman N - Last Filed: 12/02/18 10:14> Date of Encounter: 12/02/18 Time of Encounter: 09:22 History of Present Illness Chief complaint: Suicidal ideation Admitted From: Emergency Dept History of Present Illness: Mr. Sarabia is a 33 year old male with a history of bipolar disorder and multiple psychiatric hospitalizations, currently residing in a sober living facility, who presented to the ED yesterday voicing suicidal ideation. Patient reported that he had not received his zyprexa for approximately 5 days, as he ran out of that medication and the refill had not been picked up. Patient endorses a history of multiple suicide attempts, the most recent ~1 year ago. Family history is significant for completed suicide attempt in his father and his uncle, as well as multiple family members with psychiatric diagnoses. Patient also endorsed nonspecific homicidal ideation, stating "I just felt like I needed to reach out and touch someone". Patient did receive a dose of zyprexa yesterday immediately prior to ED presentation. Patient was discharged from this facility on 10/27/2018 after psychiatric admission to [facility]. Since discharge, patient reports that he has been doing very well at his sober living facility, and voices that he is looking forward to the future. He reports that he has now been sober for 48 days. On evaluation today, he reports improvement in symptoms, and states that he thinks his suicidal/homicidal ideation was directly related to multiple missed doses of zyprexa. He endorses that he is happy with his current medication regimen as far as control of his psychiatric symptoms; however, he does complain of negative sexual side effects associated with use of cymbalta. He denies any active SI/HI at this time, and voices no thoughts of self-harm. He states that he is eager to return home. Past Med Surg Social Fam HX - Past Medical History Medical history: hepatitis, hypertension, seizures, other - Past Psychiatric History Psychiatric history: Reports: ADHD, bipolar, depression, PTSD, prior suicide attempt, previous psychiatric hospitalization Past psychiatric history details: History of multiple psychiatric admissions to this facility, as well as ~4 suicide attempts in the past (last ~1 year ago). Family history significant for completed suicide in uncle and father. Family psychiatric history: Yes Family History of Suicide: Completed Family Suicide History Details: Father and uncle by suicide. - Past Surgical History Surgical History: cholecystectomy, other - Social History Smoking Status: Current every day smoker Smokeless Tobacco Status: No Alcohol use: none Drug use: methamphetamine - Family History Father Adopted: No Family Member Ethnicity: Non- Living Status: Cause of : Suicide Hx Family Cardiac Disorders: No Hx Family Respiratory Disorders: No Hx Family Cancer: No Hx Family GI Disorders: No Hx Family Endocrine Disorder: No Hx Family Neuromuscular Disorders: No Hx Family Neurologic Disorders: No Hx Family HEENT Disorders: No Hx Family Autoimmune Disorders: No Brother Adopted: No Family Member Ethnicity: Non- Living Status: Still Living Hx Family Cardiac Disorders: No Hx Family Respiratory Disorders: No Hx Family Cancer: No Hx Family GI Disorders: No Hx Family Endocrine Disorder: No Hx Family Neuromuscular Disorders: No Hx Family Neurologic Disorders: No Hx Family HEENT Disorders: No Hx Family Autoimmune Disorders: No Mother Adopted: No Family Member Ethnicity: Non- Living Status: Still Living Hx Family Cardiac Disorders: Yes (CAD, Stents x4, HTN) Hx Family Respiratory Disorders: No Hx Family Cancer: No Hx Family GI Disorders: No Hx Family Endocrine Disorder: No Hx Family Neuromuscular Disorders: No Hx Family Neurologic Disorders: No Hx Family HEENT Disorders: No Hx Family Autoimmune Disorders: No Grandfather Family Member Ethnicity: Non- Living Status: Hx Family Cardiac Disorders: Yes (Quad Bipass) Medications - Discharge Medications Atomoxetine [Strattera] 40 mg PO DAILY #30 capsule 10/27/18 [Rx] Benztropine [Cogentin] 0.5 mg PO DAILY #30 tablet 10/27/18 [Rx] DULoxetine [Cymbalta] 60 mg PO DAILY #60 capsule. 10/27/18 [Rx] Divalproex (12 HR) [Depakote (12 HR)] 2,000 mg PO DAILY #120 tablet. 10/27/18 [Rx] Lisinopril [Zestril] 5 mg PO DAILY #30 tablet 10/27/18 [Rx] OLANZapine [Zyprexa Zydis] 25 mg PO HS #90 tab.rapdis 10/27/18 [Rx] Vitamin B Complex/Vit C/Vit E [Stresstab] 1 each PO DAILY tablet 10/27/18 [Rx] Allergy/AdvReac Type Severity Reaction Status Date / Time Bee Pollen Allergy Anaphylaxis Verified 10/19/18 22:04 Review of Systems Constitutional: Denies: weakness Cardiovascular: Denies: chest pain Respiratory: Denies: dyspnea Gastrointestinal: Denies: abdominal pain, nausea, vomiting Genitourinary male: Reports: other ("sexual side effects" from cymbalta) Musculoskeletal: Denies: joint swelling, joint pain Neurological: Denies: headache, weakness, numbness, memory loss Psychiatric: Reports: suicidal ideation, homicidal ideation, change in libido Endocrine: Denies: fatigue, heat or cold intolerance Exam - HEENT Head exam IM: Present: atraumatic Eye exam IM: Present: EOMI, normal appearance, PERRL ENT exam IM: Present: normal exam - Neurological Neurological exam: Present: CN II-XII intact (grossly normal on observation), no focal deficits - Respiratory Respiratory exam IM: Absent: accessory muscle use, respiratory distress - GI/Abdominal GI/Abdominal exam IM: Absent: distended, tenderness - Extremities Extremities exam IM: Present: full ROM - Skin Skin exam IM: Present: dry, warm - Constitutional Vitals: Temp Pulse Resp BP Pulse Ox 97.6 F 84 16 119/84 99 12/01/18 20:33 12/01/18 20:33 12/01/18 20:33 12/01/18 20:33 12/01/18 20:33 General appearance: age & developmentally appropriate, well-groomed, well- nourished - Musculoskeletal Gait: normal Station: relaxed Strength & Tone: normal for patient (grossly normal on observation) - Psychiatric Patient Orientation: Yes Person, Yes Time, Yes Place Level of alertness: Alert, Follows commands Behavior: calm, cooperative Psychomotor activity: Normal Eye Contact: Maintains Eye Contact Mood Description: Euthymic/stable Affect description: congruent with mood, full range Speech Volume: Normal Speech pattern: normal rate, normal rhythm, normal tone, fluent, spontaneous, appropriate Language & Vocabulary: consistent with education Thought Process: Linear, Goal Oriented Thought Content: No Suicidal ideation, No Homicidal ideation, No Overt delusions Perceptual Disturbances: No Auditory hallucinations, No Visual hallucinations Attention Span Ability: Capable of Focused Attention Memory Description: Grossly Intact Patient Reliability: Reliable Historian Intelligence Estimate: Average Judgment: Good Insight: Partial Results - Drug Levels and Toxicology Drug Levels and Toxicology: Drug Levels and Toxicity 12/01/18 12/01/18 15:37 15:38 Urine Opiates Screen Negative Acetaminophen < 10 L Ur Barbiturates Screen Negative Ur Phencyclidine Scrn Negative Ur Amphetamines Screen Negative U Benzodiazepines Scrn Negative Urine Cocaine Screen Negative U Marijuana (THC) Screen Negative Ethyl Alcohol < 10 - Labs Labs: Laboratory Last Values WBC 8.3 K/mcL (4.3-11.1) 12/01/18 15:38 RBC 4.58 M/mcL (4.19-5.50) 12/01/18 15:38 Hgb 14.8 g/dL (12.9-16.9) 12/01/18 15:38 Hct 44.1 % (37.5-50.1) 12/01/18 15:38 MCV 96.3 fL (83.0-100.0) 12/01/18 15:38 MCH 32.3 pg (28.0-33.3) 12/01/18 15:38 MCHC 33.6 g/dL (31.6-35.5) 12/01/18 15:38 RDW 12.6 % (11.5-14.5) 12/01/18 15:38 Plt Count 245 K/mcL (140-400) 12/01/18 15:38 MPV 9.4 fL (9.4-12.4) 12/01/18 15:38 Immature Gran % 0.8 % (0-4) 12/01/18 15:38 Seg Neutrophils % 46.5 % 12/01/18 15:38 Lymphocytes % 40.4 % 12/01/18 15:38 Monocytes % 9.3 % 12/01/18 15:38 Eosinophils % 2.4 % 12/01/18 15:38 Basophils % 0.6 % 12/01/18 15:38 Neutrophils # 3.9 K/mcL (1.6-8.9) 12/01/18 15:38 Lymphocytes # 3.4 K/mcL (0.6-4.6) 12/01/18 15:38 Monocytes # 0.8 K/mcL (0.0-1.3) 12/01/18 15:38 Eosinophils # 0.2 K/mcL (0.0-0.6) 12/01/18 15:38 Basophils # 0.1 K/mcL (0.0-0.2) 12/01/18 15:38 Sodium 137 mEq/L (136-145) 12/01/18 15:38 Potassium 4.7 mEq/L (3.5-5.1) 12/01/18 15:38 Chloride 99 mEq/L (98-107) 12/01/18 15:38 Carbon Dioxide 33 mEq/L (23-29) H 12/01/18 15:38 BUN 21 mg/dL (6-20) H 12/01/18 15:38 Creatinine 0.96 mg/dL (0.70-1.30) 12/01/18 15:38 Est GFR ( Amer) > 60 (> 60) 12/01/18 15:38 Est GFR (Non-Af Amer) > 60 (> 60) 12/01/18 15:38 BUN/Creatinine Ratio 22 (6-26) 12/01/18 15:38 Glucose 103 mg/dL (70-105) 12/01/18 15:38 Calculated Osmolality 287 (280-300) 12/01/18 15:38 Calcium 8.9 mg/dL (8.6-10.3) 12/01/18 15:38 TSH 2.220 mcIU/mL (0.340-5.600) 12/01/18 15:38 Urine Color Yellow (Yellow) 12/01/18 15:46 Urine Clarity Clear (Clear) 12/01/18 15:46 Urine pH 7.0 pH Units (5.0-8.0) 12/01/18 15:46 Ur Specific [place] 1.021 (1.010-1.025) 12/01/18 15:46 Urine Protein Negative mg/dL (Neg-Trace) 12/01/18 15:46 Urine Glucose (UA) Normal mg/dL (Normal) 12/01/18 15:46 Urine Ketones Negative mg/dL (Negative) 12/01/18 15:46 Urine Blood Negative (Negative) 12/01/18 15:46 Urine Nitrite Negative (Negative) 12/01/18 15:46 Urine Bilirubin Negative (Negative) 12/01/18 15:46 Urine Urobilinogen Normal mg/dL (Normal) 12/01/18 15:46 Ur Leukocyte Esterase Negative (Negative) 12/01/18 15:46 Salicylates < 2.5 mg/dL (15.0-30.0) L 12/01/18 15:38 Urine Opiates Screen Negative ng/mL (Zzilrh=957) 12/01/18 15:37 Ur Buprenorphine Scrn Negative ng/mL (Cutoff=5) 12/01/18 15:37 Acetaminophen < 10 mcg/mL (10-20) L 12/01/18 15:38 Ur Barbiturates Screen Negative ng/mL (Pkmixu=615) 12/01/18 15:37 Valproic Acid 89 mcg/mL (50-100) 12/01/18 15:38 Ur Phencyclidine Scrn Negative ng/mL (Cutoff=25) 12/01/18 15:37 Ur Amphetamines Screen Negative ng/mL (Tmwhvq=7993) 12/01/18 15:37 U Benzodiazepines Scrn Negative ng/mL (Iryrwk=710) 12/01/18 15:37 Urine Cocaine Screen Negative ng/mL (Cutoff= 300) 12/01/18 15:37 U Marijuana (THC) Screen Negative ng/mL (Cutoff = 50) 12/01/18 15:37 Ur Drug Screen Interp See Below 12/01/18 15:37 Ethyl Alcohol < 10 mg/dL (Less than 10) 12/01/18 15:38 Diagnosis - Discharge Diagnosis (1) Bipolar disorder Priority: Primary Status: Chronic Comments: History of bipolar disorder, with current home medications of olanzapine, depakote, duloxetine, and cogentin. Patient did miss multiple doses of zyprexa, which he feels was directly related to onset of SI/HI. He reports improvement in his symptoms after receiving zyprexa yesterday, and denies active SI/HI. Recommend continuing current medication regimen and avoiding lapses in medication administration. With regards to sexual side effects from cymbalta, we discussed adding Welbutrin, which would have the added benefit of addressing his depression and ADHD as well. Patient reports a history of seizures, but denies having been diagnosed with a seizure disorder, stating that they were directly related to alcohol and drug use. Patient has been evaluated in the ED recently for pseudoseizures, with no diagnosed seizures recorded. Patient is currently on depakote and in a sober living facility. We would feel comfortable starting therapy with Welbutrin; however, patient is eager to return home, electing to followup outpatient for initiation of this medication. Qualifiers: Active/Remission status: remission status unspecified Qualified Code(s): F31.9 - Bipolar disorder, unspecified (2) Suicidal ideation Priority: Secondary Status: Resolved Assessment and Plan - Patient/Caregiver Discharge Instructions Activity: resume usual activities as tolerated, increase activity as tolerated Diet: regular diet - Follow up Plan Follow up with: [facility] [Other] (You have indicated that you are interested in residential substance abuse treatment and have been referred to [facility] for further treatment. [facility] is a 36-bed residential drug treatment facility for men. You will be receiving both group and individual counseling services specific to the treatment of substance abuse. Along with substance abuse treatment, you will be receiving mental health and case management services by Center staff. Medically assisted treatment via Naltrexone (Vivitrol) injections are available to interested individuals. He will be expected to participate in Recovery related activities including 12 step meetings, exercise and programs here towards a healthy lifestyle. A major focus at this program is the early development and adoption of positive behaviors to replace negative and maladaptive behaviors.) Functional capacity at discharge: independent ambulation Overall status at discharge: patient is back to baseline Disposition: Home, Self-Care Provider Date of admission: 12/01/18 16:43 Primary care physician: PCP NONE Discharging clinician: Dulceroseline Hu [facility] Course Hospital course: Mr. Sarabia is a 33 year old male with a history of bipolar disorder and multiple psychiatric hospitalizations, currently residing in a sober living facility, who presented to the ED yesterday voicing suicidal ideation. Patient reported that he had not received his zyprexa for approximately 5 days, as he ran out of that medication and the refill had not been picked up. Patient endorses a history of multiple suicide attempts, the most recent ~1 year ago. Family history is significant for completed suicide attempt in his father and his uncle, as well as multiple family members with psychiatric diagnoses. Patient also endorsed nonspecific homicidal ideation, stating "I just felt like I needed to reach out and touch someone". Patient did receive a dose of zyprexa yesterday immediately prior to ED presentation. Patient was discharged from this facility on 10/27/2018 after psychiatric admission to . Since discharge, patient reports that he has been doing very well at his sober living facility, and voices that he is looking forward to the future. He reports that he has now been sober for 48 days. On evaluation today, he reports improvement in symptoms, and states that he thinks his suicidal/homicidal ideation was directly related to multiple missed doses of zyprexa. He endorses that he is happy with his current medication regimen as far as control of his psychiatric symptoms; however, he does complain of negative sexual side effects associated with use of cymbalta. He denies any active SI/HI at this time, and voices no thoughts of self-harm. He states that he is eager to return home. Recommend continuing current medication regimen and avoiding lapses in medication administration. With regards to sexual side effects from cymbalta, we discussed adding Welbutrin, which would have the added benefit of addressing his depression and ADHD as well. Patient reports a history of seizures, but denies having been diagnosed with a seizure disorder, stating that they were directly related to alcohol and drug use. Patient has been evaluated in the ED recently for pseudoseizures, with no diagnosed seizures recorded. Patient is currently on depakote and in a sober living facility. We would feel comfortable starting therapy with Welbutrin; however, patient is eager to return home, electing to followup outpatient for initiation of this medication. - Time Spent with Patient Total time spent providing and/or coordinating discharge services: Quality - Multiple Antipsychotics Patient discharged on 2 or more antipsychotic medications: No <Dulce Hu S - Last Filed: 12/02/18 13:11> Date of Encounter: 12/02/18 History of Present Illness History of Present Illness: Mr. Sarabia is a 33 year old male Exam - Constitutional Vitals: Temp Pulse Resp BP Pulse Ox 97.8 F 96 18 120/87 98 12/02/18 09:00 12/02/18 09:00 12/02/18 09:00 12/02/18 09:00 12/02/18 09:00 Results - Drug Levels and Toxicology Drug Levels and Toxicology: Drug Levels and Toxicity 12/01/18 12/01/18 15:37 15:38 Urine Opiates Screen Negative Acetaminophen < 10 L Ur Barbiturates Screen Negative Ur Phencyclidine Scrn Negative Ur Amphetamines Screen Negative U Benzodiazepines Scrn Negative Urine Cocaine Screen Negative U Marijuana (THC) Screen Negative Ethyl Alcohol < 10 - Labs Labs: Laboratory Last Values WBC 8.3 K/mcL (4.3-11.1) 12/01/18 15:38 RBC 4.58 M/mcL (4.19-5.50) 12/01/18 15:38 Hgb 14.8 g/dL (12.9-16.9) 12/01/18 15:38 Hct 44.1 % (37.5-50.1) 12/01/18 15:38 MCV 96.3 fL (83.0-100.0) 12/01/18 15:38 MCH 32.3 pg (28.0-33.3) 12/01/18 15:38 MCHC 33.6 g/dL (31.6-35.5) 12/01/18 15:38 RDW 12.6 % (11.5-14.5) 12/01/18 15:38 Plt Count 245 K/mcL (140-400) 12/01/18 15:38 MPV 9.4 fL (9.4-12.4) 12/01/18 15:38 Immature Gran % 0.8 % (0-4) 12/01/18 15:38 Seg Neutrophils % 46.5 % 12/01/18 15:38 Lymphocytes % 40.4 % 12/01/18 15:38 Monocytes % 9.3 % 12/01/18 15:38 Eosinophils % 2.4 % 12/01/18 15:38 Basophils % 0.6 % 12/01/18 15:38 Neutrophils # 3.9 K/mcL (1.6-8.9) 12/01/18 15:38 Lymphocytes # 3.4 K/mcL (0.6-4.6) 12/01/18 15:38 Monocytes # 0.8 K/mcL (0.0-1.3) 12/01/18 15:38 Eosinophils # 0.2 K/mcL (0.0-0.6) 12/01/18 15:38 Basophils # 0.1 K/mcL (0.0-0.2) 12/01/18 15:38 Sodium 137 mEq/L (136-145) 12/01/18 15:38 Potassium 4.7 mEq/L (3.5-5.1) 12/01/18 15:38 Chloride 99 mEq/L (98-107) 12/01/18 15:38 Carbon Dioxide 33 mEq/L (23-29) H 12/01/18 15:38 BUN 21 mg/dL (6-20) H 12/01/18 15:38 Creatinine 0.96 mg/dL (0.70-1.30) 12/01/18 15:38 Est GFR ( Amer) > 60 (> 60) 12/01/18 15:38 Est GFR (Non-Af Amer) > 60 (> 60) 12/01/18 15:38 BUN/Creatinine Ratio 22 (6-26) 12/01/18 15:38 Glucose 103 mg/dL (70-105) 12/01/18 15:38 Calculated Osmolality 287 (280-300) 12/01/18 15:38 Calcium 8.9 mg/dL (8.6-10.3) 12/01/18 15:38 TSH 2.220 mcIU/mL (0.340-5.600) 12/01/18 15:38 Urine Color Yellow (Yellow) 12/01/18 15:46 Urine Clarity Clear (Clear) 12/01/18 15:46 Urine pH 7.0 pH Units (5.0-8.0) 12/01/18 15:46 Ur Specific [place] 1.021 (1.010-1.025) 12/01/18 15:46 Urine Protein Negative mg/dL (Neg-Trace) 12/01/18 15:46 Urine Glucose (UA) Normal mg/dL (Normal) 12/01/18 15:46 Urine Ketones Negative mg/dL (Negative) 12/01/18 15:46 Urine Blood Negative (Negative) 12/01/18 15:46 Urine Nitrite Negative (Negative) 12/01/18 15:46 Urine Bilirubin Negative (Negative) 12/01/18 15:46 Urine Urobilinogen Normal mg/dL (Normal) 12/01/18 15:46 Ur Leukocyte Esterase Negative (Negative) 12/01/18 15:46 Salicylates < 2.5 mg/dL (15.0-30.0) L 12/01/18 15:38 Urine Opiates Screen Negative ng/mL (Dznafi=925) 12/01/18 15:37 Ur Buprenorphine Scrn Negative ng/mL (Cutoff=5) 12/01/18 15:37 Acetaminophen < 10 mcg/mL (10-20) L 12/01/18 15:38 Ur Barbiturates Screen Negative ng/mL (Corcrg=489) 12/01/18 15:37 Valproic Acid 89 mcg/mL (50-100) 12/01/18 15:38 Ur Phencyclidine Scrn Negative ng/mL (Cutoff=25) 12/01/18 15:37 Ur Amphetamines Screen Negative ng/mL (Dqumyq=1552) 12/01/18 15:37 U Benzodiazepines Scrn Negative ng/mL (Ppvcvv=328) 12/01/18 15:37 Urine Cocaine Screen Negative ng/mL (Cutoff= 300) 12/01/18 15:37 U Marijuana (THC) Screen Negative ng/mL (Cutoff = 50) 12/01/18 15:37 Ur Drug Screen Interp See Below 12/01/18 15:37 Ethyl Alcohol < 10 mg/dL (Less than 10) 12/01/18 15:38 Assessment and Plan - Patient/Caregiver Discharge Instructions Activity: resume usual activities as tolerated Diet: regular diet - Follow up Plan Functional capacity at discharge: independent ambulation Overall status at discharge: Stable Provider Date of admission: 12/01/18 16:43 Primary care physician: PCP NONE Hospital Course Hospital course: Mr. Sarabia is a 33 year old male - Time Spent with Patient Total time spent providing and/or coordinating discharge services: - Attending Attestation I examined this patient and my medical decision-making was reviewed with the Resident Physician. I agree with the documented findings, disposition and treatment plan as described except to the extent set forth below. Client familiar to this ad writer from his last admission. Discharged to the [facility] for AOD treatment at that time and has been residing at the [facility] ever since. Has been doing very well there according to staff at the [facility]. They report client is one of their better patients. Today client states he remains invested in his sobriety and that he will continue to follow their program and keep himself abstinent. Client and staff from the [facility] report multiple stressors there recently. It has been a high stimuli environment with multiple staff changes. The Director left and multiple counselors have left. Client feels the sudden decrease in staff is the reason his medication failed to get refilled. Client takes 25mg of Zyprexa daily and does very well with this medication. Started to do poorly after being off this med for nearly a week. Staff from the [facility] were able to fill it yesterday and client got one dose before presenting to the hospital. States he feels much better today. Believes missing several doses of this medication is why he went downhill. Today he feels much better. Now denying SI, intent, or plan. Denying HI/AH/VH. Feels safe to return to the [facility] for treatment. Total time spent with client greater than 30 minutes.
[2018-12-02 09:30] VITALS: BP 120/87
== END 2018-12-02 12:17 | disposition home or self-care (01) ==
LOC: EMEROOARM 15:18 → INTOOBSV 16:43 → 1ANU 16:43
PROVIDERS: ADMIT Psychiatry & Neurology Psychiatry; ATTEND Psychiatry & Neurology Psychiatry

== ENCOUNTER 2019-04-11 21:01 | Inpatient (IN) ==
[2019-04-11 22:21] LABS: Basophils % 0.5 %; Eosinophils # 0.2 K/mcL (0.0-0.6); Eosinophils % 2.2 %; Hematocrit 40.3 % (37.5-50.1); Hemoglobin 13.2 g/dL (12.9-16.9); Immature Granulocytes % 0.6 % (0-4); Lymphocytes # 2.5 K/mcL (0.6-4.6); Lymphocytes % 28.8 %; Mean Corpuscular HGB Conc 32.8 g/dL (31.6-35.5); Mean Corpuscular Hemoglobin 32.2 pg (28.0-33.3); Mean Platelet Volume 9.9 fL (9.4-12.4); Monocytes # 1.2 K/mcL (0.0-1.3); Monocytes % 14.3 %; Neutrophils # 4.7 K/mcL (1.6-8.9); Platelet Count 207 K/mcL (140-400); Red Cell Distribution Width 13.4 % (11.5-14.5); Segmented Neutrophils % 53.6 %; White Blood Count 8.7 K/mcL (4.3-11.1)
[2019-04-11 22:22] LABS: Mean Corpuscular Volume 98.3 fL (83.0-100.0)
[2019-04-11 22:35] LABS: Acetaminophen < 10 mcg/mL (10-20); Alanine Aminotransferase 196 Units/L (7-52); Albumin 3.7 g/dL (3.5-5.7); Albumin/Globulin Ratio 1.3 (1.1-2.2); Alkaline Phosphatase 87 Units/L (34-104); Aspartate Amino Transferase 107 Units/L (13-39); BUN/Creatinine Ratio 15 (6-26); Bilirubin,Total 0.5 mg/dL (0.3-1.0); Blood Urea Nitrogen 14 mg/dL (6-20); Calcium 8.7 mg/dL (8.6-10.3); Carbon Dioxide 24 mEq/L (23-29); Chloride 108 mEq/L (98-107); Ethanol < 10 mg/dL (Less than 10); Globulin 2.9 g/dL (2.4-3.5); Glucose 184 mg/dL (70-105); Osmolality,Calculated 291 (280-300); Potassium 4.4 mEq/L (3.5-5.1); Salicylate < 2.5 mg/dL (15.0-30.0); Sodium 138 mEq/L (136-145); Total Protein 6.6 g/dL (6.4-8.9); eGFR For African Americans > 60 (> 60); eGFR For Non-African Americans > 60 (> 60)
[2019-04-11 22:41] LABS: Bilirubin,Urine Small (Negative); Blood,Urine Negative (Negative); Clarity,Urine Clear (Clear); Color,Urine Dark Yellow (Yellow); Glucose,Urine (UA) 250 mg/dL (Normal); Ketones,Urine Trace mg/dL (Negative); Leukocyte Esterase,Urine Negative (Negative); Nitrite,Urine Negative (Negative); Protein,Urine Trace mg/dL (Neg-Trace); Specific Gravity,Urine > 1.030 (1.010-1.025)
[2019-04-11 22:44] LABS: Amphetamine Screen,Urine Positive ng/mL (Cutoff=1000); Barbiturate Screen,Urine Negative ng/mL (Cutoff=200); Benzodiazepines Screen,Urine Negative ng/mL (Cutoff=200); Cannabinoid Screen,Urine Negative ng/mL (Cutoff = 50); Cocaine Screen,Urine Negative ng/mL (Cutoff= 300); Opiate Screen,Urine Negative ng/mL (Cutoff=300); Phencyclidine Screen,Urine Negative ng/mL (Cutoff=25)
[2019-04-12] MEDS ORDERED: *HR* LORazepam 1 MG TABLET PO PRN (00:26)
[2019-04-12] MEDS ORDERED: Mag Hydrox/Al Hydrox/Simeth 30 ML UDC PO PRN (00:26)
[2019-04-12] MEDS ORDERED: Haloperidol Lactate 5 MG/ML VIAL IM PRN (00:26)
[2019-04-12] MEDS ORDERED: traZODone 50 MG TABLET PO PRN (00:26)
[2019-04-12] MEDS ORDERED: *HR* LORazepam 2 MG/ML VIAL IM PRN (00:26)
[2019-04-12] MEDS: Nicotine 14 MG PATCH.TD24 TD SCH (10:00)
[2019-04-12 10:38] LABS: Basophils % 0.6 %; Eosinophils # 0.2 K/mcL (0.0-0.6); Eosinophils % 2.5 %; Hematocrit 40.2 % (37.5-50.1); Hemoglobin 13.7 g/dL (12.9-16.9); Immature Granulocytes % 0.9 % (0-4); Lymphocytes # 2.4 K/mcL (0.6-4.6); Lymphocytes % 37.6 %; Mean Corpuscular HGB Conc 34.1 g/dL (31.6-35.5); Mean Corpuscular Hemoglobin 32.5 pg (28.0-33.3); Mean Corpuscular Volume 95.5 fL (83.0-100.0); Mean Platelet Volume 9.7 fL (9.4-12.4); Monocytes # 0.8 K/mcL (0.0-1.3); Neutrophils # 2.9 K/mcL (1.6-8.9); Platelet Count 204 K/mcL (140-400); Red Blood Count 4.21 M/mcL (4.19-5.50); Red Cell Distribution Width 13.4 % (11.5-14.5); Segmented Neutrophils % 45.4 %; White Blood Count 6.4 K/mcL (4.3-11.1)
[2019-04-12] MEDS: cloNIDine HCl 0.1 MG TABLET PO SCH ×2 (11:04→21:20)
[2019-04-12] MEDS: BuPROPion XL (24 HR) 150 MG TABLET PO SCH (11:05)
[2019-04-12] MEDS ORDERED: OLANZAPINE 10 MG PO SCH (21:00)
[2019-04-12] MEDS: hydrOXYzine pamoate 25 MG CAPSULE PO PRN (21:20)
[2019-04-12] MEDS: Divalproex (12 HR) 500 MG TABLET PO SCH (21:20)
[2019-04-13] MEDS ORDERED: Divalproex (12 HR) 500 MG TABLET PO SCH (09:00)
[2019-04-13] MEDS: BuPROPion XL (24 HR) 150 MG TABLET PO SCH (09:31)
[2019-04-13] MEDS: cloNIDine HCl 0.1 MG TABLET PO SCH ×2 (09:31→20:51)
[2019-04-13] MEDS: Nicotine 14 MG PATCH.TD24 TD SCH (09:32)
[2019-04-13] MEDS: Ibuprofen 400 MG TABLET PO PRN (20:51)
[2019-04-13] MEDS: hydrOXYzine pamoate 25 MG CAPSULE PO PRN (20:51)
[2019-04-13] MEDS: Divalproex (12 HR) 500 MG TABLET PO SCH (20:51)
[2019-04-14] MEDS: cloNIDine HCl 0.1 MG TABLET PO SCH (08:39)
[2019-04-14] MEDS: BuPROPion XL (24 HR) 150 MG TABLET PO SCH (08:39)
[2019-04-14] MEDS: Nicotine 14 MG PATCH.TD24 TD SCH (08:40)
[2019-04-14 08:59] VITALS: BP 134/82
[2019-04-14] MEDS: Ibuprofen 400 MG TABLET PO PRN (10:34)
[2019-04-14] MEDS ORDERED: Isovue-370 500 ML BOTTLE IVP ONE (10:38)
[2019-04-14] MEDS ORDERED: Acetaminophen 325 MG TABLET PO ONE (10:41)
[2019-04-14] MEDS ORDERED: Tdap (Boostrix) Vaccine 0.5 ML SYRINGE IM ONE (11:53)
[2019-04-14] MEDS ORDERED: Doxycycline 100 MG CAPSULE PO SCH (12:00)
[2019-04-14] MEDS ORDERED: Naloxone 0.4 MG/ML INJ IVP PRN (14:07)
[2019-04-14] MEDS ORDERED: Piperacillin/Tazobactam 3.375 GM in 0.9 % Sodium Chloride Mini Bag 100 ML IVPB SCH (16:00)
[2019-04-14] MEDS ORDERED: OLANZapine 5 MG TAB.RAPDIS PO SCH (21:00)
== END 2019-04-14 15:50 | disposition other institution (70) | DRG 753 ==
LOC: 1ANU 21:01 → EMEROOARM 21:01 → 1ANU 04-12 00:33 → SUATTDRO 04-12 01:16
PROVIDERS: ADMIT Psychiatry & Neurology Psychiatry; ATTEND Psychiatry & Neurology Psychiatry

== ENCOUNTER 2019-04-14 13:38 | Observation (INO) ==
[2019-04-14] MEDS ORDERED: Naloxone 0.4 MG/ML INJ IVP PRN (16:19)
[2019-04-14] MEDS ORDERED: Vancomycin 1,750 MG in 0.9 % Sodium Chloride 250 ML IVPB SCH (17:00)
[2019-04-14] MEDS ORDERED: hydrOXYzine pamoate 25 MG CAPSULE PO PRN (17:04)
[2019-04-14] MEDS: Ketorolac 30 MG/ML VIAL IVP PRN (18:05)
[2019-04-14] MEDS: Piperacillin/Tazobactam 3.375 GM in 0.9 % Sodium Chloride Mini Bag 100 ML IVPB SCH (18:07)
[2019-04-14] MEDS: Silvasorb 44.4 ML TUBE TP SCH ×2 (18:08→20:51)
[2019-04-14] MEDS: *HR* HYDROcodone/Acet 5/325 mg TABLET PO PRN (19:35)
[2019-04-14 19:52] LABS: Basophils # 0.1 K/mcL (0.0-0.2); Basophils % 0.7 %; Eosinophils # 0.2 K/mcL (0.0-0.6); Hematocrit 40.5 % (37.5-50.1); Hemoglobin 13.7 g/dL (12.9-16.9); Lymphocytes # 2.9 K/mcL (0.6-4.6); Lymphocytes % 33.3 %; Mean Corpuscular HGB Conc 33.8 g/dL (31.6-35.5); Mean Corpuscular Hemoglobin 32.5 pg (28.0-33.3); Mean Corpuscular Volume 96.2 fL (83.0-100.0); Mean Platelet Volume 9.4 fL (9.4-12.4); Monocytes # 1.2 K/mcL (0.0-1.3); Neutrophils # 4.4 K/mcL (1.6-8.9); Platelet Count 250 K/mcL (140-400); Red Blood Count 4.21 M/mcL (4.19-5.50); White Blood Count 8.8 K/mcL (4.3-11.1)
[2019-04-14 20:08] LABS: BUN/Creatinine Ratio 20 (6-26); Blood Urea Nitrogen 19 mg/dL (6-20); Carbon Dioxide 29 mEq/L (23-29); Chloride 104 mEq/L (98-107); Glucose 180 mg/dL (70-105); Osmolality,Calculated 297 (280-300); Potassium 4.4 mEq/L (3.5-5.1); Sodium 140 mEq/L (136-145); eGFR For African Americans > 60 (> 60); eGFR For Non-African Americans > 60 (> 60)
[2019-04-14] MEDS: Divalproex (12 HR) 500 MG TABLET PO SCH (20:50)
[2019-04-14] MEDS: cloNIDine HCl 0.1 MG TABLET PO SCH (20:50)
[2019-04-14] MEDS ORDERED: OLANZapine 5 MG TAB.RAPDIS PO SCH (21:00)
[2019-04-14] MEDS ORDERED: *HR* OxyCODONE Immed Rel 5 MG TABLET PO ONE (21:49)
[2019-04-15] MEDS: Piperacillin/Tazobactam 3.375 GM in 0.9 % Sodium Chloride Mini Bag 100 ML IVPB SCH ×3 (00:55→15:43)
[2019-04-15] MEDS: *HR* HYDROcodone/Acet 5/325 mg TABLET PO PRN ×4 (04:03→22:00)
[2019-04-15 04:41] LABS: Basophils # 0.1 K/mcL (0.0-0.2); Basophils % 0.8 %; Eosinophils # 0.2 K/mcL (0.0-0.6); Eosinophils % 2.7 %; Hematocrit 38.7 % (37.5-50.1); Hemoglobin 13.2 g/dL (12.9-16.9); Immature Granulocytes % 1.4 % (0-4); Lymphocytes # 2.8 K/mcL (0.6-4.6); Lymphocytes % 35.6 %; Mean Corpuscular HGB Conc 34.1 g/dL (31.6-35.5); Mean Corpuscular Hemoglobin 32.7 pg (28.0-33.3); Mean Corpuscular Volume 95.8 fL (83.0-100.0); Mean Platelet Volume 9.5 fL (9.4-12.4); Monocytes # 1.1 K/mcL (0.0-1.3); Monocytes % 14.2 %; Neutrophils # 3.6 K/mcL (1.6-8.9); Platelet Count 230 K/mcL (140-400); Red Blood Count 4.04 M/mcL (4.19-5.50); Red Cell Distribution Width 12.9 % (11.5-14.5); Segmented Neutrophils % 45.3 %; White Blood Count 7.9 K/mcL (4.3-11.1)
[2019-04-15 05:22] LABS: Alanine Aminotransferase 180 Units/L (7-52); Albumin 3.2 g/dL (3.5-5.7); Albumin/Globulin Ratio 1.2 (1.1-2.2); Alkaline Phosphatase 70 Units/L (34-104); Aspartate Amino Transferase 83 Units/L (13-39); BUN/Creatinine Ratio 18 (6-26); Bilirubin,Total 0.3 mg/dL (0.3-1.0); Blood Urea Nitrogen 18 mg/dL (6-20); Calcium 8.4 mg/dL (8.6-10.3); Carbon Dioxide 25 mEq/L (23-29); Chloride 105 mEq/L (98-107); Globulin 2.7 g/dL (2.4-3.5); Glucose 224 mg/dL (70-105); Osmolality,Calculated 293 (280-300); Potassium 4.3 mEq/L (3.5-5.1); Sodium 137 mEq/L (136-145); Total Protein 5.9 g/dL (6.4-8.9); eGFR For African Americans > 60 (> 60); eGFR For Non-African Americans > 60 (> 60)
[2019-04-15] MEDS: Divalproex (12 HR) 500 MG TABLET PO SCH ×2 (08:17→22:01)
[2019-04-15] MEDS: BuPROPion XL (24 HR) 150 MG TABLET PO SCH (08:17)
[2019-04-15] MEDS: cloNIDine HCl 0.1 MG TABLET PO SCH ×2 (08:17→22:01)
[2019-04-15] MEDS ORDERED: Nicotine 14 MG PATCH.TD24 TD SCH (09:00)
[2019-04-15] MEDS: Silvasorb 44.4 ML TUBE TP SCH (11:56)
[2019-04-15] MEDS: Ketorolac 30 MG/ML VIAL IVP PRN (15:42)
[2019-04-15] MEDS ORDERED: Nicotine 2 MG GUM BC PRN (20:36)
[2019-04-15] MEDS ORDERED: OLANZapine 10 MG TAB.RAPDIS PO SCH (21:00)
[2019-04-15] MEDS: Gabapentin 300 MG CAPSULE PO SCH (22:01)
[2019-04-16 05:26] LABS: Basophils # 0.1 K/mcL (0.0-0.2); Basophils % 0.9 %; Eosinophils # 0.2 K/mcL (0.0-0.6); Eosinophils % 3.3 %; Hematocrit 41.3 % (37.5-50.1); Hemoglobin 13.9 g/dL (12.9-16.9); Immature Granulocytes % 1.8 % (0-4); Lymphocytes # 2.7 K/mcL (0.6-4.6); Lymphocytes % 40.3 %; Mean Corpuscular HGB Conc 33.7 g/dL (31.6-35.5); Mean Corpuscular Hemoglobin 32.4 pg (28.0-33.3); Mean Corpuscular Volume 96.3 fL (83.0-100.0); Mean Platelet Volume 9.3 fL (9.4-12.4); Monocytes # 0.8 K/mcL (0.0-1.3); Monocytes % 11.4 %; Neutrophils # 2.8 K/mcL (1.6-8.9); Platelet Count 235 K/mcL (140-400); Red Blood Count 4.29 M/mcL (4.19-5.50); Red Cell Distribution Width 12.9 % (11.5-14.5); Segmented Neutrophils % 42.3 %; White Blood Count 6.6 K/mcL (4.3-11.1)
[2019-04-16 05:42] LABS: Alanine Aminotransferase 208 Units/L (7-52); Albumin 3.3 g/dL (3.5-5.7); Albumin/Globulin Ratio 1.2 (1.1-2.2); Alkaline Phosphatase 71 Units/L (34-104); Aspartate Amino Transferase 109 Units/L (13-39); BUN/Creatinine Ratio 11 (6-26); Bilirubin,Total 0.3 mg/dL (0.3-1.0); Blood Urea Nitrogen 12 mg/dL (6-20); Calcium 8.7 mg/dL (8.6-10.3); Carbon Dioxide 30 mEq/L (23-29); Chloride 103 mEq/L (98-107); Globulin 2.7 g/dL (2.4-3.5); Glucose 203 mg/dL (70-105); Osmolality,Calculated 290 (280-300); Potassium 4.3 mEq/L (3.5-5.1); Sodium 137 mEq/L (136-145); eGFR For African Americans > 60 (> 60); eGFR For Non-African Americans > 60 (> 60)
[2019-04-16] MEDS: Piperacillin/Tazobactam 3.375 GM in 0.9 % Sodium Chloride Mini Bag 100 ML IVPB SCH ×2 (08:21)
[2019-04-16] MEDS: *HR* HYDROcodone/Acet 5/325 mg TABLET PO PRN (08:21)
[2019-04-16] MEDS: BuPROPion XL (24 HR) 150 MG TABLET PO SCH (08:21)
[2019-04-16] MEDS: cloNIDine HCl 0.1 MG TABLET PO SCH (08:21)
[2019-04-16] MEDS: Gabapentin 300 MG CAPSULE PO SCH (08:21)
[2019-04-16] MEDS: Divalproex (12 HR) 500 MG TABLET PO SCH (08:21)
[2019-04-16 10:57] VITALS: BP 123/81
[2019-04-16] MEDS: Silvasorb 44.4 ML TUBE TP SCH (11:37)
[2019-04-16] MEDS ORDERED: Aminoglycoside Consult 1 EACH MC ONE (12:47)
== END 2019-04-16 12:48 ==
LOC: 3NENU
PROVIDERS: ADMIT Internal Medicine; ATTEND Internal Medicine

== ENCOUNTER 2019-04-16 12:51 | Inpatient (IN) ==
[2019-04-16] MEDS ORDERED: *HR* LORazepam 2 MG/ML VIAL IM PRN (12:57)
[2019-04-16] MEDS ORDERED: Mag Hydrox/Al Hydrox/Simeth 30 ML UDC PO PRN (12:57)
[2019-04-16] MEDS ORDERED: *HR* LORazepam 1 MG TABLET PO PRN (12:57)
[2019-04-16] MEDS ORDERED: MOM Conc 10 ML UD.LIQ PO PRN (12:57)
[2019-04-16] MEDS ORDERED: Haloperidol Lactate 5 MG/ML VIAL IM PRN (12:57)
[2019-04-16] MEDS: Nicotine 21 MG PATCH.TD24 TD SCH (14:12)
[2019-04-16] MEDS ORDERED: hydrOXYzine pamoate 25 MG CAPSULE PO PRN (14:31)
[2019-04-16] MEDS: Ibuprofen 400 MG TABLET PO SCH (17:36)
[2019-04-16] MEDS: Doxycycline 100 MG CAPSULE PO SCH (20:06)
[2019-04-16] MEDS: OLANZapine 10 MG TAB.RAPDIS PO SCH (20:07)
[2019-04-16] MEDS: cloNIDine HCl 0.1 MG TABLET PO SCH (20:07)
[2019-04-17] MEDS: Ibuprofen 400 MG TABLET PO SCH ×5 (02:01→20:20)
[2019-04-17] MEDS: BuPROPion XL (24 HR) 150 MG TABLET PO SCH (09:08)
[2019-04-17] MEDS: Doxycycline 100 MG CAPSULE PO SCH ×2 (09:09→20:19)
[2019-04-17] MEDS: cloNIDine HCl 0.1 MG TABLET PO SCH ×2 (09:09→20:19)
[2019-04-17] MEDS: Nicotine 21 MG PATCH.TD24 TD SCH (09:10)
[2019-04-17] MEDS: Silvasorb 44.4 ML TUBE TP SCH (09:12)
[2019-04-17] MEDS: Ibuprofen 400 MG TABLET PO PRN (13:13)
[2019-04-17] MEDS: hydrOXYzine pamoate 25 MG CAPSULE PO PRN (20:19)
[2019-04-17] MEDS: OLANZapine 10 MG TAB.RAPDIS PO SCH (20:19)
[2019-04-18] MEDS: Ibuprofen 400 MG TABLET PO SCH ×3 (05:38→17:32)
[2019-04-18] MEDS: Doxycycline 100 MG CAPSULE PO SCH ×2 (09:09→20:06)
[2019-04-18] MEDS: cloNIDine HCl 0.1 MG TABLET PO SCH ×2 (09:10→20:06)
[2019-04-18] MEDS: BuPROPion XL (24 HR) 150 MG TABLET PO SCH ×2 (09:11→10:35)
[2019-04-18] MEDS: Nicotine 21 MG PATCH.TD24 TD SCH (09:12)
[2019-04-18] MEDS: Silvasorb 44.4 ML TUBE TP SCH ×2 (09:50→10:27)
[2019-04-18] MEDS: OLANZapine 10 MG TAB.RAPDIS PO SCH (20:06)
[2019-04-18] MEDS: Ibuprofen 400 MG TABLET PO PRN (20:06)
[2019-04-18] MEDS: hydrOXYzine pamoate 25 MG CAPSULE PO PRN (20:06)
[2019-04-19] MEDS: Ibuprofen 400 MG TABLET PO SCH ×4 (06:28→17:54)
[2019-04-19] MEDS: Nicotine 21 MG PATCH.TD24 TD SCH (08:24)
[2019-04-19] MEDS: cloNIDine HCl 0.1 MG TABLET PO SCH ×2 (08:25→21:03)
[2019-04-19] MEDS: Doxycycline 100 MG CAPSULE PO SCH ×2 (08:25→21:02)
[2019-04-19] MEDS: Silvasorb 44.4 ML TUBE TP SCH (08:26)
[2019-04-19] MEDS: BuPROPion XL (24 HR) 150 MG TABLET PO SCH (08:26)
[2019-04-19] MEDS: OLANZapine 10 MG TAB.RAPDIS PO SCH (21:03)
[2019-04-19] MEDS: Divalproex (12 HR) 500 MG TABLET PO SCH (21:03)
[2019-04-20] MEDS: Ibuprofen 400 MG TABLET PO SCH ×5 (06:44→20:18)
[2019-04-20] MEDS: BuPROPion XL (24 HR) 150 MG TABLET PO SCH (08:29)
[2019-04-20] MEDS: cloNIDine HCl 0.1 MG TABLET PO SCH ×2 (08:30→20:18)
[2019-04-20] MEDS: Divalproex (12 HR) 500 MG TABLET PO SCH ×2 (08:30→20:17)
[2019-04-20] MEDS: Doxycycline 100 MG CAPSULE PO SCH ×2 (08:30→20:17)
[2019-04-20] MEDS: Nicotine 21 MG PATCH.TD24 TD SCH (08:31)
[2019-04-20] MEDS: Silvasorb 44.4 ML TUBE TP SCH (09:10)
[2019-04-20] MEDS: hydrOXYzine pamoate 25 MG CAPSULE PO PRN (20:18)
[2019-04-20] MEDS: OLANZapine 10 MG TAB.RAPDIS PO SCH (20:18)
[2019-04-21] MEDS: Ibuprofen 400 MG TABLET PO PRN (01:43)
[2019-04-21] MEDS: Ibuprofen 400 MG TABLET PO SCH ×3 (07:23→11:30)
[2019-04-21 08:12] VITALS: BP 115/69
[2019-04-21] MEDS: BuPROPion XL (24 HR) 150 MG TABLET PO SCH (08:32)
[2019-04-21] MEDS: Doxycycline 100 MG CAPSULE PO SCH (08:32)
[2019-04-21] MEDS: Nicotine 21 MG PATCH.TD24 TD SCH (08:33)
[2019-04-21] MEDS: cloNIDine HCl 0.1 MG TABLET PO SCH (08:33)
[2019-04-21] MEDS: Divalproex (12 HR) 500 MG TABLET PO SCH (08:33)
[2019-04-21] MEDS: Silvasorb 44.4 ML TUBE TP SCH (11:29)
[2019-04-21] MEDS ORDERED: Gabapentin 300 MG CAPSULE PO SCH (21:00)
== END 2019-04-21 13:30 | disposition home or self-care (01) | DRG 753 ==
LOC: 1ANU 12:51
PROVIDERS: ADMIT Psychiatry & Neurology Psychiatry; ATTEND Psychiatry & Neurology Psychiatry

== ENCOUNTER 2019-06-10 15:47 | Observation (INO) ==
[2019-06-10 17:17] LABS: Basophils # 0.1 K/mcL (0.0-0.2); Basophils % 0.3 %; Eosinophils # 0.1 K/mcL (0.0-0.6); Eosinophils % 0.3 %; Hematocrit 41.5 % (37.5-50.1); Hemoglobin 14.4 g/dL (12.9-16.9); Immature Granulocytes % 0.4 % (0-4); Lymphocytes # 4.2 K/mcL (0.6-4.6); Lymphocytes % 22.7 %; Mean Corpuscular HGB Conc 34.7 g/dL (31.6-35.5); Mean Corpuscular Hemoglobin 31.2 pg (28.0-33.3); Mean Platelet Volume 9.3 fL (9.4-12.4); Monocytes # 1.7 K/mcL (0.0-1.3); Neutrophils # 12.4 K/mcL (1.6-8.9); Platelet Count 273 K/mcL (140-400); Red Blood Count 4.61 M/mcL (4.19-5.50); Red Cell Distribution Width 13.1 % (11.5-14.5); Segmented Neutrophils % 67.3 %; White Blood Count 18.4 K/mcL (4.3-11.1)
[2019-06-10 17:20] LABS: Bacteria,Urine None Seen per hpf (None-Few); Bilirubin,Urine Negative (Negative); Blood,Urine Negative (Negative); Clarity,Urine Turbid (Clear); Color,Urine Yellow (Yellow); Glucose,Urine (UA) Normal (Normal); Ketones,Urine Trace mg/dL (Negative); Leukocyte Esterase,Urine Negative (Negative); Nitrite,Urine Negative (Negative); PH,Urine 5.5 pH Units (5.0-8.0); Protein,Urine 30 mg/dL (Neg-Trace); RBC,Urine 0-3 per hpf (0-3); Specific Gravity,Urine 1.029 (1.010-1.025); Squamous Epithelial Cell,Urine Many per lpf (None-Few); Urobilinogen,Urine Normal (Normal)
[2019-06-10 17:23] LABS: Amphetamine Screen,Urine Positive ng/mL (Cutoff=1000); Barbiturate Screen,Urine Negative ng/mL (Cutoff=200); Benzodiazepines Screen,Urine Negative ng/mL (Cutoff=200); Cannabinoid Screen,Urine Negative ng/mL (Cutoff = 50); Cocaine Screen,Urine Negative ng/mL (Cutoff= 300); Opiate Screen,Urine Negative ng/mL (Cutoff=300); Phencyclidine Screen,Urine Negative ng/mL (Cutoff=25)
[2019-06-10 17:31] LABS: Acetaminophen < 10 mcg/mL (10-20); Alanine Aminotransferase 57 Units/L (7-52); Albumin 4.8 g/dL (3.5-5.7); Albumin/Globulin Ratio 1.3 (1.1-2.2); Alkaline Phosphatase 82 Units/L (34-104); Aspartate Amino Transferase 44 Units/L (13-39); BUN/Creatinine Ratio 17 (6-26); Bilirubin,Direct 0.2 mg/dL (0.0-0.2); Bilirubin,Indirect 0.5 mg/dL (0.0-1.0); Bilirubin,Total 0.7 mg/dL (0.3-1.0); Blood Urea Nitrogen 25 mg/dL (6-20); Calcium 9.3 mg/dL (8.6-10.3); Carbon Dioxide 22 mEq/L (23-29); Chloride 102 mEq/L (98-107); Ethanol < 10 mg/dL (Less than 10); Globulin 3.6 g/dL (2.4-3.5); Glucose 115 mg/dL (70-105); Osmolality,Calculated 283 (280-300); Potassium 3.4 mEq/L (3.5-5.1); Salicylate < 2.5 mg/dL (15.0-30.0); Sodium 134 mEq/L (136-145); Total Protein 8.4 g/dL (6.4-8.9); eGFR For African Americans > 60 (> 60); eGFR For Non-African Americans 57 (> 60)
[2019-06-10 17:35] LABS: Amorphous Sediment,Urine Few per hpf (Few)
[2019-06-10 17:36] LABS: Hyaline Casts,Urine Few per lpf (None-Few)
[2019-06-10] MEDS ORDERED: 0.9 % Sodium Chloride 1,000 ML IV ONE (18:05)
[2019-06-10] MEDS ORDERED: Ketorolac 15 MG/ML VIAL IVP ONE (18:06)
[2019-06-10] MEDS ORDERED: Ampicillin/Sulbactam 3,000 MG in 0.9 % Sodium Chloride Mini Bag 100 ML IVPB ONE (18:07)
[2019-06-10] MEDS ORDERED: Ondansetron 4 MG/2 ML VIAL IVP PRN (19:54)
[2019-06-10] MEDS ORDERED: Naloxone 0.4 MG/ML INJ IVP PRN (19:54)
[2019-06-10] MEDS ORDERED: *HR* HYDROmorphone (PF) 1 MG/ML SYRINGE IVP PRN (20:02)
[2019-06-10] MEDS: 0.9 % Sodium Chloride 1,000 ML IVC SCH (21:45)
[2019-06-11] MEDS ORDERED: Nicotine 14 MG PATCH.TD24 TD SCH (00:15)
[2019-06-11] MEDS: Acetaminophen 325 MG TABLET PO PRN ×2 (01:31→13:48)
[2019-06-11] MEDS: Ampicillin/Sulbactam 3,000 MG in 0.9 % Sodium Chloride Mini Bag 100 ML IVPB SCH ×3 (01:32→13:07)
[2019-06-11] MEDS: *HR* OxyCODONE/APAP 5/325 TABLET PO PRN ×3 (02:38→15:26)
[2019-06-11] MEDS: 0.9 % Sodium Chloride 1,000 ML IVC SCH (05:58)
[2019-06-11] MEDS ORDERED: *HR* Dextrose 50 % in Water (Syg) 50 ML SYRINGE IVP PRN (06:18)
[2019-06-11] MEDS ORDERED: Dextrose Gel 15 GM/37.5 ML TUBE PO PRN ×2 (06:18)
[2019-06-11] MEDS ORDERED: D5% in Water 1,000 ML IVC PRN (06:18)
[2019-06-11] MEDS: Insulin LISPRO 300 UNITS/3 ML VIAL SQ SCH ×2 (07:36→12:35)
[2019-06-11 07:37] LABS: Bilirubin,Urine Negative (Negative); Blood,Urine Trace (Negative); Clarity,Urine Cloudy (Clear); Color,Urine Yellow (Yellow); Glucose,Urine (UA) Normal (Normal); Ketones,Urine Negative (Negative); Leukocyte Esterase,Urine Negative (Negative); Nitrite,Urine Negative (Negative); PH,Urine 5.5 pH Units (5.0-8.0); Protein,Urine Negative (Neg-Trace); Specific Gravity,Urine > 1.030 (1.010-1.025); Urobilinogen,Urine Normal (Normal)
[2019-06-11 07:41] LABS: Squamous Epithelial Cell,Urine Many per lpf (None-Few)
[2019-06-11 08:17] LABS: Amphetamine Screen,Urine Positive ng/mL (Cutoff=1000); Barbiturate Screen,Urine Negative ng/mL (Cutoff=200); Benzodiazepines Screen,Urine Negative ng/mL (Cutoff=300); Cannabinoid Screen,Urine Negative ng/mL (Cutoff = 50); Cocaine Screen,Urine Negative ng/mL (Cutoff= 300); Opiate Screen,Urine Negative ng/mL (Cutoff=300); Phencyclidine Screen,Urine Negative ng/mL (Cutoff=25)
[2019-06-11 08:39] LABS: Bacteria,Urine Few per hpf (None-Few); RBC,Urine 0-3 per hpf (0-3)
[2019-06-11 08:48] LABS: Basophils # 0.1 K/mcL (0.0-0.2); Basophils % 0.6 %; Eosinophils # 0.2 K/mcL (0.0-0.6); Eosinophils % 1.8 %; Hematocrit 37.6 % (37.5-50.1); Immature Granulocytes % 0.6 % (0-4); Lymphocytes # 2.8 K/mcL (0.6-4.6); Lymphocytes % 33.3 %; Mean Corpuscular HGB Conc 33.5 g/dL (31.6-35.5); Mean Corpuscular Hemoglobin 31.2 pg (28.0-33.3); Mean Corpuscular Volume 93.1 fL (83.0-100.0); Mean Platelet Volume 9.2 fL (9.4-12.4); Monocytes # 1.3 K/mcL (0.0-1.3); Monocytes % 15.6 %; Neutrophils # 4.1 K/mcL (1.6-8.9); Platelet Count 228 K/mcL (140-400); Red Blood Count 4.04 M/mcL (4.19-5.50); Red Cell Distribution Width 13.3 % (11.5-14.5); Segmented Neutrophils % 48.1 %
[2019-06-11 08:49] LABS: Hemoglobin 12.6 g/dL (12.9-16.9); White Blood Count 8.5 K/mcL (4.3-11.1)
[2019-06-11 09:06] LABS: BUN/Creatinine Ratio 20 (6-26); Blood Urea Nitrogen 20 mg/dL (6-20); Calcium 8.4 mg/dL (8.6-10.3); Carbon Dioxide 23 mEq/L (23-29); Chloride 105 mEq/L (98-107); Glucose 107 mg/dL (70-105); Magnesium 2.3 mg/dL (1.6-2.6); Osmolality,Calculated 283 (280-300); Sodium 135 mEq/L (136-145); eGFR For African Americans > 60 (> 60); eGFR For Non-African Americans > 60 (> 60)
[2019-06-11 10:40] LABS: Estimated Average Glucose 137 mg/dl
[2019-06-11 11:36] VITALS: BP 134/84
[2019-06-11] MEDS ORDERED: Doxycycline 100 MG CAPSULE PO SCH (13:00)
[2019-06-11] MEDS ORDERED: Melatonin 3 MG TABLET PO PRN (13:03)
[2019-06-11] MEDS ORDERED: hydrOXYzine pamoate 25 MG CAPSULE PO PRN (13:03)
[2019-06-11] MEDS ORDERED: BuPROPion XL (24 HR) 150 MG TABLET PO SCH (13:15)
[2019-06-11] MEDS ORDERED: cloNIDine HCL 0.1 MG TABLET PO SCH (13:15)
[2019-06-11] MEDS ORDERED: Gabapentin 300 MG CAPSULE PO SCH (15:00)
[2019-06-11] MEDS ORDERED: Silvasorb 44.4 ML TUBE TP SCH (15:30)
[2019-06-11] MEDS ORDERED: Nicotine 21 MG PATCH.TD24 TD SCH (15:45)
[2019-06-11] MEDS ORDERED: Nicotine 2 MG GUM BC SCH (16:00)
[2019-06-11] MEDS ORDERED: *HR* Metformin 500 MG TABLET PO SCH (17:00)
[2019-06-11] MEDS ORDERED: Ampicillin/Sulbactam 3,000 MG in 0.9 % Sodium Chloride Mini Bag 100 ML IVPB SCH (18:00)
[2019-06-11] MEDS ORDERED: Insulin LISPRO 300 UNITS/3 ML VIAL SQ SCH (21:00)
[2019-06-11] MEDS ORDERED: OLANZapine 5 MG TAB.RAPDIS PO SCH (21:00)
== END 2019-06-11 17:56 | disposition home or self-care (01) ==
LOC: EMEROOARM 15:47 → 2ANU 15:47
PROVIDERS: ADMIT Student in an Organized Health Care Education/Training Program; ATTEND Student in an Organized Health Care Education/Training Program

== ENCOUNTER 2019-06-27 21:11 | Observation (INO) ==
[2019-06-27 21:42] LABS: Bilirubin,Urine Small (Negative); Blood,Urine Negative (Negative); Clarity,Urine Cloudy (Clear); Color,Urine Dark Yellow (Yellow); Glucose,Urine (UA) Normal (Normal); Ketones,Urine 15 mg/dL (Negative); Leukocyte Esterase,Urine Trace (Negative); Nitrite,Urine Negative (Negative); Protein,Urine Trace mg/dL (Neg-Trace); Specific Gravity,Urine > 1.030 (1.010-1.025)
[2019-06-27 21:45] LABS: RBC,Urine 0-3 per hpf (0-3); Squamous Epithelial Cell,Urine Many per lpf (None-Few)
[2019-06-27 21:47] LABS: Basophils # 0.1 K/mcL (0.0-0.2); Basophils % 0.7 %; Eosinophils # 0.1 K/mcL (0.0-0.6); Eosinophils % 1.4 %; Hematocrit 40.2 % (37.5-50.1); Hemoglobin 13.5 g/dL (12.9-16.9); Immature Granulocytes % 0.5 % (0-4); Lymphocytes # 2.4 K/mcL (0.6-4.6); Lymphocytes % 26.6 %; Mean Corpuscular HGB Conc 33.6 g/dL (31.6-35.5); Mean Corpuscular Hemoglobin 32.6 pg (28.0-33.3); Mean Corpuscular Volume 97.1 fL (83.0-100.0); Mean Platelet Volume 9.4 fL (9.4-12.4); Monocytes # 1.1 K/mcL (0.0-1.3); Monocytes % 11.9 %; Neutrophils # 5.2 K/mcL (1.6-8.9); Platelet Count 305 K/mcL (140-400); Red Blood Count 4.14 M/mcL (4.19-5.50); Red Cell Distribution Width 13.5 % (11.5-14.5); Segmented Neutrophils % 58.9 %; White Blood Count 8.8 K/mcL (4.3-11.1)
[2019-06-27 21:54] LABS: Amphetamine Screen,Urine Positive ng/mL (Cutoff=1000); Barbiturate Screen,Urine Negative ng/mL (Cutoff=200); Benzodiazepines Screen,Urine Negative ng/mL (Cutoff=200); Cannabinoid Screen,Urine Negative ng/mL (Cutoff = 50); Cocaine Screen,Urine Negative ng/mL (Cutoff= 300); Opiate Screen,Urine Negative ng/mL (Cutoff=300); Phencyclidine Screen,Urine Negative ng/mL (Cutoff=25)
[2019-06-27 22:01] LABS: Acetaminophen < 10 mcg/mL (10-20); BUN/Creatinine Ratio 15 (6-26); Blood Urea Nitrogen 22 mg/dL (6-20); Calcium 9.6 mg/dL (8.6-10.3); Carbon Dioxide 28 mEq/L (23-29); Chloride 105 mEq/L (98-107); Ethanol < 10 mg/dL (Less than 10); Glucose 100 mg/dL (70-105); Osmolality,Calculated 295 (280-300); Potassium 4.1 mEq/L (3.5-5.1); Salicylate < 2.5 mg/dL (15.0-30.0); Sodium 141 mEq/L (136-145); eGFR For African Americans > 60 (> 60); eGFR For Non-African Americans 56 (> 60)
[2019-06-27 22:29] LABS: Hyaline Casts,Urine Few per lpf (None-Few); Mucus,Urine Many per lpf (Few); Renal Epithelial Cells,Urine Few per hpf (None-Few)
[2019-06-27 22:30] LABS: Bacteria,Urine Few per hpf (None-Few); Yeast,Urine Few per hpf (None Seen)
[2019-06-28] MEDS ORDERED: *HR* LORazepam 1 MG TABLET PO PRN (00:45)
[2019-06-28] MEDS ORDERED: *HR* LORazepam 2 MG/ML VIAL IM PRN (00:45)
[2019-06-28] MEDS ORDERED: Haloperidol Lactate 5 MG/ML VIAL IM PRN (00:45)
[2019-06-28] MEDS ORDERED: Nicotine 2 MG GUM BC PRN (00:45)
[2019-06-28] MEDS ORDERED: Ibuprofen 400 MG TABLET PO PRN (00:45)
[2019-06-28] MEDS ORDERED: Mag Hydrox/Al Hydrox/Simeth 30 ML UDC PO PRN (00:45)
[2019-06-28] MEDS ORDERED: hydrOXYzine pamoate 25 MG CAPSULE PO PRN (00:45)
[2019-06-28] MEDS ORDERED: QUEtiapine Fumarate 25 MG TABLET PO PRN (00:45)
[2019-06-28] MEDS ORDERED: haloperidoL 5 MG TABLET PO PRN (00:45)
[2019-06-28] MEDS ORDERED: MOM Conc 10 ML UD.LIQ PO PRN (00:45)
[2019-06-28 01:18] LABS: Alanine Aminotransferase 56 Units/L (7-52); Albumin 4.5 g/dL (3.5-5.7); Albumin/Globulin Ratio 1.3 (1.1-2.2); Alkaline Phosphatase 80 Units/L (34-104); Aspartate Amino Transferase 50 Units/L (13-39); Bilirubin,Direct 0.3 mg/dL (0.0-0.2); Bilirubin,Indirect 0.8 mg/dL (0.0-1.0); Bilirubin,Total 1.1 mg/dL (0.3-1.0); Globulin 3.4 g/dL (2.4-3.5); Total Protein 7.9 g/dL (6.4-8.9)
[2019-06-28] MEDS ORDERED: chlorproMAZINE 25 MG TABLET PO PRN (08:56)
[2019-06-28 09:17] VITALS: BP 147/87
== END 2019-06-28 10:15 | disposition home or self-care (01) ==
LOC: 1ANU 21:11 → EMEROOARM 21:11 → 1ANU 06-28 01:40
PROVIDERS: ADMIT Psychiatry & Neurology Psychiatry; ATTEND Psychiatry & Neurology Psychiatry

== ENCOUNTER 2019-11-02 18:20 | Inpatient (IN) ==
[2019-11-02] MEDS ORDERED: Tdap (Boostrix) Vaccine 0.5 ML SYRINGE IM ONE (18:44)
[2019-11-02 19:01] LABS: Basophils # 0.1 K/mcL (0.0-0.2); Basophils % 0.2 %; Eosinophils # 0.1 K/mcL (0.0-0.6); Eosinophils % 0.4 %; Hemoglobin 13.3 g/dL (12.9-16.9); Immature Granulocytes % 0.5 % (0-4); Lymphocytes # 3.1 K/mcL (0.6-4.6); Lymphocytes % 14.5 %; Mean Corpuscular HGB Conc 34.1 g/dL (31.6-35.5); Mean Corpuscular Hemoglobin 30.5 pg (28.0-33.3); Mean Corpuscular Volume 89.4 fL (83.0-100.0); Mean Platelet Volume 9.6 fL (9.4-12.4); Monocytes # 2.4 K/mcL (0.0-1.3); Monocytes % 11.1 %; Neutrophils # 15.8 K/mcL (1.6-8.9); Platelet Count 282 K/mcL (140-400); Red Blood Count 4.36 M/mcL (4.19-5.50); Red Cell Distribution Width 13.3 % (11.5-14.5); Segmented Neutrophils % 73.3 %; White Blood Count 21.5 K/mcL (4.3-11.1)
[2019-11-02 19:08] LABS: Amphetamine Screen,Urine Positive ng/mL (Cutoff=1000); Barbiturate Screen,Urine Negative ng/mL (Cutoff=200); Benzodiazepines Screen,Urine Negative ng/mL (Cutoff=200); Cannabinoid Screen,Urine Positive ng/mL (Cutoff = 50); Cocaine Screen,Urine Negative ng/mL (Cutoff= 300); Opiate Screen,Urine Negative ng/mL (Cutoff=300); Phencyclidine Screen,Urine Negative ng/mL (Cutoff=25)
[2019-11-02 19:10] LABS: Bacteria,Urine Few per hpf (None-Few); Bilirubin,Urine Negative (Negative); Blood,Urine Negative (Negative); Clarity,Urine Turbid (Clear); Color,Urine Yellow (Yellow); Glucose,Urine (UA) 30 mg/dL (Normal); Hyaline Casts,Urine Few per lpf (None Seen); Ketones,Urine Negative (Negative); Leukocyte Esterase,Urine Negative (Negative); Mucus,Urine Moderate per lpf (None-Few); Nitrite,Urine Negative (Negative); Protein,Urine 30 mg/dL (Neg-Trace); RBC,Urine 0-3 per hpf (0-3); Specific Gravity,Urine 1.024 (1.010-1.025); Squamous Epithelial Cell,Urine Few per hpf (None-Few)
[2019-11-02] MEDS ORDERED: Ziprasidone 20 MG in Water for inj. (sterile) 1 ML IM ONE (19:16)
[2019-11-02 19:18] LABS: Acetaminophen < 10 mcg/mL (10-20); BUN/Creatinine Ratio 12 (6-26); Blood Urea Nitrogen 9 mg/dL (6-20); Carbon Dioxide 24 mEq/L (23-29); Chloride 97 mEq/L (98-107); Ethanol < 10 mg/dL (Less than 10); Glucose 109 mg/dL (70-105); Osmolality,Calculated 271 (280-300); Potassium 3.7 mEq/L (3.5-5.1); Salicylate < 2.5 mg/dL (15.0-30.0); Sodium 131 mEq/L (136-145); eGFR For African Americans > 60 (> 60); eGFR For Non-African Americans > 60 (> 60)
[2019-11-02] MEDS ORDERED: hydrOXYzine pamoate 25 MG CAPSULE PO STA (19:26)
[2019-11-02] MEDS ORDERED: Ketorolac 30 MG/ML VIAL IM ONE (20:17)
[2019-11-02 23:13] LABS: Adenovirus Not Detected (Not Detect); Bordetella Pertussis Not Detected (Not Detect); Chlamydophila pneumoniae Not Detected (Not Detect); Coronavirus 229E Not Detected (Not Detect); Coronavirus HKU1 Not Detected (Not Detect); Coronavirus NL63 Not Detected (Not Detect); Coronavirus OC43 Not Detected (Not Detect); Human Metapneumovirus Not Detected (Not Detect); Human Rhinovirus/Enterovirus Not Detected (Not Detect); Influenza A Subtype 2009 H1 Not Detected (Not Detect); Influenza B Not Detected (Not Detect); Mycoplasma pneumoniae Not Detected (Not Detect); Parainfluenza Virus 1 Not Detected (Not Detect); Parainfluenza Virus 2 Not Detected (Not Detect); Parainfluenza Virus 3 Not Detected (Not Detect); Parainfluenza Virus 4 Not Detected (Not Detect); Respiratory Syncytial Virus Not Detected (Not Detect)
[2019-11-03] MEDS ORDERED: Acetaminophen 325 MG TABLET PO ONE (05:25)
[2019-11-03 08:46] LABS: Basophils % 0.4 %; Eosinophils # 0.2 K/mcL (0.0-0.6); Eosinophils % 1.9 %; Hematocrit 37.8 % (37.5-50.1); Hemoglobin 12.8 g/dL (12.9-16.9); Immature Granulocytes % 0.5 % (0-4); Lymphocytes # 3.1 K/mcL (0.6-4.6); Lymphocytes % 36.5 %; Mean Corpuscular HGB Conc 33.9 g/dL (31.6-35.5); Mean Corpuscular Hemoglobin 30.4 pg (28.0-33.3); Mean Corpuscular Volume 89.8 fL (83.0-100.0); Mean Platelet Volume 9.8 fL (9.4-12.4); Monocytes # 1.3 K/mcL (0.0-1.3); Monocytes % 15.8 %; Neutrophils # 3.8 K/mcL (1.6-8.9); Platelet Count 229 K/mcL (140-400); Red Blood Count 4.21 M/mcL (4.19-5.50); Red Cell Distribution Width 13.4 % (11.5-14.5); Segmented Neutrophils % 44.9 %
[2019-11-03 08:48] LABS: White Blood Count 8.5 K/mcL (4.3-11.1)
[2019-11-03 09:29] LABS: Albumin 3.4 g/dL (3.5-5.7); Albumin/Globulin Ratio 1.3 (1.1-2.2); Bilirubin,Direct 0.5 mg/dL (0.0-0.2); Bilirubin,Indirect 0.7 mg/dL (0.0-1.0); Bilirubin,Total 1.2 mg/dL (0.3-1.0); Globulin 2.7 g/dL (2.4-3.5); Total Protein 6.1 g/dL (6.4-8.9)
[2019-11-03 10:21] LABS: Prothrombin Time 11.9 Seconds (9.4-12.1)
[2019-11-03] MEDS ORDERED: Naloxone 0.4 MG/ML INJ IVP PRN ×2 (10:45→10:46)
[2019-11-03] MEDS ORDERED: Ondansetron 4 MG/2 ML VIAL IVP PRN (10:46)
[2019-11-03] MEDS ORDERED: Dextrose Gel 15 GM/37.5 ML TUBE PO PRN ×2 (11:34)
[2019-11-03] MEDS ORDERED: *HR* Dextrose 50 % in Water (Vial) 50 ML VIAL IVP PRN (11:34)
[2019-11-03] MEDS ORDERED: D5% in Water 1,000 ML IVC PRN (11:34)
[2019-11-03 12:40] LABS: Hepatitis A Antibody IgM Nonreactive (Nonreactive)
[2019-11-03] MEDS: Ketorolac 15 MG/ML VIAL IVP PRN ×2 (12:54→21:27)
[2019-11-03 13:21] LABS: Hepatitis B Core IgM Reactive (Nonreactive); Hepatitis B Surface Antigen Reactive (Nonreactive)
[2019-11-03 14:21] LABS: Hepatitis C Virus Antibody Reactive (Nonreactive)
[2019-11-03] MEDS: *HR* Heparin 5,000 UNIT/ML VIAL SQ SCH (14:29)
[2019-11-03] MEDS: Nicotine 14 MG PATCH.TD24 TD SCH (15:21)
[2019-11-03] MEDS ORDERED: ChlorproMAZINE 25 MG/ML AMPUL IM PRN (16:37)
[2019-11-03] MEDS: Insulin LISPRO 300 UNITS/3 ML VIAL SQ SCH (17:08)
[2019-11-03] MEDS ORDERED: *HR* HYDROcodone/Acet 5/325 mg TABLET PO ONE ×2 (18:16→22:02)
[2019-11-03] MEDS: Ampicillin/Sulbactam 1,500 MG in 0.9 % Sodium Chloride Mini Bag 100 ML IVPB SCH ×2 (18:17→23:50)
[2019-11-03] MEDS: 0.9 % Sodium Chloride 1,000 ML IVC SCH ×2 (18:17→23:55)
[2019-11-04 03:24] LABS: Basophils % 0.3 %; Eosinophils # 0.1 K/mcL (0.0-0.6); Eosinophils % 2.4 %; Hematocrit 36.8 % (37.5-50.1); Hemoglobin 12.3 g/dL (12.9-16.9); Immature Granulocytes % 0.5 % (0-4); Lymphocytes # 2.1 K/mcL (0.6-4.6); Lymphocytes % 35.8 %; Mean Corpuscular HGB Conc 33.4 g/dL (31.6-35.5); Mean Corpuscular Hemoglobin 30.4 pg (28.0-33.3); Mean Corpuscular Volume 91.1 fL (83.0-100.0); Mean Platelet Volume 10.1 fL (9.4-12.4); Monocytes % 17.2 %; Neutrophils # 2.5 K/mcL (1.6-8.9); Platelet Count 238 K/mcL (140-400); Red Blood Count 4.04 M/mcL (4.19-5.50); Red Cell Distribution Width 13.7 % (11.5-14.5); Segmented Neutrophils % 43.8 %; White Blood Count 5.8 K/mcL (4.3-11.1)
[2019-11-04 04:02] LABS: Alanine Aminotransferase 1063 Units/L (7-52); Albumin 2.9 g/dL (3.5-5.7); Albumin/Globulin Ratio 1.2 (1.1-2.2); Alkaline Phosphatase 100 Units/L (34-104); Aspartate Amino Transferase 767 Units/L (13-39); BUN/Creatinine Ratio 16 (6-26); Bilirubin,Direct 0.4 mg/dL (0.0-0.2); Bilirubin,Indirect 0.5 mg/dL (0.0-1.0); Bilirubin,Total 0.9 mg/dL (0.3-1.0); Blood Urea Nitrogen 10 mg/dL (6-20); Calcium 8.2 mg/dL (8.6-10.3); Carbon Dioxide 28 mEq/L (23-29); Chloride 107 mEq/L (98-107); Globulin 2.5 g/dL (2.4-3.5); Glucose 108 mg/dL (70-105); Osmolality,Calculated 292 (280-300); Potassium 3.9 mEq/L (3.5-5.1); Sodium 141 mEq/L (136-145); Total Protein 5.4 g/dL (6.4-8.9); eGFR For African Americans > 60 (> 60); eGFR For Non-African Americans > 60 (> 60)
[2019-11-04] MEDS: *HR* Heparin 5,000 UNIT/ML VIAL SQ SCH ×2 (05:05→19:33)
[2019-11-04] MEDS: Ampicillin/Sulbactam 1,500 MG in 0.9 % Sodium Chloride Mini Bag 100 ML IVPB SCH ×2 (05:20→11:53)
[2019-11-04] MEDS: 0.9 % Sodium Chloride 1,000 ML IVC SCH ×3 (05:20→21:43)
[2019-11-04] MEDS: Ketorolac 15 MG/ML VIAL IVP PRN ×2 (05:52→11:52)
[2019-11-04] MEDS: Insulin LISPRO 300 UNITS/3 ML VIAL SQ SCH ×3 (09:50→19:05)
[2019-11-04 11:45] LABS: Prothrombin Time 11.2 Seconds (9.4-12.1)
[2019-11-04] MEDS: Nicotine 14 MG PATCH.TD24 TD SCH (11:51)
[2019-11-04] MEDS: *HR* LORazepam 2 MG/ML VIAL IVP PRN ×2 (12:17→20:06)
[2019-11-04] MEDS: Sennosides/Docusate Sodium TABLET PO SCH (13:04)
[2019-11-04] MEDS ORDERED: 0.9 % Sodium Chloride 1,000 ML IVC SCH (14:45)
[2019-11-05] MEDS: 0.9 % Sodium Chloride 1,000 ML IVC SCH ×2 (00:15→04:35)
[2019-11-05] MEDS: *HR* Heparin 5,000 UNIT/ML VIAL SQ SCH (05:01)
[2019-11-05] MEDS: Insulin LISPRO 300 UNITS/3 ML VIAL SQ SCH (07:30)
[2019-11-05 08:57] LABS: Hematocrit 39.8 % (37.5-50.1); Hemoglobin 13.1 g/dL (12.9-16.9); Mean Corpuscular HGB Conc 32.9 g/dL (31.6-35.5); Mean Corpuscular Hemoglobin 30.7 pg (28.0-33.3); Mean Corpuscular Volume 93.2 fL (83.0-100.0); Mean Platelet Volume 9.6 fL (9.4-12.4); Platelet Count 242 K/mcL (140-400); Red Blood Count 4.27 M/mcL (4.19-5.50); Red Cell Distribution Width 14.2 % (11.5-14.5); White Blood Count 5.8 K/mcL (4.3-11.1)
[2019-11-05] MEDS: Sennosides/Docusate Sodium TABLET PO SCH (09:00)
[2019-11-05] MEDS: Nicotine 14 MG PATCH.TD24 TD SCH (09:00)
[2019-11-05 09:06] LABS: Prothrombin Time 11.3 Seconds (9.4-12.1)
[2019-11-05 09:08] LABS: Activated Partial Thrombo Time 28.8 Seconds (26.0-36.0)
[2019-11-05] MEDS: *HR* LORazepam 2 MG/ML VIAL IVP PRN ×2 (09:19→15:11)
[2019-11-05 09:33] LABS: Alanine Aminotransferase 1204 Units/L (7-52); Albumin 3.1 g/dL (3.5-5.7); Albumin/Globulin Ratio 1.1 (1.1-2.2); Alkaline Phosphatase 115 Units/L (34-104); Aspartate Amino Transferase 836 Units/L (13-39); BUN/Creatinine Ratio 8 (6-26); Bilirubin,Direct 0.3 mg/dL (0.0-0.2); Bilirubin,Indirect 0.3 mg/dL (0.0-1.0); Bilirubin,Total 0.6 mg/dL (0.3-1.0); Blood Urea Nitrogen 5 mg/dL (6-20); Calcium 8.6 mg/dL (8.6-10.3); Carbon Dioxide 29 mEq/L (23-29); Chloride 106 mEq/L (98-107); Globulin 2.9 g/dL (2.4-3.5); Glucose 90 mg/dL (70-105); Osmolality,Calculated 285 (280-300); Sodium 139 mEq/L (136-145); eGFR For African Americans > 60 (> 60); eGFR For Non-African Americans > 60 (> 60)
[2019-11-05 10:54] VITALS: BP 148/93
[2019-11-07 11:34] LABS: HBV Quant Log by PCR 4.57 log IU/mL
[2019-11-07 14:36] LABS: HBV Quant Interpretation DETECTED (Not Detected)
[2019-11-09 15:16] LABS: HCV Quant Interpretation DETECTED (Not Detected); HCV Quant Log 6.68 log IU/mL
== END 2019-11-05 15:38 | disposition other institution (70) ==
LOC: EMEROOARM 18:20 → SUATTDRO 11-03 10:45 → INTOOBSV 11-03 11:26 → 3BNU 11-03 11:26
PROVIDERS: ADMIT Internal Medicine; ATTEND Internal Medicine
PROC: ENDOEBX (2019-11-05 09:45)

== ENCOUNTER 2019-11-05 15:11 | Inpatient (IN) ==
[2019-11-05] MEDS ORDERED: chlorproMAZINE 25 MG TABLET PO PRN (15:14)
[2019-11-05] MEDS ORDERED: ChlorproMAZINE 25 MG/ML AMPUL IM PRN (15:15)
[2019-11-05] MEDS ORDERED: *HR* LORazepam 2 MG/ML VIAL IM PRN (15:17)
[2019-11-05] MEDS ORDERED: Ondansetron ODT 4 MG TAB.RAPDIS SL PRN (15:19)
[2019-11-05] MEDS: Ibuprofen 400 MG TABLET PO PRN (21:05)
[2019-11-05] MEDS: *HR* LORazepam 1 MG TABLET PO PRN (21:05)
[2019-11-06] MEDS: *HR* LORazepam 1 MG TABLET PO PRN (08:46)
[2019-11-06] MEDS: Ibuprofen 400 MG TABLET PO PRN (08:47)
[2019-11-06 08:51] VITALS: BP 151/108
[2019-11-06] MEDS ORDERED: Nicotine 14 MG PATCH.TD24 TD SCH (09:00)
== END 2019-11-06 11:17 | disposition home or self-care (01) | DRG 750 ==
LOC: 1ANU 15:11
PROVIDERS: ADMIT Psychiatry & Neurology Psychiatry; ATTEND Psychiatry & Neurology Psychiatry

== ENCOUNTER 2020-04-08 19:20 | Inpatient (IN) ==
[2020-04-08 19:55] LABS: Basophils % 0.2 %; Eosinophils # 0.1 K/mcL (0.0-0.6); Eosinophils % 0.7 %; Hematocrit 42.1 % (37.5-50.1); Hemoglobin 14.2 g/dL (12.9-16.9); Immature Granulocytes % 0.4 % (0-4); Lymphocytes # 3.1 K/mcL (0.6-4.6); Mean Corpuscular HGB Conc 33.7 g/dL (31.6-35.5); Mean Corpuscular Hemoglobin 30.7 pg (28.0-33.3); Mean Corpuscular Volume 91.1 fL (83.0-100.0); Mean Platelet Volume 9.3 fL (9.4-12.4); Monocytes # 0.8 K/mcL (0.0-1.3); Monocytes % 7.7 %; Neutrophils # 6.2 K/mcL (1.6-8.9); Platelet Count 255 K/mcL (140-400); Red Blood Count 4.62 M/mcL (4.19-5.50); Red Cell Distribution Width 12.9 % (11.5-14.5); White Blood Count 10.2 K/mcL (4.3-11.1)
[2020-04-08 19:58] LABS: Bilirubin,Urine Negative (Negative); Blood,Urine Negative (Negative); Clarity,Urine Clear (Clear); Color,Urine Light-Yellow (Yellow); Glucose,Urine (UA) Normal (Normal); Ketones,Urine Negative (Negative); Leukocyte Esterase,Urine Negative (Negative); Nitrite,Urine Negative (Negative); PH,Urine 6.5 pH Units (5.0-8.0); Protein,Urine Negative (Neg-Trace); Specific Gravity,Urine 1.023 (1.010-1.025); Urobilinogen,Urine Normal (Normal)
[2020-04-08 20:15] LABS: Acetaminophen < 10 mcg/mL (10-20); BUN/Creatinine Ratio 10 (6-26); Blood Urea Nitrogen 8 mg/dL (6-20); Calcium 8.9 mg/dL (8.6-10.3); Carbon Dioxide 26 mEq/L (23-29); Chloride 104 mEq/L (98-107); Ethanol < 10 mg/dL (Less than 10); Glucose 167 mg/dL (70-105); Osmolality,Calculated 286 (280-300); Potassium 3.6 mEq/L (3.5-5.1); Salicylate < 2.5 mg/dL (15.0-30.0); Sodium 137 mEq/L (136-145); eGFR For African Americans > 60 (> 60); eGFR For Non-African Americans > 60 (> 60)
[2020-04-08 20:16] LABS: Amphetamine Screen,Urine Negative ng/mL (Cutoff=1000); Barbiturate Screen,Urine Negative ng/mL (Cutoff=200); Benzodiazepines Screen,Urine Negative ng/mL (Cutoff=200); Cannabinoid Screen,Urine Negative ng/mL (Cutoff = 50); Cocaine Screen,Urine Negative ng/mL (Cutoff= 300); Opiate Screen,Urine Negative ng/mL (Cutoff=300); Phencyclidine Screen,Urine Negative ng/mL (Cutoff=25)
[2020-04-08] MEDS ORDERED: Lidocaine/EPI 1:100k 1% 50 ML VIAL INFILT ONE (21:22)
[2020-04-08 22:25] LABS: Influenza A PCR Negative (Negative); Influenza B PCR Negative (Negative); Resp. Syncytial Virus PCR Negative (Negative)
[2020-04-08 22:26] LABS: SARS-CoV-2 by PCR (In House) Negative (Negative)
[2020-04-08] MEDS: Tdap (Boostrix) Vaccine 0.5 ML SYRINGE IM ONE ×2 (22:58→23:03)
[2020-04-08] MEDS ORDERED: MOM Conc 10 ML UD.LIQ PO PRN (23:56)
[2020-04-08] MEDS ORDERED: Acetaminophen 325 MG TABLET PO PRN (23:56)
[2020-04-08] MEDS ORDERED: Haloperidol Lactate 5 MG/ML VIAL IM PRN (23:56)
[2020-04-08] MEDS ORDERED: *HR* LORazepam 2 MG/ML VIAL IM PRN (23:56)
[2020-04-08] MEDS ORDERED: hydrOXYzine pamoate 25 MG CAPSULE PO PRN (23:56)
[2020-04-08] MEDS ORDERED: *HR* LORazepam 1 MG TABLET PO PRN (23:56)
[2020-04-08] MEDS ORDERED: haloperidoL 5 MG TABLET PO PRN (23:56)
[2020-04-08] MEDS ORDERED: Mag Hydrox/Al Hydrox/Simeth 30 ML UDC PO PRN (23:56)
[2020-04-09] MEDS: Ibuprofen 400 MG TABLET PO PRN ×3 (00:24→19:59)
[2020-04-09] MEDS: Nicotine 14 MG PATCH.TD24 TD SCH (09:02)
[2020-04-09] MEDS ORDERED: Td (TENIVAC) Vaccine 0.5 ML VIAL IM ONE (10:41)
[2020-04-09] MEDS: ARIPiprazole 5 MG TABLET PO SCH (11:51)
[2020-04-09] MEDS: Melatonin 3 MG TABLET PO SCH (19:59)
[2020-04-10] MEDS: Nicotine 14 MG PATCH.TD24 TD SCH (08:11)
[2020-04-10] MEDS: ARIPiprazole 5 MG TABLET PO SCH (08:13)
[2020-04-10] MEDS: Ibuprofen 400 MG TABLET PO PRN ×3 (08:14→20:09)
[2020-04-10] MEDS: hydrOXYzine pamoate 25 MG CAPSULE PO PRN ×2 (11:57→16:05)
[2020-04-10 12:19] LABS: Chol/HDL Ratio 3.6 (0-4.9)
[2020-04-10 12:32] LABS: Thyroid Stimulating Hormone 0.507 mcIU/mL (0.340-5.600)
[2020-04-10 13:58] LABS: Estimated Average Glucose 120 mg/dl; Hemoglobin A1C 5.8 %
[2020-04-10] MEDS: Melatonin 3 MG TABLET PO SCH (20:08)
[2020-04-11] MEDS: Nicotine 14 MG PATCH.TD24 TD SCH (08:15)
[2020-04-11] MEDS: ARIPiprazole 5 MG TABLET PO SCH (08:15)
[2020-04-11] MEDS: hydrOXYzine pamoate 25 MG CAPSULE PO PRN ×4 (08:25→20:25)
[2020-04-11] MEDS: Ibuprofen 400 MG TABLET PO PRN ×2 (11:35→17:57)
[2020-04-11] MEDS ORDERED: Acetaminophen 325 MG TABLET PO PRN (18:41)
[2020-04-11] MEDS: Melatonin 3 MG TABLET PO SCH (20:24)
[2020-04-12] MEDS: Nicotine 14 MG PATCH.TD24 TD SCH (08:40)
[2020-04-12] MEDS: Ibuprofen 400 MG TABLET PO PRN (08:42)
[2020-04-12] MEDS: ARIPiprazole 5 MG TABLET PO SCH (08:42)
[2020-04-12] MEDS ORDERED: ARIPiprazole 2 MG TABLET PO SCH (09:00)
[2020-04-12] MEDS: hydrOXYzine pamoate 25 MG CAPSULE PO PRN (09:22)
[2020-04-12 09:25] VITALS: BP 152/91
== END 2020-04-12 10:15 | disposition home or self-care (01) | DRG 750 ==
LOC: EMEROOARM 19:20 → 1ANU 23:54
PROVIDERS: ADMIT Psychiatry & Neurology Psychiatry; ATTEND Psychiatry & Neurology Psychiatry

== ENCOUNTER 2020-04-19 12:22 | Inpatient (IN) ==
[2020-04-19 13:16] LABS: Basophils # 0.1 K/mcL (0.0-0.2); Basophils % 0.6 %; Eosinophils # 0.1 K/mcL (0.0-0.6); Eosinophils % 0.8 %; Hematocrit 41.9 % (37.5-50.1); Hemoglobin 13.9 g/dL (12.9-16.9); Immature Granulocytes % 0.3 % (0-4); Lymphocytes # 3.4 K/mcL (0.6-4.6); Lymphocytes % 35.4 %; Mean Corpuscular HGB Conc 33.2 g/dL (31.6-35.5); Mean Corpuscular Hemoglobin 29.9 pg (28.0-33.3); Mean Corpuscular Volume 90.1 fL (83.0-100.0); Mean Platelet Volume 9.2 fL (9.4-12.4); Monocytes % 10.5 %; Platelet Count 260 K/mcL (140-400); Red Blood Count 4.65 M/mcL (4.19-5.50); Red Cell Distribution Width 13.2 % (11.5-14.5); Segmented Neutrophils % 52.4 %; White Blood Count 9.5 K/mcL (4.3-11.1)
[2020-04-19 13:29] LABS: Bilirubin,Urine Negative (Negative); Blood,Urine Negative (Negative); Clarity,Urine Clear (Clear); Color,Urine Yellow (Yellow); Glucose,Urine (UA) Normal (Normal); Ketones,Urine Trace mg/dL (Negative); Leukocyte Esterase,Urine Negative (Negative); Nitrite,Urine Negative (Negative); PH,Urine 6.5 pH Units (5.0-8.0); Protein,Urine Trace mg/dL (Neg-Trace); Specific Gravity,Urine 1.028 (1.010-1.025)
[2020-04-19] MEDS ORDERED: *HR* LORazepam 2 MG/ML VIAL IM ONE (13:32)
[2020-04-19 13:33] LABS: Acetaminophen < 10 mcg/mL (10-20); BUN/Creatinine Ratio 15 (6-26); Blood Urea Nitrogen 14 mg/dL (6-20); Calcium 9.3 mg/dL (8.6-10.3); Carbon Dioxide 27 mEq/L (23-29); Chloride 106 mEq/L (98-107); Chol/HDL Ratio 3.2 (0-4.9); Cholesterol 164 mg/dL (< 200); Ethanol < 10 mg/dL (Less than 10); Glucose 83 mg/dL (70-105); HDL Cholesterol 51 mg/dL (40-59); LDL Cholesterol,Calculated 99 mg/dL (< 100); Osmolality,Calculated 292 (280-300); Potassium 3.7 mEq/L (3.5-5.1); Salicylate < 2.5 mg/dL (15.0-30.0); Sodium 141 mEq/L (136-145); Triglycerides 70 mg/dL (< 150); eGFR For African Americans > 60 (> 60); eGFR For Non-African Americans > 60 (> 60)
[2020-04-19 13:44] LABS: Amphetamine Screen,Urine Negative ng/mL (Cutoff=1000); Barbiturate Screen,Urine Negative ng/mL (Cutoff=200); Benzodiazepines Screen,Urine Negative ng/mL (Cutoff=200); Cannabinoid Screen,Urine Negative ng/mL (Cutoff = 50); Cocaine Screen,Urine Negative ng/mL (Cutoff= 300); Opiate Screen,Urine Negative ng/mL (Cutoff=300); Phencyclidine Screen,Urine Negative ng/mL (Cutoff=25)
[2020-04-19 14:09] LABS: Estimated Average Glucose 114 mg/dl; Hemoglobin A1C 5.6 %
[2020-04-19] MEDS ORDERED: Ibuprofen 400 MG TABLET PO PRN (16:10)
[2020-04-19] MEDS ORDERED: Haloperidol Lactate 5 MG/ML VIAL IM PRN (16:11)
[2020-04-19] MEDS ORDERED: MOM Conc 10 ML UD.LIQ PO PRN (16:11)
[2020-04-19] MEDS ORDERED: *HR* LORazepam 2 MG/ML VIAL IM PRN (16:11)
[2020-04-19] MEDS ORDERED: haloperidoL 5 MG TABLET PO PRN (16:11)
[2020-04-19] MEDS ORDERED: Mag Hydrox/Al Hydrox/Simeth 30 ML UDC PO PRN (16:11)
[2020-04-19] MEDS ORDERED: *HR* LORazepam 1 MG TABLET PO PRN (16:11)
[2020-04-19] MEDS: hydrOXYzine pamoate 25 MG CAPSULE PO PRN (17:01)
[2020-04-19] MEDS: Melatonin 3 MG TABLET PO SCH (21:43)
[2020-04-20] MEDS: hydrOXYzine pamoate 25 MG CAPSULE PO PRN (06:59)
[2020-04-20] MEDS: ARIPiprazole 5 MG TABLET PO SCH (09:02)
[2020-04-20] MEDS: ARIPiprazole 2 MG TABLET PO SCH (09:02)
[2020-04-20] MEDS: Nicotine 14 MG PATCH.TD24 TD SCH (09:03)
[2020-04-20] MEDS: FLUoxetine 20 MG CAPSULE PO SCH (11:02)
[2020-04-20] MEDS: hydrOXYzine pamoate 25 MG CAPSULE PO SCH ×3 (11:09→20:21)
[2020-04-20] MEDS ORDERED: PHENYLEPHRINE INTRACAVER PRN (11:10)
[2020-04-20] MEDS ORDERED: SODIUM CHLORIDE 0.9% INTRACAVER PRN (11:10)
[2020-04-20] MEDS ORDERED: Lidocaine -MPF 2% 5 ML VIAL INFILT ONE (11:32)
[2020-04-20] MEDS ORDERED: Phenylephrine 500 MCG in 0.9 % Sodium Chloride 1 ML INTRACAVER PRN (11:50)
[2020-04-20] MEDS ORDERED: Ketorolac 15 MG/ML VIAL IM ONE (12:46)
[2020-04-20] MEDS ORDERED: Ketorolac 30 MG/ML VIAL IM ONE (13:32)
[2020-04-20] MEDS: Ibuprofen 600 MG TABLET PO PRN (14:38)
[2020-04-20] MEDS ORDERED: hydrOXYzine pamoate 25 MG CAPSULE PO SCH (15:00)
[2020-04-20] MEDS: Melatonin 3 MG TABLET PO SCH (20:21)
[2020-04-21] MEDS: Ibuprofen 600 MG TABLET PO PRN ×2 (04:42→13:01)
[2020-04-21] MEDS: Nicotine 14 MG PATCH.TD24 TD SCH (08:05)
[2020-04-21] MEDS: ARIPiprazole 2 MG TABLET PO SCH (08:06)
[2020-04-21] MEDS: FLUoxetine 20 MG CAPSULE PO SCH (08:06)
[2020-04-21] MEDS: ARIPiprazole 5 MG TABLET PO SCH (08:06)
[2020-04-21] MEDS: hydrOXYzine pamoate 25 MG CAPSULE PO SCH ×2 (08:08→15:02)
[2020-04-21 08:21] VITALS: BP 124/84
[2020-04-21] MEDS ORDERED: Ketorolac 30 MG/ML VIAL IM ONE (10:50)
[2020-04-21] MEDS ORDERED: Ketorolac 15 MG/ML VIAL IM ONE (11:15)
== END 2020-04-21 16:10 | disposition home or self-care (01) | DRG 750 ==
LOC: EMEROOARM 12:22 → 1ANU 16:04
PROVIDERS: ADMIT Psychiatry & Neurology Psychiatry; ATTEND Psychiatry & Neurology Psychiatry

== ENCOUNTER 2020-05-16 16:41 | Inpatient (IN) ==
[2020-05-16] MEDS ORDERED: Tdap (Boostrix) Vaccine 0.5 ML SYRINGE IM ONE (16:56)
[2020-05-16 17:40] LABS: Basophils # 0.1 K/mcL (0.0-0.2); Basophils % 0.5 %; Eosinophils # 0.3 K/mcL (0.0-0.6); Eosinophils % 2.4 %; Hematocrit 39.2 % (37.5-50.1); Hemoglobin 13.1 g/dL (12.9-16.9); Immature Granulocytes % 0.4 % (0-4); Lymphocytes # 3.1 K/mcL (0.6-4.6); Lymphocytes % 28.4 %; Mean Corpuscular HGB Conc 33.4 g/dL (31.6-35.5); Mean Corpuscular Hemoglobin 30.8 pg (28.0-33.3); Mean Corpuscular Volume 92.2 fL (83.0-100.0); Mean Platelet Volume 9.6 fL (9.4-12.4); Monocytes # 1.1 K/mcL (0.0-1.3); Monocytes % 9.7 %; Neutrophils # 6.5 K/mcL (1.6-8.9); Platelet Count 240 K/mcL (140-400); Red Blood Count 4.25 M/mcL (4.19-5.50); Red Cell Distribution Width 13.2 % (11.5-14.5); Segmented Neutrophils % 58.6 %
[2020-05-16 18:01] LABS: Acetaminophen < 10 mcg/mL (10-20); BUN/Creatinine Ratio 19 (6-26); Blood Urea Nitrogen 15 mg/dL (6-20); Calcium 9.2 mg/dL (8.6-10.3); Carbon Dioxide 25 mEq/L (23-29); Chloride 106 mEq/L (98-107); Ethanol < 10 mg/dL (Less than 10); Glucose 87 mg/dL (70-105); Osmolality,Calculated 288 (280-300); Potassium 3.6 mEq/L (3.5-5.1); Salicylate < 2.5 mg/dL (15.0-30.0); Sodium 139 mEq/L (136-145); eGFR For African Americans > 60 (> 60); eGFR For Non-African Americans > 60 (> 60)
[2020-05-16 18:13] LABS: Thyroid Stimulating Hormone 1.269 mcIU/mL (0.340-5.600)
[2020-05-16 19:24] LABS: Bilirubin,Urine Negative (Negative); Blood,Urine Negative (Negative); Clarity,Urine Clear (Clear); Color,Urine Light-Yellow (Yellow); Glucose,Urine (UA) Normal (Normal); Ketones,Urine Negative (Negative); Leukocyte Esterase,Urine Negative (Negative); Nitrite,Urine Negative (Negative); Protein,Urine Trace mg/dL (Neg-Trace)
[2020-05-16] MEDS ORDERED: Acetaminophen 325 MG TABLET PO ONE (19:27)
[2020-05-16 19:37] LABS: Amphetamine Screen,Urine Positive ng/mL (Cutoff=1000); Barbiturate Screen,Urine Negative ng/mL (Cutoff=200); Benzodiazepines Screen,Urine Negative ng/mL (Cutoff=200); Cannabinoid Screen,Urine Negative ng/mL (Cutoff = 50); Cocaine Screen,Urine Negative ng/mL (Cutoff= 300); Opiate Screen,Urine Negative ng/mL (Cutoff=300); Phencyclidine Screen,Urine Negative ng/mL (Cutoff=25)
[2020-05-16] MEDS ORDERED: *HR* LORazepam 1 MG TABLET PO PRN (23:36)
[2020-05-16] MEDS ORDERED: *HR* LORazepam 2 MG/ML VIAL IM PRN (23:36)
[2020-05-16] MEDS ORDERED: haloperidoL 5 MG TABLET PO PRN (23:36)
[2020-05-16] MEDS ORDERED: Haloperidol Lactate 5 MG/ML VIAL IM PRN (23:36)
[2020-05-16] MEDS ORDERED: MOM Conc 10 ML UD.LIQ PO PRN (23:36)
[2020-05-16] MEDS ORDERED: Mag Hydrox/Al Hydrox/Simeth 30 ML UDC PO PRN (23:36)
[2020-05-17] MEDS: hydrOXYzine pamoate 25 MG CAPSULE PO PRN ×2 (00:12→21:06)
[2020-05-17] MEDS: Ibuprofen 400 MG TABLET PO PRN ×2 (00:12→10:48)
[2020-05-17] MEDS: Melatonin 3 MG TABLET PO SCH ×2 (00:13→21:06)
[2020-05-17] MEDS: ARIPiprazole 2 MG TABLET PO SCH (10:19)
[2020-05-17] MEDS: ARIPiprazole 5 MG TABLET PO SCH (10:19)
[2020-05-17] MEDS: Nicotine 21 MG PATCH.TD24 TD SCH (10:20)
[2020-05-17] MEDS ORDERED: Ibuprofen 800 MG TABLET PO ONE (17:39)
[2020-05-18] MEDS: Nicotine 21 MG PATCH.TD24 TD SCH (09:20)
[2020-05-18] MEDS: ARIPiprazole 2 MG TABLET PO SCH (09:20)
[2020-05-18] MEDS: Ibuprofen 400 MG TABLET PO PRN ×2 (09:20→18:51)
[2020-05-18] MEDS: ARIPiprazole 5 MG TABLET PO SCH (09:20)
[2020-05-18] MEDS: hydrOXYzine pamoate 25 MG CAPSULE PO PRN (18:51)
[2020-05-18] MEDS ORDERED: OLANZapine 10 MG TAB.RAPDIS PO SCH (21:00)
[2020-05-18] MEDS: Melatonin 3 MG TABLET PO SCH (21:50)
[2020-05-19 09:02] VITALS: BP 125/85
[2020-05-19] MEDS: Ibuprofen 400 MG TABLET PO PRN (09:18)
[2020-05-19] MEDS: Nicotine 21 MG PATCH.TD24 TD SCH (09:19)
== END 2020-05-19 13:25 | disposition home or self-care (01) | DRG 750 ==
LOC: EMEROOARM 16:41 → 1ANU 16:41
PROVIDERS: ADMIT Psychiatry & Neurology Psychiatry; ATTEND Psychiatry & Neurology Psychiatry

== ENCOUNTER 2020-06-12 20:50 | Inpatient (IN) ==
[2020-06-12] MEDS ORDERED: Morphine Sulfate 2 MG/ML SYRINGE IVP ONE (21:09)
[2020-06-12] MEDS ORDERED: Piperacillin/Tazobactam 3.375 GM in 0.9 % Sodium Chloride Mini Bag 100 ML IVPB ONE (21:09)
[2020-06-12] MEDS ORDERED: Vancomycin 2,000 MG/520 ML IV.SOLN IVPB ONE (21:09)
[2020-06-12 21:38] LABS: Basophils # 0.1 K/mcL (0.0-0.2); Basophils % 0.4 %; Eosinophils # 0.2 K/mcL (0.0-0.6); Eosinophils % 1.6 %; Hemoglobin 13.4 g/dL (12.9-16.9); Immature Granulocytes % 0.4 % (0-4); Lymphocytes # 2.4 K/mcL (0.6-4.6); Lymphocytes % 18.7 %; Mean Corpuscular HGB Conc 34.4 g/dL (31.6-35.5); Mean Corpuscular Hemoglobin 30.7 pg (28.0-33.3); Mean Corpuscular Volume 89.4 fL (83.0-100.0); Mean Platelet Volume 9.9 fL (9.4-12.4); Monocytes # 1.3 K/mcL (0.0-1.3); Monocytes % 10.2 %; Neutrophils # 8.6 K/mcL (1.6-8.9); Platelet Count 256 K/mcL (140-400); Red Blood Count 4.36 M/mcL (4.19-5.50); Red Cell Distribution Width 12.7 % (11.5-14.5); Segmented Neutrophils % 68.7 %; White Blood Count 12.5 K/mcL (4.3-11.1)
[2020-06-12 22:02] LABS: BUN/Creatinine Ratio 20 (6-26); Blood Urea Nitrogen 18 mg/dL (6-20); Calcium 8.9 mg/dL (8.6-10.3); Carbon Dioxide 27 mEq/L (23-29); Chloride 102 mEq/L (98-107); Glucose 97 mg/dL (70-105); Osmolality,Calculated 290 (280-300); Potassium 3.2 mEq/L (3.5-5.1); Sodium 139 mEq/L (136-145); eGFR For African Americans > 60 (> 60); eGFR For Non-African Americans > 60 (> 60)
[2020-06-12] MEDS ORDERED: *HR* FentaNYL (PF) 100 MCG/2 ML VIAL IVP ONE (22:21)
[2020-06-12 22:38] LABS: Acetaminophen < 10 mcg/mL (10-20); Alanine Aminotransferase 45 Units/L (7-52); Albumin 4.1 g/dL (3.5-5.7); Albumin/Globulin Ratio 1.4 (1.1-2.2); Alkaline Phosphatase 70 Units/L (34-104); Aspartate Amino Transferase 33 Units/L (13-39); Bilirubin,Direct 0.3 mg/dL (0.0-0.2); Bilirubin,Indirect 0.7 mg/dL (0.0-1.0); Ethanol < 10 mg/dL (Less than 10); Salicylate < 2.5 mg/dL (15.0-30.0); Total Protein 7.1 g/dL (6.4-8.9)
[2020-06-12 23:04] LABS: Bilirubin,Urine Negative (Negative); Blood,Urine Negative (Negative); Clarity,Urine Clear (Clear); Color,Urine Light-Yellow (Yellow); Glucose,Urine (UA) Normal (Normal); Ketones,Urine 10 mg/dL (Negative); Leukocyte Esterase,Urine Negative (Negative); Mucus,Urine Few per lpf (None-Few); Nitrite,Urine Negative (Negative); Protein,Urine 50 mg/dL (Neg-Trace); RBC,Urine 0-3 per hpf (0-3); Specific Gravity,Urine > 1.030 (1.010-1.025); Squamous Epithelial Cell,Urine Few per hpf (None-Few); WBC,Urine 0-3 per hpf (0-3)
[2020-06-12 23:10] LABS: Amphetamine Screen,Urine Positive ng/mL (Cutoff=1000); Barbiturate Screen,Urine Negative ng/mL (Cutoff=200); Benzodiazepines Screen,Urine Negative ng/mL (Cutoff=200); Cannabinoid Screen,Urine Negative ng/mL (Cutoff = 50); Cocaine Screen,Urine Negative ng/mL (Cutoff= 300); Opiate Screen,Urine Positive ng/mL (Cutoff=300); Phencyclidine Screen,Urine Negative ng/mL (Cutoff=25)
[2020-06-13] MEDS ORDERED: Naloxone 0.4 MG/ML INJ IVP PRN (00:08)
[2020-06-13] MEDS ORDERED: Ondansetron 4 MG/2 ML VIAL IVP PRN (00:08)
[2020-06-13] MEDS ORDERED: Acetaminophen 325 MG TABLET PO PRN (00:08)
[2020-06-13] MEDS ORDERED: *HR* OxyCODONE Immed Rel 5 MG TABLET PO PRN (01:03)
[2020-06-13 02:40] LABS: INR 1.2; Prothrombin Time 13.6 Seconds (9.4-12.1)
[2020-06-13 03:33] LABS: Basophils % 0.4 %; Eosinophils # 0.3 K/mcL (0.0-0.6); Eosinophils % 2.3 %; Hematocrit 35.1 % (37.5-50.1); Immature Granulocytes % 0.4 % (0-4); Lymphocytes # 3.2 K/mcL (0.6-4.6); Lymphocytes % 30.2 %; Mean Corpuscular HGB Conc 34.2 g/dL (31.6-35.5); Mean Corpuscular Hemoglobin 30.5 pg (28.0-33.3); Mean Corpuscular Volume 89.1 fL (83.0-100.0); Mean Platelet Volume 10.5 fL (9.4-12.4); Monocytes # 1.4 K/mcL (0.0-1.3); Monocytes % 12.6 %; Neutrophils # 5.8 K/mcL (1.6-8.9); Platelet Count 215 K/mcL (140-400); Red Blood Count 3.94 M/mcL (4.19-5.50); Red Cell Distribution Width 12.7 % (11.5-14.5); Segmented Neutrophils % 54.1 %; White Blood Count 10.7 K/mcL (4.3-11.1)
[2020-06-13 03:49] LABS: BUN/Creatinine Ratio 22 (6-26); Blood Urea Nitrogen 16 mg/dL (6-20); Calcium 8.4 mg/dL (8.6-10.3); Carbon Dioxide 24 mEq/L (23-29); Chloride 105 mEq/L (98-107); Glucose 94 mg/dL (70-105); Osmolality,Calculated 285 (280-300); Potassium 3.4 mEq/L (3.5-5.1); Sodium 137 mEq/L (136-145); eGFR For African Americans > 60 (> 60); eGFR For Non-African Americans > 60 (> 60)
[2020-06-13] MEDS: Vancomycin 1,250 MG/262.5 ML IV.SOLN IVPB SCH ×3 (04:13→20:35)
[2020-06-13] MEDS ORDERED: Morphine Sulfate 2 MG/ML SYRINGE IVP ONE ×2 (05:04→10:29)
[2020-06-13] MEDS: 0.9 % Sodium Chloride 1,000 ML IVC SCH ×2 (05:20→08:32)
[2020-06-13] MEDS ORDERED: Gadolinium Contrast Agent (WT Based) IV PRN (07:43)
[2020-06-13] MEDS: Piperacillin/Tazobactam 3.375 GM in 0.9 % Sodium Chloride Mini Bag 100 ML IVPB SCH ×2 (08:32→16:19)
[2020-06-13] MEDS: *HR* OxyCODONE Immed Rel 5 MG TABLET PO PRN ×3 (08:33→23:17)
[2020-06-13] MEDS ORDERED: *HR* LORazepam 2 MG/ML VIAL IVP ONE (10:29)
[2020-06-13] MEDS ORDERED: OLANZapine 10 MG TAB.RAPDIS PO PRN (12:04)
[2020-06-13 14:23] LABS: Adenovirus Not Detected (Not Detect); Bordetella Pertussis Not Detected (Not Detect); Chlamydophila pneumoniae Not Detected (Not Detect); Coronavirus 229E Not Detected (Not Detect); Coronavirus HKU1 Not Detected (Not Detect); Coronavirus NL63 Not Detected (Not Detect); Coronavirus OC43 Not Detected (Not Detect); Human Metapneumovirus Not Detected (Not Detect); Human Rhinovirus/Enterovirus Not Detected (Not Detect); Influenza A Subtype 2009 H1 Not Detected (Not Detect); Influenza B Not Detected (Not Detect); Mycoplasma pneumoniae Not Detected (Not Detect); Parainfluenza Virus 1 Not Detected (Not Detect); Parainfluenza Virus 2 Not Detected (Not Detect); Parainfluenza Virus 3 Not Detected (Not Detect); Parainfluenza Virus 4 Not Detected (Not Detect); Respiratory Syncytial Virus Not Detected (Not Detect); SARS-CoV-2 Not Detected (Not Detect)
[2020-06-13] MEDS ORDERED: *HR* FentaNYL (PF) 100 MCG/2 ML VIAL ONE (17:12)
[2020-06-13] MEDS ORDERED: *HR* Propofol 200 MG/20 ML VIAL IVP ONE ×2 (17:12→18:13)
[2020-06-13] MEDS ORDERED: *HR* Midazolam HCl 2 MG/2 ML VIAL ONE (17:12)
[2020-06-13] MEDS ORDERED: Ondansetron 4 MG/2 ML VIAL ONE (17:15)
[2020-06-13] MEDS ORDERED: Lidocaine -MPF 2% 2 ML VIAL ONE (17:15)
[2020-06-13] MEDS ORDERED: *HR* HYDROMORPHONE 2 MG/ML VIAL ONE (18:32)
[2020-06-13] MEDS: *HR* LORazepam 2 MG/ML VIAL IVP PRN (20:16)
[2020-06-14] MEDS: Piperacillin/Tazobactam 3.375 GM in 0.9 % Sodium Chloride Mini Bag 100 ML IVPB SCH ×4 (01:59→23:45)
[2020-06-14] MEDS: *HR* LORazepam 2 MG/ML VIAL IVP PRN ×3 (04:32→23:54)
[2020-06-14 05:07] LABS: Basophils % 0.4 %; Eosinophils # 0.3 K/mcL (0.0-0.6); Eosinophils % 3.2 %; Hematocrit 34.4 % (37.5-50.1); Hemoglobin 11.8 g/dL (12.9-16.9); Immature Granulocytes % 0.4 % (0-4); Lymphocytes # 3.1 K/mcL (0.6-4.6); Lymphocytes % 37.2 %; Mean Corpuscular HGB Conc 34.3 g/dL (31.6-35.5); Mean Corpuscular Hemoglobin 31.2 pg (28.0-33.3); Mean Platelet Volume 10.3 fL (9.4-12.4); Monocytes % 12.1 %; Neutrophils # 3.9 K/mcL (1.6-8.9); Platelet Count 213 K/mcL (140-400); Red Blood Count 3.78 M/mcL (4.19-5.50); Red Cell Distribution Width 12.9 % (11.5-14.5); Segmented Neutrophils % 46.7 %; White Blood Count 8.4 K/mcL (4.3-11.1)
[2020-06-14 05:28] LABS: BUN/Creatinine Ratio 11 (6-26); Blood Urea Nitrogen 9 mg/dL (6-20); Calcium 8.5 mg/dL (8.6-10.3); Carbon Dioxide 26 mEq/L (23-29); Chloride 105 mEq/L (98-107); Glucose 100 mg/dL (70-105); Magnesium 2.1 mg/dL (1.6-2.6); Osmolality,Calculated 285 (280-300); Phosphorous 3.7 mg/dL (2.7-4.5); Potassium 3.8 mEq/L (3.5-5.1); Sodium 138 mEq/L (136-145); eGFR For African Americans > 60 (> 60); eGFR For Non-African Americans > 60 (> 60)
[2020-06-14] MEDS ORDERED: *HR* OxyCODONE/APAP 10/325 TABLET PO PRN (06:04)
[2020-06-14] MEDS ORDERED: *HR* OxyCODONE Immed Rel 5 MG TABLET PO PRN (07:14)
[2020-06-14] MEDS ORDERED: Acetaminophen 325 MG TABLET PO PRN (07:14)
[2020-06-14] MEDS ORDERED: Gadolinium Contrast Agent (WT Based) IV PRN (07:14)
[2020-06-14] MEDS ORDERED: *HR* LORazepam 2 MG/ML VIAL IVP PRN (07:14)
[2020-06-14] MEDS ORDERED: Ondansetron 4 MG/2 ML VIAL IVP PRN (07:14)
[2020-06-14] MEDS ORDERED: Naloxone 0.4 MG/ML INJ IVP PRN (07:14)
[2020-06-14] MEDS: Vancomycin 1,250 MG/262.5 ML IV.SOLN IVPB SCH ×4 (07:53→23:46)
[2020-06-14] MEDS: *HR* OxyCODONE Immed Rel 5 MG TABLET PO PRN ×4 (09:04→20:11)
[2020-06-14] MEDS ORDERED: *HR* Enoxaparin 40 MG/0.4 ML SYRINGE SQ ONE (10:54)
[2020-06-14] MEDS ORDERED: *HR* OxyCODONE Immed Rel 5 MG TABLET PO STA (11:57)
[2020-06-14] MEDS: Nicotine 2 MG GUM BC PRN (12:05)
[2020-06-15 02:25] LABS: BUN/Creatinine Ratio 16 (6-26); Blood Urea Nitrogen 14 mg/dL (6-20); Calcium 8.3 mg/dL (8.6-10.3); Carbon Dioxide 28 mEq/L (23-29); Chloride 107 mEq/L (98-107); Glucose 119 mg/dL (70-105); Osmolality,Calculated 288 (280-300); Potassium 4.3 mEq/L (3.5-5.1); Sodium 138 mEq/L (136-145); eGFR For African Americans > 60 (> 60); eGFR For Non-African Americans > 60 (> 60)
[2020-06-15] MEDS: *HR* OxyCODONE Immed Rel 5 MG TABLET PO PRN ×5 (02:46→21:20)
[2020-06-15] MEDS: *HR* Enoxaparin 40 MG/0.4 ML SYRINGE SQ SCH (06:03)
[2020-06-15] MEDS: *HR* LORazepam 2 MG/ML VIAL IVP PRN ×4 (06:08→19:31)
[2020-06-15] MEDS: Vancomycin 1,250 MG/262.5 ML IV.SOLN IVPB SCH ×2 (08:20→17:08)
[2020-06-15] MEDS: Piperacillin/Tazobactam 3.375 GM in 0.9 % Sodium Chloride Mini Bag 100 ML IVPB SCH ×3 (11:01→19:31)
[2020-06-15] MEDS: Nicotine 21 MG PATCH.TD24 TD SCH (12:07)
[2020-06-16] MEDS: Vancomycin 1,250 MG/262.5 ML IV.SOLN IVPB SCH ×2 (00:18→07:24)
[2020-06-16] MEDS: *HR* LORazepam 2 MG/ML VIAL IVP PRN ×3 (00:27→11:46)
[2020-06-16] MEDS: *HR* OxyCODONE Immed Rel 5 MG TABLET PO PRN ×6 (03:20→23:48)
[2020-06-16] MEDS: Piperacillin/Tazobactam 3.375 GM in 0.9 % Sodium Chloride Mini Bag 100 ML IVPB SCH (03:21)
[2020-06-16] MEDS: *HR* Enoxaparin 40 MG/0.4 ML SYRINGE SQ SCH (05:44)
[2020-06-16] MEDS: Nicotine 21 MG PATCH.TD24 TD SCH ×2 (07:20→22:40)
[2020-06-16] MEDS: Sulfamethoxazole/Trimeth DS 1 EACH TABLET PO SCH ×2 (09:30→19:45)
[2020-06-16] MEDS ORDERED: Haloperidol Lactate 5 MG/ML VIAL IM PRN (14:14)
[2020-06-16] MEDS ORDERED: *HR* LORazepam 2 MG/ML VIAL IM PRN (14:18)
[2020-06-16] MEDS: *HR* LORazepam 1 MG TABLET PO PRN ×2 (15:42→19:45)
[2020-06-16] MEDS: *HR* HYDROcodone/Acet 5/325 mg TABLET PO PRN (21:54)
[2020-06-17] MEDS: *HR* LORazepam 1 MG TABLET PO PRN ×4 (03:40→18:45)
[2020-06-17] MEDS: Ondansetron ODT 4 MG TAB.RAPDIS SL PRN (03:41)
[2020-06-17] MEDS: *HR* OxyCODONE Immed Rel 5 MG TABLET PO PRN ×5 (03:42→23:00)
[2020-06-17] MEDS: *HR* Enoxaparin 40 MG/0.4 ML SYRINGE SQ SCH (06:11)
[2020-06-17] MEDS: Nicotine 21 MG PATCH.TD24 TD SCH (08:19)
[2020-06-17] MEDS: Sulfamethoxazole/Trimeth DS 1 EACH TABLET PO SCH ×2 (08:23→21:09)
[2020-06-17] MEDS ORDERED: *HR* OxyCODONE Immed Rel 5 MG TABLET PO ONE (11:05)
[2020-06-17] MEDS ORDERED: Ketorolac 15 MG/ML VIAL IVP SCH (12:00)
[2020-06-17] MEDS ORDERED: Ibuprofen 600 MG TABLET PO PRN (13:32)
[2020-06-17] MEDS ORDERED: Ketorolac 30 MG/ML VIAL IM PRN (13:55)
[2020-06-18] MEDS: *HR* OxyCODONE Immed Rel 5 MG TABLET PO PRN ×4 (03:00→21:33)
[2020-06-18] MEDS: *HR* LORazepam 1 MG TABLET PO PRN ×4 (03:00→21:32)
[2020-06-18 03:03] LABS: Basophils % 0.5 %; Eosinophils # 0.3 K/mcL (0.0-0.6); Eosinophils % 3.3 %; Hematocrit 38.5 % (37.5-50.1); Hemoglobin 12.8 g/dL (12.9-16.9); Immature Granulocytes % 0.4 % (0-4); Lymphocytes # 2.5 K/mcL (0.6-4.6); Lymphocytes % 30.4 %; Mean Corpuscular HGB Conc 33.2 g/dL (31.6-35.5); Mean Corpuscular Hemoglobin 30.9 pg (28.0-33.3); Mean Platelet Volume 9.9 fL (9.4-12.4); Monocytes % 12.1 %; Neutrophils # 4.3 K/mcL (1.6-8.9); Platelet Count 266 K/mcL (140-400); Red Blood Count 4.14 M/mcL (4.19-5.50); Red Cell Distribution Width 12.7 % (11.5-14.5); Segmented Neutrophils % 53.3 %; White Blood Count 8.1 K/mcL (4.3-11.1)
[2020-06-18 03:17] LABS: BUN/Creatinine Ratio 16 (6-26); Blood Urea Nitrogen 18 mg/dL (6-20); Calcium 8.8 mg/dL (8.6-10.3); Carbon Dioxide 25 mEq/L (23-29); Chloride 102 mEq/L (98-107); Glucose 97 mg/dL (70-105); Osmolality,Calculated 284 (280-300); Potassium 4.2 mEq/L (3.5-5.1); Sodium 136 mEq/L (136-145); eGFR For African Americans > 60 (> 60); eGFR For Non-African Americans > 60 (> 60)
[2020-06-18] MEDS: Nicotine 2 MG GUM BC PRN (04:00)
[2020-06-18] MEDS: *HR* Enoxaparin 40 MG/0.4 ML SYRINGE SQ SCH (05:27)
[2020-06-18] MEDS: Nicotine 21 MG PATCH.TD24 TD SCH (07:22)
[2020-06-18] MEDS: Sulfamethoxazole/Trimeth DS 1 EACH TABLET PO SCH ×2 (07:22→20:10)
[2020-06-18] MEDS: Ondansetron ODT 4 MG TAB.RAPDIS SL PRN ×2 (11:02→20:10)
[2020-06-18] MEDS: *HR* HYDROcodone/Acet 5/325 mg TABLET PO PRN ×2 (14:46→20:10)
[2020-06-18 21:10] LABS: Bilirubin,Urine Negative (Negative); Blood,Urine Negative (Negative); Clarity,Urine Clear (Clear); Color,Urine Light-Yellow (Yellow); Glucose,Urine (UA) Normal (Normal); Ketones,Urine Negative (Negative); Leukocyte Esterase,Urine Negative (Negative); Nitrite,Urine Negative (Negative); PH,Urine 6.5 pH Units (5.0-8.0); Protein,Urine Negative (Neg-Trace); Specific Gravity,Urine 1.028 (1.010-1.025); Urobilinogen,Urine Normal (Normal)
[2020-06-19 03:33] VITALS: BP 118/70
[2020-06-19] MEDS: *HR* Enoxaparin 40 MG/0.4 ML SYRINGE SQ SCH (09:25)
[2020-06-19] MEDS: Nicotine 21 MG PATCH.TD24 TD SCH (09:25)
[2020-06-19] MEDS: Sulfamethoxazole/Trimeth DS 1 EACH TABLET PO SCH (09:26)
== END 2020-06-19 09:35 | disposition home or self-care (01) | DRG 720 ==
LOC: 2ANU 20:50 → EMEROOARM 20:50 → SUATTDRO 23:34 → 2ANU 06-13 00:08
PROVIDERS: ADMIT Internal Medicine; ATTEND Internal Medicine